=== PATIENT | male | born 1970 | race Caucasian/White ===

== ENCOUNTER 2016-05-21 06:36 | Emergency (ER) | payer MEDICAID ==
[~2016-05-21] VITALS: Ht 177.8 cm; Wt 93.0 kg
[2016-05-21] MEDS ORDERED: cloNIDine HCL 0.1 MG TAB ONE (06:53)
[2016-05-21] MEDS ORDERED: cloNIDine HCL 0.1 MG TAB PO ONE (07:00)
[2016-05-21 07:46] LABS: Basophils # (auto) 0 uL; Basophils % (auto) 0.5 % (0.0-2.0); Eosinophils # (auto) 0.3 uL; Eosinophils % (auto) 3.2 % (0.0-7.0); Hematocrit 36.8 % (41.0-53.0); Hemoglobin 12.4 g/dL (13.5-17.5); Lymphocytes # (auto) 2.1 uL; Lymphocytes % (auto) 24.8 % (10.0-50.0); Mean Corpuscular Hemoglobin 28.5 pg (28.0-32.0); Mean Corpuscular Hgb Conc. 33.6 g/dL (32.0-36.0); Mean Corpuscular Volume 84.8 fL (80.0-100.0); Mean Platelet Volume 7.9 fL (7.4-10.4); Monocytes # (auto) 0.5 uL; Monocytes % (auto) 6.1 % (0.0-12.0); Neutrophils # (auto) 5.7 uL; Neutrophils % (auto) 65.4 % (37.0-80.0); Platelet Count (auto) 316 10^3/uL (140-450); Red Cell Distribution Width 13.5 % (11.6-16.0); White Blood Cell 8.7 10^3/uL (4.4-10.8)
[2016-05-21 08:01] LABS: Urine Bilirubin Negative (Negative); Urine Blood Negative /uL (Negative); Urine Color Yellow (Yellow); Urine Glucose Normal (Normal); Urine Ketone Negative (Negative); Urine Nitrite Negative (Negative); Urine RBC 3 /hpf (0 - 3); Urine Urobilinogen Normal (Negative)
[2016-05-21 08:11] LABS: Albumin 3.6 g/dL (3.4-5.0); BUN/Creatinine Ratio 13.6; Bilirubin, Total 0.3 mg/dL (0.2-1.0); Calcium 9.2 mg/dL (8.5-10.1); Potassium 4.5 mmol/L (3.5-5.1); Total Protein 8.1 g/dL (6.4-8.2)
[2016-05-21] MEDS ORDERED: cefTRIAXone SOD 1,000 MG VL IM ONE (12:30)
[2016-05-21 12:40] VITALS: BP 120/71
== END 2016-05-21 13:03 | disposition home or self-care (01) ==
LOC: ER 06:36
DX: N17.9 Acute kidney failure, unspecified (principal); I12.9 Hypertensive chronic kidney disease with stage 1 through stage 4 chronic kidney disease, or unspecified chronic kidney disease; N39.0 Urinary tract infection, site not specified; N18.9 Chronic kidney disease, unspecified; E11.22 Type 2 diabetes mellitus with diabetic chronic kidney disease; G89.29 Other chronic pain; M54.5 Low back pain; M19.90 Unspecified osteoarthritis, unspecified site; Z59.0 Homelessness; F12.10 Cannabis abuse, uncomplicated; E27.9 Disorder of adrenal gland, unspecified
CPT/HCPCS: 36415; 74176; 80053; 81001; 82150; 83690; 85025; 96372; 99285; J0696

== ENCOUNTER 2016-06-12 05:58 | Emergency (ER) | payer MEDICAID ==
[~2016-06-12] VITALS: Ht 180.3 cm; Wt 102.1 kg
[2016-06-12 06:37] LABS: Urine Bilirubin Negative (Negative); Urine Blood Negative /uL (Negative); Urine Color Yellow (Yellow); Urine Glucose Normal (Normal); Urine Ketone TRACE (Negative); Urine Nitrite Negative (Negative); Urine RBC 2 /hpf (0 - 3); Urine Urobilinogen Normal (Negative)
[2016-06-12 06:56] LABS: Basophils # (auto) 0 uL; Basophils % (auto) 0.6 % (0.0-2.0); Eosinophils # (auto) 0.2 uL; Eosinophils % (auto) 2.5 % (0.0-7.0); Hematocrit 42.6 % (41.0-53.0); Lymphocytes # (auto) 2.2 uL; Lymphocytes % (auto) 26.4 % (10.0-50.0); Mean Corpuscular Hemoglobin 28.1 pg (28.0-32.0); Mean Corpuscular Hgb Conc. 32.9 g/dL (32.0-36.0); Mean Corpuscular Volume 85.5 fL (80.0-100.0); Monocytes # (auto) 0.6 uL; Monocytes % (auto) 6.6 % (0.0-12.0); Neutrophils # (auto) 5.4 uL; Neutrophils % (auto) 63.9 % (37.0-80.0); Platelet Count (auto) 353 10^3/uL (140-450); Red Cell Distribution Width 13.4 % (11.6-16.0); White Blood Cell 8.4 10^3/uL (4.4-10.8)
[2016-06-12 07:08] LABS: BUN/Creatinine Ratio 11.7; Bilirubin, Total 0.3 mg/dL (0.2-1.0); Calcium 9.6 mg/dL (8.5-10.1); Magnesium 2.2 mg/dL (1.6-2.6); Potassium 3.7 mmol/L (3.5-5.1); Total Protein 8.2 g/dL (6.4-8.2)
[2016-06-12] MEDS ORDERED: SODIUM CHLORIDE 0.9% 1,000 ML IV ONE (08:00)
[2016-06-12] MEDS ORDERED: PROMETHAZINE HCL 25 MG/ML 1ML IV ONE (08:00)
[2016-06-12] MEDS ORDERED: MORPHINE SULFATE 4 MG/ML SYRG IV ONE (08:00)
[2016-06-12 15:28] VITALS: BP 154/90
== END 2016-06-12 15:27 | disposition home or self-care (01) ==
LOC: ER 06:01
DX: N39.0 Urinary tract infection, site not specified (principal); E11.65 Type 2 diabetes mellitus with hyperglycemia; F15.10 Other stimulant abuse, uncomplicated; G89.29 Other chronic pain; M54.5 Low back pain; Z59.0 Homelessness; M19.90 Unspecified osteoarthritis, unspecified site; E11.22 Type 2 diabetes mellitus with diabetic chronic kidney disease; I12.9 Hypertensive chronic kidney disease with stage 1 through stage 4 chronic kidney disease, or unspecified chronic kidney disease; N18.9 Chronic kidney disease, unspecified
CPT/HCPCS: 36415; 80053; 81001; 82150; 82962; 83690; 83735; 84484; 85025; 93005; 96361; 96374; 96375; 99285; G0434; J2270; J2550; J7030

== ENCOUNTER 2016-06-19 02:51 | Emergency (ER) | payer MEDICAID ==
[~2016-06-19] VITALS: Ht 180.3 cm; Wt 99.3 kg
[2016-06-19 03:38] LABS: Basophils # (auto) 0 uL; Basophils % (auto) 0.5 % (0.0-2.0); Eosinophils # (auto) 0.3 uL; Eosinophils % (auto) 3.3 % (0.0-7.0); Hematocrit 40.2 % (41.0-53.0); Hemoglobin 13.1 g/dL (13.5-17.5); Lymphocytes # (auto) 2.5 uL; Lymphocytes % (auto) 30.1 % (10.0-50.0); Mean Corpuscular Hemoglobin 27.7 pg (28.0-32.0); Mean Corpuscular Hgb Conc. 32.5 g/dL (32.0-36.0); Mean Corpuscular Volume 85.1 fL (80.0-100.0); Mean Platelet Volume 8.6 fL (7.4-10.4); Monocytes # (auto) 0.7 uL; Monocytes % (auto) 7.8 % (0.0-12.0); Neutrophils # (auto) 4.9 uL; Neutrophils % (auto) 58.3 % (37.0-80.0); Platelet Count (auto) 269 10^3/uL (140-450); Red Cell Distribution Width 13.6 % (11.6-16.0); White Blood Cell 8.5 10^3/uL (4.4-10.8)
[2016-06-19 03:59] LABS: Albumin 3.7 g/dL (3.4-5.0); BUN/Creatinine Ratio 8.6; Calcium 9.1 mg/dL (8.5-10.1); Potassium 3.6 mmol/L (3.5-5.1)
[2016-06-19 04:02] LABS: Bilirubin, Total 0.3 mg/dL (0.2-1.0); Total Protein 7.6 g/dL (6.4-8.2)
[2016-06-19 04:28] LABS: Urine Bilirubin Negative (Negative); Urine Blood Negative /uL (Negative); Urine Color Yellow (Yellow); Urine Glucose Normal (Normal); Urine Ketone Negative (Negative); Urine Nitrite Negative (Negative); Urine RBC 3 /hpf (0 - 3); Urine Urobilinogen Normal (Negative)
[2016-06-19] MEDS ORDERED: MECLIZINE HCL 25 MG TAB PO ONE (10:30)
[2016-06-19] MEDS ORDERED: SODIUM CHLORIDE 0.9% 1,000 ML IV ONE (10:30)
[2016-06-19 10:35] VITALS: BP 156/95
[2016-06-19] MEDS ORDERED: CIPROFLOXACIN HCL 500 MG TAB PO ONE (11:45)
== END 2016-06-19 12:24 | disposition home or self-care (01) ==
LOC: ER 02:56
DX: N39.0 Urinary tract infection, site not specified (principal); M19.90 Unspecified osteoarthritis, unspecified site; I12.9 Hypertensive chronic kidney disease with stage 1 through stage 4 chronic kidney disease, or unspecified chronic kidney disease; N18.9 Chronic kidney disease, unspecified; E11.22 Type 2 diabetes mellitus with diabetic chronic kidney disease; F12.10 Cannabis abuse, uncomplicated; Z59.0 Homelessness; F19.90 Other psychoactive substance use, unspecified, uncomplicated
CPT/HCPCS: 36415; 70450; 80053; 81001; 84484; 85025; 93005; 96360; 99285; G0434; J7030; J8597

== ENCOUNTER 2016-06-27 01:04 | Emergency (ER) | payer MEDICAID ==
[~2016-06-27] VITALS: Ht 180.3 cm; Wt 103.0 kg
[2016-06-27] MEDS ORDERED: SODIUM CHLORIDE 0.9% 1,000 ML IV ONE (07:20)
[2016-06-27] MEDS ORDERED: METOCLOPRAMIDE HCL 5MG/ml INJ 2ml VIAL IV ONE (07:30)
[2016-06-27] MEDS ORDERED: KETOROLAC TROMETH 30 MG/ML 1ML VIAL IV ONE (07:30)
[2016-06-27 08:00] LABS: Basophils # (auto) 0 uL; Basophils % (auto) 0.6 % (0.0-2.0); Eosinophils # (auto) 0.3 uL; Eosinophils % (auto) 4.2 % (0.0-7.0); Hematocrit 39.5 % (41.0-53.0); Hemoglobin 12.8 g/dL (13.5-17.5); Lymphocytes # (auto) 1.8 uL; Mean Corpuscular Hemoglobin 27.4 pg (28.0-32.0); Mean Corpuscular Hgb Conc. 32.4 g/dL (32.0-36.0); Mean Corpuscular Volume 84.6 fL (80.0-100.0); Mean Platelet Volume 8.6 fL (7.4-10.4); Monocytes # (auto) 0.6 uL; Monocytes % (auto) 7.3 % (0.0-12.0); Neutrophils # (auto) 5.2 uL; Neutrophils % (auto) 64.9 % (37.0-80.0); Platelet Count (auto) 275 10^3/uL (140-450); Red Cell Distribution Width 13.7 % (11.6-16.0)
[2016-06-27 08:28] LABS: Albumin 3.7 g/dL (3.4-5.0); Calcium 8.8 mg/dL (8.5-10.1); Magnesium 2.3 mg/dL (1.6-2.6); Potassium 3.3 mmol/L (3.5-5.1)
[2016-06-27 08:31] LABS: BUN/Creatinine Ratio 7.8
[2016-06-27 08:33] LABS: Bilirubin, Total 0.3 mg/dL (0.2-1.0); Total Protein 7.7 g/dL (6.4-8.2)
[2016-06-27 09:54] LABS: Urine Bilirubin Negative (Negative); Urine Blood Negative /uL (Negative); Urine Color Yellow (Yellow); Urine Glucose Normal (Normal); Urine Ketone Negative (Negative); Urine Nitrite Negative (Negative); Urine RBC 5 /hpf (0 - 3); Urine Squamous Epithelial Cell FEW /hpf (<5); Urine Urobilinogen Normal (Negative)
[2016-06-27] MEDS ORDERED: POTASSIUM CHL 10% (20 MEQ/15ML) ORAL SOLN PO ONE (11:30)
[2016-06-27 13:00] VITALS: BP 151/82
== END 2016-06-27 12:56 | disposition home or self-care (01) ==
LOC: ER 01:05
DX: M54.16 Radiculopathy, lumbar region (principal); N39.0 Urinary tract infection, site not specified; E11.21 Type 2 diabetes mellitus with diabetic nephropathy; E87.6 Hypokalemia; R91.1 Solitary pulmonary nodule; M19.90 Unspecified osteoarthritis, unspecified site; I12.9 Hypertensive chronic kidney disease with stage 1 through stage 4 chronic kidney disease, or unspecified chronic kidney disease; N18.9 Chronic kidney disease, unspecified; E11.22 Type 2 diabetes mellitus with diabetic chronic kidney disease; F12.10 Cannabis abuse, uncomplicated; Z59.0 Homelessness
CPT/HCPCS: 36415; 71020; 71250; 80053; 81001; 83735; 84443; 85025; 93005; 96361; 96374; 96375; 99285; J1885; J2765; J7030

== ENCOUNTER 2016-06-27 18:02 | Emergency (ER) | payer MEDICAID ==
[~2016-06-27] VITALS: Ht 180.3 cm; Wt 103.0 kg
[2016-06-27 18:53] LABS: Basophils # (auto) 0 uL; Basophils % (auto) 0.1 % (0.0-2.0); Eosinophils # (auto) 0.3 uL; Eosinophils % (auto) 4.1 % (0.0-7.0); Hematocrit 39.4 % (41.0-53.0); Hemoglobin 12.7 g/dL (13.5-17.5); Lymphocytes # (auto) 2.2 uL; Lymphocytes % (auto) 27.6 % (10.0-50.0); Mean Corpuscular Hemoglobin 27.6 pg (28.0-32.0); Mean Corpuscular Hgb Conc. 32.2 g/dL (32.0-36.0); Mean Corpuscular Volume 85.7 fL (80.0-100.0); Mean Platelet Volume 8.6 fL (7.4-10.4); Monocytes # (auto) 0.6 uL; Monocytes % (auto) 7.4 % (0.0-12.0); Neutrophils # (auto) 4.9 uL; Neutrophils % (auto) 60.8 % (37.0-80.0); Platelet Count (auto) 283 10^3/uL (140-450); Red Cell Distribution Width 13.7 % (11.6-16.0)
[2016-06-27 19:25] LABS: Albumin 3.7 g/dL (3.4-5.0); BUN/Creatinine Ratio 7.8; Bilirubin, Total 0.2 mg/dL (0.2-1.0); Calcium 8.5 mg/dL (8.5-10.1); Potassium 3.7 mmol/L (3.5-5.1); Total Protein 7.6 g/dL (6.4-8.2)
[2016-06-27] MEDS ORDERED: MORPHINE SULFATE 4 MG/ML SYRG IV ONE (20:00)
[2016-06-27] MEDS ORDERED: ONDANSETRON HCL 4 MG/2 ML VIAL IV ONE (20:00)
[2016-06-27] MEDS ORDERED: SODIUM CHLORIDE 0.9% 500 ML IV ONE (20:15)
[2016-06-27 20:20] LABS: Amylase 46 U/L (25-115)
[2016-06-27 20:28] LABS: Urine Bilirubin Negative (Negative); Urine Blood Negative /uL (Negative); Urine Color Yellow (Yellow); Urine Glucose Normal (Normal); Urine Ketone Negative (Negative); Urine Nitrite Negative (Negative); Urine RBC 2 /hpf (0 - 3); Urine Squamous Epithelial Cell FEW /hpf (<5); Urine Urobilinogen Normal (Negative)
[2016-06-27] MEDS ORDERED: cloNIDine HCL 0.1 MG TAB PO ONE (21:45)
[2016-06-28 03:45] VITALS: BP 136/71
== END 2016-06-28 03:48 | disposition home or self-care (01) ==
LOC: ER 18:06
DX: K52.9 Noninfective gastroenteritis and colitis, unspecified (principal); N39.0 Urinary tract infection, site not specified; F12.10 Cannabis abuse, uncomplicated; M19.90 Unspecified osteoarthritis, unspecified site; E11.9 Type 2 diabetes mellitus without complications; I12.9 Hypertensive chronic kidney disease with stage 1 through stage 4 chronic kidney disease, or unspecified chronic kidney disease; N18.9 Chronic kidney disease, unspecified; Z59.0 Homelessness
CPT/HCPCS: 36415; 74176; 80053; 80320; 81001; 82150; 83690; 84484; 85025; 93005; 96361; 96374; 96375; 99285; G0434; J2270; J2405

== ENCOUNTER 2016-07-03 15:15 | Inpatient (IN) | payer MEDICAID ==
[~2016-07-03] VITALS: Ht 180.3 cm; Wt 97.1 kg
[2016-07-03 15:54] LABS: Basophils # (auto) 0.1 uL; Basophils % (auto) 0.9 % (0.0-2.0); Eosinophils # (auto) 0.4 uL; Hematocrit 40.3 % (41.0-53.0); Hemoglobin 13.3 g/dL (13.5-17.5); Lymphocytes # (auto) 2.1 uL; Lymphocytes % (auto) 28.1 % (10.0-50.0); Mean Corpuscular Hemoglobin 27.9 pg (28.0-32.0); Mean Corpuscular Volume 84.4 fL (80.0-100.0); Mean Platelet Volume 8.8 fL (7.4-10.4); Monocytes # (auto) 0.5 uL; Monocytes % (auto) 6.9 % (0.0-12.0); Neutrophils # (auto) 4.5 uL; Neutrophils % (auto) 59.1 % (37.0-80.0); Platelet Count (auto) 295 10^3/uL (140-450); Red Cell Distribution Width 13.5 % (11.6-16.0); White Blood Cell 7.6 10^3/uL (4.4-10.8)
[2016-07-03 16:17] LABS: Albumin 3.6 g/dL (3.4-5.0); Anion Gap 9 (5-15); Aspartate Aminotransferase 13 U/L (15-37); BUN/Creatinine Ratio 7.1; Blood Urea Nitrogen 18 mg/dL (7-18); Calcium 8.7 mg/dL (8.5-10.1); Carbon Dioxide 25 mmol/L (21-32); Chloride 106 mmol/L (98-107); GFR African American 35 mL/min; GFR Non-African American 29 mL/min; Glucose 129 mg/dL (74-106); Potassium 3.4 mmol/L (3.5-5.1); Sodium 140 mmol/L (136-145)
[2016-07-03 16:22] LABS: Alkaline Phosphatase 60 U/L (45-117); Bilirubin, Total 0.3 mg/dL (0.2-1.0); Total Protein 7.5 g/dL (6.4-8.2)
[2016-07-03] MEDS ORDERED: SODIUM CHLORIDE 0.9% 1,000 ML IV ONE (20:10)
[2016-07-03] MEDS ORDERED: LABETALOL HCL 5 MG/ML 4ML SYRINGE IV ONE (20:15)
[2016-07-03] MEDS ORDERED: MORPHINE SULFATE 4 MG/ML SYRG IV ONE (20:15)
[2016-07-03] MEDS ORDERED: POTASSIUM CHL 10% (20 MEQ/15ML) ORAL SOLN PO ONE (20:15)
[2016-07-03] MEDS ORDERED: ONDANSETRON HCL 4 MG/2 ML VIAL IV ONE (20:15)
[2016-07-03 20:28] LABS: Amylase 25 U/L (25-115)
[2016-07-03] MEDS ORDERED: ASPirin 325 MG TAB PO ONE (20:30)
[2016-07-03] MEDS ORDERED: SODIUM CHLORIDE 0.9% 250 ML IV ONE (22:34)
[2016-07-03] MEDS ORDERED: CIPROFLOXACIN 400MG/200ML 200 ML IV ONE (22:45)
[2016-07-03] MEDS: metroNIDAZOLE 500MG/100ML 100 ML IV ONE (23:37)
[2016-07-04] MEDS: metroNIDAZOLE 500MG/100ML 100 ML IV ONE (00:55)
[2016-07-04] MEDS ORDERED: HYDROcodone-ACET 7.5/325MG TAB PO ONE (01:45)
[2016-07-04] MEDS ORDERED: KETOROLAC TROMETH 30 MG/ML 1ML VIAL IV ONE (01:45)
[2016-07-04] MEDS ORDERED: PROMETHAZINE HCL 25 MG/ML 1ML IV PRN (08:30)
[2016-07-04] MEDS ORDERED: ACETAMINOPHEN 325 MG TAB PO PRN ×2 (08:30→15:45)
[2016-07-04] MEDS ORDERED: TEMAZEPAM 15 MG CAP PO PRN ×2 (08:30→15:45)
[2016-07-04] MEDS ORDERED: MORPHINE SULF INJ 2 MG/ML SYRINGE 1ML IV PRN ×2 (08:30→15:45)
[2016-07-04] MEDS ORDERED: CIPROFLOXACIN 400MG/200ML 200 ML IV ONE (08:30)
[2016-07-04] MEDS ORDERED: NITROGLYCERIN 0.4 MG SL TAB SL PRN (08:30)
[2016-07-04] MEDS ORDERED: metroNIDAZOLE 500MG/100ML 100 ML IV ONE (08:30)
[2016-07-04] MEDS: SODIUM CHLORIDE 0.9% 1,000 ML IV SCH ×2 (08:47→10:09)
[2016-07-04] MEDS: MORPHINE SULF INJ 2 MG/ML SYRINGE 1ML IV PRN ×3 (08:48→20:18)
[2016-07-04 09:00] VITALS: BP 148/90
[2016-07-04] MEDS ORDERED: ENOXAPARIN SOD 30 MG/0.3 ML SYRINGE SC SCH (10:00)
[2016-07-04] MEDS: ZINC SULFATE 220 MG CAP PO SCH (10:08)
[2016-07-04] MEDS: ASCORBIC ACID 500 MG TAB PO SCH ×2 (10:08→21:36)
[2016-07-04 13:00] VITALS: BP 152/91
[2016-07-04] MEDS ORDERED: DEXTROSE (50%) 50ML SYRG IV PRN (15:30)
[2016-07-04] MEDS ORDERED: ONDANSETRON HCL 4 MG/2 ML VIAL IV PRN (15:45)
[2016-07-04] MEDS ORDERED: DOCUSATE SOD 100 MG CAP PO PRN (15:45)
[2016-07-04 16:07] LABS: Urine Bilirubin Negative (Negative); Urine Color Yellow (Yellow); Urine Glucose Normal (Normal); Urine Ketone Negative (Negative); Urine Nitrite Negative (Negative); Urine RBC 10 /hpf (0 - 3); Urine Squamous Epithelial Cell FEW /hpf (<5); Urine Urobilinogen Normal (Negative)
[2016-07-04 16:08] LABS: Urine Blood 1+ /uL (Negative)
[2016-07-04 17:00] VITALS: BP 157/97
[2016-07-04] MEDS: InsuLIN REG 1unit/0.01ml Soln (100units/ml) SC SCH ×2 (17:00→21:39)
[2016-07-04] MEDS: ACCU-CHEK COMFORT CURVE STRIP VI SCH ×2 (17:26→21:37)
[2016-07-04] MEDS: metFORMIN HYDROCHLORIDE 500 MG TAB PO SCH (17:50)
[2016-07-04] MEDS: ATORVASTATIN 20 MG TAB PO SCH (21:35)
[2016-07-04] MEDS: GABAPENTIN 300 MG CAP PO SCH (21:35)
[2016-07-04] MEDS: SODIUM CHLOR 0.9% PF (SALINE LOCK) 10ML VIAL IV SCH (21:36)
[2016-07-04] MEDS: LISINOPRIL 20 MG TAB PO SCH (21:36)
[2016-07-04 22:00] VITALS: BP 147/92
[2016-07-05] MEDS: SODIUM CHLORIDE 0.9% 1,000 ML IV SCH ×3 (01:07→17:44)
[2016-07-05] MEDS: MORPHINE SULF INJ 2 MG/ML SYRINGE 1ML IV PRN ×5 (04:30→21:55)
[2016-07-05 04:54] VITALS: BP 153/99
[2016-07-05 06:19] LABS: Basophils # (auto) 0.1 uL; Basophils % (auto) 0.5 % (0.0-2.0); Eosinophils # (auto) 0.4 uL; Eosinophils % (auto) 3.8 % (0.0-7.0); Hematocrit 37.9 % (41.0-53.0); Hemoglobin 12.2 g/dL (13.5-17.5); Lymphocytes # (auto) 1.7 uL; Lymphocytes % (auto) 16.3 % (10.0-50.0); Mean Corpuscular Hemoglobin 27.3 pg (28.0-32.0); Mean Corpuscular Hgb Conc. 32.2 g/dL (32.0-36.0); Mean Corpuscular Volume 84.8 fL (80.0-100.0); Monocytes # (auto) 0.6 uL; Neutrophils # (auto) 7.5 uL; Neutrophils % (auto) 73.4 % (37.0-80.0); Platelet Count (auto) 248 10^3/uL (140-450); Red Cell Distribution Width 13.4 % (11.6-16.0); White Blood Cell 10.1 10^3/uL (4.4-10.8)
[2016-07-05] MEDS: glyBURIDE 2.5 MG TAB PO SCH (06:28)
[2016-07-05] MEDS: SODIUM CHLOR 0.9% PF (SALINE LOCK) 10ML VIAL IV SCH ×3 (06:29→21:55)
[2016-07-05] MEDS: GABAPENTIN 300 MG CAP PO SCH ×3 (06:29→21:54)
[2016-07-05 06:56] LABS: Albumin 3.1 g/dL (3.4-5.0); BUN/Creatinine Ratio 8.6; Bilirubin, Total 0.3 mg/dL (0.2-1.0); Calcium 8.5 mg/dL (8.5-10.1); Potassium 3.8 mmol/L (3.5-5.1); Total Protein 6.4 g/dL (6.4-8.2)
[2016-07-05] MEDS: InsuLIN REG 1unit/0.01ml Soln (100units/ml) SC SCH ×4 (07:00→21:55)
[2016-07-05] MEDS: ACCU-CHEK COMFORT CURVE STRIP VI SCH ×4 (07:07→21:56)
[2016-07-05] MEDS: metFORMIN HYDROCHLORIDE 500 MG TAB PO SCH ×2 (07:37→17:44)
[2016-07-05 08:00] VITALS: BP 171/99
[2016-07-05 09:00] VITALS: BP 171/99
[2016-07-05] MEDS: ENOXAPARIN SOD 40 MG/0.4 ML SYRINGE SC SCH (09:19)
[2016-07-05] MEDS: MULTIPLE VITAMIN TAB PO SCH (09:19)
[2016-07-05] MEDS: ASCORBIC ACID 500 MG TAB PO SCH ×2 (09:19→21:54)
[2016-07-05] MEDS: LEVOFLOXACIN 500MG 100 ML IV SCH (09:19)
[2016-07-05] MEDS: ZINC SULFATE 220 MG CAP PO SCH (09:19)
[2016-07-05] MEDS: LISINOPRIL 20 MG TAB PO SCH ×2 (09:20→21:54)
[2016-07-05 13:00] VITALS: BP 156/91
[2016-07-05] MEDS: OXYCODONE W/ ACETAMINOPHEN 5/325MG TABLET PO PRN (15:46)
[2016-07-05 17:00] VITALS: BP_SYST 117; BP_SYST 164; BP_DIAS 76; BP_DIAS 95
[2016-07-05 21:35] VITALS: BP 155/91
[2016-07-05] MEDS: ATORVASTATIN 20 MG TAB PO SCH (21:53)
[2016-07-05] MEDS: SULFAMETHOX W/TRIMETH(800/160MG) DS TAB PO SCH (21:54)
[2016-07-06] VITALS (7 sets, daily range): BP systolic 108–175; BP diastolic 68–103
[2016-07-06] MEDS: SODIUM CHLORIDE 0.9% 1,000 ML IV SCH ×3 (02:07→18:24)
[2016-07-06] MEDS: MORPHINE SULF INJ 2 MG/ML SYRINGE 1ML IV PRN ×5 (03:46→20:06)
[2016-07-06 05:40] LABS: Basophils # (auto) 0.1 uL; Basophils % (auto) 0.5 % (0.0-2.0); Eosinophils # (auto) 0.4 uL; Eosinophils % (auto) 4.4 % (0.0-7.0); Hematocrit 37.4 % (41.0-53.0); Hemoglobin 12.6 g/dL (13.5-17.5); Lymphocytes # (auto) 1.7 uL; Lymphocytes % (auto) 18.2 % (10.0-50.0); Mean Corpuscular Hemoglobin 28.3 pg (28.0-32.0); Mean Corpuscular Hgb Conc. 33.8 g/dL (32.0-36.0); Mean Corpuscular Volume 83.7 fL (80.0-100.0); Mean Platelet Volume 9.6 fL (7.4-10.4); Monocytes # (auto) 0.7 uL; Monocytes % (auto) 7.5 % (0.0-12.0); Neutrophils # (auto) 6.6 uL; Neutrophils % (auto) 69.4 % (37.0-80.0); Platelet Count (auto) 235 10^3/uL (140-450); Red Cell Distribution Width 13.5 % (11.6-16.0); White Blood Cell 9.4 10^3/uL (4.4-10.8)
[2016-07-06 05:58] LABS: BUN/Creatinine Ratio 8.5; Calcium 8.6 mg/dL (8.5-10.1)
[2016-07-06] MEDS: ACCU-CHEK COMFORT CURVE STRIP VI SCH ×4 (06:37→22:00)
[2016-07-06] MEDS: InsuLIN REG 1unit/0.01ml Soln (100units/ml) SC SCH ×4 (06:37→22:00)
[2016-07-06] MEDS: SODIUM CHLOR 0.9% PF (SALINE LOCK) 10ML VIAL IV SCH ×3 (06:37→21:10)
[2016-07-06] MEDS: glyBURIDE 2.5 MG TAB PO SCH (06:37)
[2016-07-06] MEDS: GABAPENTIN 300 MG CAP PO SCH ×3 (06:37→21:07)
[2016-07-06] MEDS: metFORMIN HYDROCHLORIDE 500 MG TAB PO SCH ×2 (07:48→18:24)
[2016-07-06] MEDS: PHENAZOPYRIDINE HCL 100 MG TAB PO SCH ×3 (07:49→18:24)
[2016-07-06] MEDS: SULFAMETHOX W/TRIMETH(800/160MG) DS TAB PO SCH ×2 (09:19→21:06)
[2016-07-06] MEDS: LEVOFLOXACIN 500MG 100 ML IV SCH (09:19)
[2016-07-06] MEDS: MULTIPLE VITAMIN TAB PO SCH (09:19)
[2016-07-06] MEDS: ZINC SULFATE 220 MG CAP PO SCH (09:19)
[2016-07-06] MEDS: LISINOPRIL 20 MG TAB PO SCH ×2 (09:20→21:07)
[2016-07-06] MEDS: ASCORBIC ACID 500 MG TAB PO SCH ×2 (09:20→21:07)
[2016-07-06] MEDS: ENOXAPARIN SOD 40 MG/0.4 ML SYRINGE SC SCH (09:20)
[2016-07-06] MEDS: LABETALOL HCL 5 MG/ML 4ML SYRINGE IV PRN ×2 (13:33→15:49)
[2016-07-06] MEDS: METOPROLOL TARTRATE 25 MG TAB PO SCH ×2 (18:24→21:08)
[2016-07-06] MEDS: ATORVASTATIN 20 MG TAB PO SCH (21:06)
[2016-07-07] VITALS (7 sets, daily range): BP systolic 143–168; BP diastolic 88–101
[2016-07-07] MEDS: MORPHINE SULF INJ 2 MG/ML SYRINGE 1ML IV PRN ×5 (03:05→20:30)
[2016-07-07] MEDS: SODIUM CHLORIDE 0.9% 1,000 ML IV SCH ×3 (03:07→19:47)
[2016-07-07] MEDS: SODIUM CHLOR 0.9% PF (SALINE LOCK) 10ML VIAL IV SCH ×3 (06:11→22:16)
[2016-07-07] MEDS: GABAPENTIN 300 MG CAP PO SCH ×3 (06:11→22:11)
[2016-07-07 06:30] LABS: Basophils # (auto) 0 uL; Basophils % (auto) 0.6 % (0.0-2.0); Eosinophils # (auto) 0.4 uL; Eosinophils % (auto) 4.7 % (0.0-7.0); Hematocrit 37.7 % (41.0-53.0); Hemoglobin 13.1 g/dL (13.5-17.5); Lymphocytes # (auto) 1.7 uL; Lymphocytes % (auto) 19.1 % (10.0-50.0); Mean Corpuscular Hemoglobin 28.8 pg (28.0-32.0); Mean Corpuscular Hgb Conc. 34.6 g/dL (32.0-36.0); Mean Corpuscular Volume 83.2 fL (80.0-100.0); Mean Platelet Volume 9.4 fL (7.4-10.4); Monocytes # (auto) 0.7 uL; Monocytes % (auto) 8.3 % (0.0-12.0); Neutrophils # (auto) 5.9 uL; Neutrophils % (auto) 67.3 % (37.0-80.0); Platelet Count (auto) 235 10^3/uL (140-450); Red Cell Distribution Width 13.8 % (11.6-16.0); White Blood Cell 8.8 10^3/uL (4.4-10.8)
[2016-07-07] MEDS: InsuLIN REG 1unit/0.01ml Soln (100units/ml) SC SCH ×4 (07:00→22:00)
[2016-07-07] MEDS: ACCU-CHEK COMFORT CURVE STRIP VI SCH ×4 (07:14→22:15)
[2016-07-07] MEDS: glyBURIDE 2.5 MG TAB PO SCH (07:16)
[2016-07-07 07:20] LABS: Albumin 2.9 g/dL (3.4-5.0); BUN/Creatinine Ratio 8.6; Bilirubin, Total 0.4 mg/dL (0.2-1.0); Calcium 8.7 mg/dL (8.5-10.1); Potassium 4.1 mmol/L (3.5-5.1); Total Protein 6.9 g/dL (6.4-8.2)
[2016-07-07] MEDS: metFORMIN HYDROCHLORIDE 500 MG TAB PO SCH (08:30)
[2016-07-07] MEDS: PHENAZOPYRIDINE HCL 100 MG TAB PO SCH ×3 (08:30→18:02)
[2016-07-07] MEDS: LABETALOL HCL 5 MG/ML 4ML SYRINGE IV PRN (08:52)
[2016-07-07] MEDS: MULTIPLE VITAMIN TAB PO SCH (09:55)
[2016-07-07] MEDS: ASCORBIC ACID 500 MG TAB PO SCH ×2 (09:55→22:11)
[2016-07-07] MEDS: LISINOPRIL 20 MG TAB PO SCH (09:56)
[2016-07-07] MEDS: SULFAMETHOX W/TRIMETH(800/160MG) DS TAB PO SCH ×2 (09:57→22:12)
[2016-07-07] MEDS: METOPROLOL TARTRATE 25 MG TAB PO SCH ×2 (09:57→22:12)
[2016-07-07] MEDS: ENOXAPARIN SOD 40 MG/0.4 ML SYRINGE SC SCH (09:57)
[2016-07-07] MEDS: ZINC SULFATE 220 MG CAP PO SCH (09:58)
[2016-07-07] MEDS: LEVOFLOXACIN 250MG 50 ML IV SCH (09:58)
[2016-07-07] MEDS: ATORVASTATIN 20 MG TAB PO SCH (22:11)
[2016-07-08] VITALS (7 sets, daily range): BP systolic 130–149; BP diastolic 83–93
[2016-07-08] MEDS: MORPHINE SULF INJ 2 MG/ML SYRINGE 1ML IV PRN ×5 (00:35→21:42)
[2016-07-08] MEDS: SODIUM CHLORIDE 0.9% 1,000 ML IV SCH ×3 (04:07→20:47)
[2016-07-08] MEDS: GABAPENTIN 300 MG CAP PO SCH ×3 (05:16→21:42)
[2016-07-08] MEDS: SODIUM CHLOR 0.9% PF (SALINE LOCK) 10ML VIAL IV SCH ×3 (05:21→21:46)
[2016-07-08] MEDS: ACCU-CHEK COMFORT CURVE STRIP VI SCH ×4 (06:20→21:46)
[2016-07-08] MEDS: InsuLIN REG 1unit/0.01ml Soln (100units/ml) SC SCH ×4 (06:20→22:00)
[2016-07-08 06:27] LABS: Basophils # (auto) 0.1 uL; Basophils % (auto) 0.6 % (0.0-2.0); Eosinophils # (auto) 0.6 uL; Eosinophils % (auto) 6.9 % (0.0-7.0); Hematocrit 38.7 % (41.0-53.0); Hemoglobin 13.2 g/dL (13.5-17.5); Lymphocytes % (auto) 22.5 % (10.0-50.0); Mean Corpuscular Hemoglobin 28.5 pg (28.0-32.0); Mean Corpuscular Volume 83.8 fL (80.0-100.0); Mean Platelet Volume 9.4 fL (7.4-10.4); Monocytes # (auto) 0.7 uL; Monocytes % (auto) 7.5 % (0.0-12.0); Neutrophils # (auto) 5.5 uL; Neutrophils % (auto) 62.5 % (37.0-80.0); Platelet Count (auto) 240 10^3/uL (140-450); Red Cell Distribution Width 13.3 % (11.6-16.0); White Blood Cell 8.8 10^3/uL (4.4-10.8)
[2016-07-08 06:52] LABS: Calcium 8.7 mg/dL (8.5-10.1); Potassium 4.1 mmol/L (3.5-5.1)
[2016-07-08 06:55] LABS: BUN/Creatinine Ratio 10.5
[2016-07-08] MEDS: glyBURIDE 2.5 MG TAB PO SCH (07:14)
[2016-07-08] MEDS: OXYCODONE W/ ACETAMINOPHEN 5/325MG TABLET PO PRN (07:15)
[2016-07-08] MEDS: MULTIPLE VITAMIN TAB PO SCH (10:43)
[2016-07-08] MEDS: ZINC SULFATE 220 MG CAP PO SCH (10:43)
[2016-07-08] MEDS: ASCORBIC ACID 500 MG TAB PO SCH ×2 (10:43→21:42)
[2016-07-08] MEDS: LEVOFLOXACIN 250MG 50 ML IV SCH (10:43)
[2016-07-08] MEDS: METOPROLOL TARTRATE 25 MG TAB PO SCH ×2 (10:44→21:42)
[2016-07-08] MEDS: ENOXAPARIN SOD 40 MG/0.4 ML SYRINGE SC SCH (10:44)
[2016-07-08] MEDS: ATORVASTATIN 20 MG TAB PO SCH (21:42)
[2016-07-09] VITALS (7 sets, daily range): BP systolic 117–138; BP diastolic 77–86
[2016-07-09] MEDS: MORPHINE SULF INJ 2 MG/ML SYRINGE 1ML IV PRN ×5 (03:34→20:37)
[2016-07-09] MEDS: SODIUM CHLORIDE 0.9% 1,000 ML IV SCH ×3 (04:51→21:47)
[2016-07-09] MEDS: GABAPENTIN 300 MG CAP PO SCH ×3 (06:04→22:16)
[2016-07-09] MEDS: SODIUM CHLOR 0.9% PF (SALINE LOCK) 10ML VIAL IV SCH ×3 (06:04→22:14)
[2016-07-09] MEDS: InsuLIN REG 1unit/0.01ml Soln (100units/ml) SC SCH ×4 (06:44→22:00)
[2016-07-09] MEDS: glyBURIDE 2.5 MG TAB PO SCH (06:44)
[2016-07-09] MEDS: ACCU-CHEK COMFORT CURVE STRIP VI SCH ×4 (06:44→22:00)
[2016-07-09 06:52] LABS: Albumin 3.1 g/dL (3.4-5.0); BUN/Creatinine Ratio 12.1; Calcium 8.5 mg/dL (8.5-10.1)
[2016-07-09 07:58] LABS: Bilirubin, Total 0.2 mg/dL (0.2-1.0); Total Protein 6.8 g/dL (6.4-8.2)
[2016-07-09] MEDS: ASCORBIC ACID 500 MG TAB PO SCH ×2 (10:55→22:14)
[2016-07-09] MEDS: ZINC SULFATE 220 MG CAP PO SCH (10:55)
[2016-07-09] MEDS: MULTIPLE VITAMIN TAB PO SCH (10:55)
[2016-07-09] MEDS: LEVOFLOXACIN 250MG 50 ML IV SCH (10:55)
[2016-07-09] MEDS: METOPROLOL TARTRATE 25 MG TAB PO SCH ×2 (10:56→22:15)
[2016-07-09] MEDS: ENOXAPARIN SOD 40 MG/0.4 ML SYRINGE SC SCH (10:57)
[2016-07-09] MEDS: OXYCODONE W/ ACETAMINOPHEN 5/325MG TABLET PO PRN (17:49)
[2016-07-09] MEDS: ATORVASTATIN 20 MG TAB PO SCH (22:16)
[2016-07-10] MEDS: MORPHINE SULF INJ 2 MG/ML SYRINGE 1ML IV PRN ×3 (02:32→12:18)
[2016-07-10 05:00] VITALS: BP 148/87
[2016-07-10] MEDS: SODIUM CHLORIDE 0.9% 1,000 ML IV SCH (06:07)
[2016-07-10] MEDS: GABAPENTIN 300 MG CAP PO SCH (06:08)
[2016-07-10] MEDS: SODIUM CHLOR 0.9% PF (SALINE LOCK) 10ML VIAL IV SCH (06:08)
[2016-07-10] MEDS: ACCU-CHEK COMFORT CURVE STRIP VI SCH ×2 (06:17→11:40)
[2016-07-10] MEDS: InsuLIN REG 1unit/0.01ml Soln (100units/ml) SC SCH ×2 (06:17→11:30)
[2016-07-10] MEDS: glyBURIDE 2.5 MG TAB PO SCH (06:30)
[2016-07-10 08:18] VITALS: BP 140/73
[2016-07-10 08:50] LABS: BUN/Creatinine Ratio 12.5; Calcium 8.7 mg/dL (8.5-10.1); Potassium 4.1 mmol/L (3.5-5.1)
[2016-07-10 09:17] VITALS: BP 155/86
[2016-07-10] MEDS: LEVOFLOXACIN 250MG 50 ML IV SCH (10:13)
[2016-07-10] MEDS: ZINC SULFATE 220 MG CAP PO SCH (10:13)
[2016-07-10] MEDS: ASCORBIC ACID 500 MG TAB PO SCH (10:13)
[2016-07-10] MEDS: OXYCODONE W/ ACETAMINOPHEN 5/325MG TABLET PO PRN (10:14)
[2016-07-10] MEDS: METOPROLOL TARTRATE 25 MG TAB PO SCH (10:14)
[2016-07-10] MEDS: ENOXAPARIN SOD 40 MG/0.4 ML SYRINGE SC SCH (10:15)
[2016-07-10] MEDS: MULTIPLE VITAMIN TAB PO SCH (10:15)
[2016-07-10 13:00] VITALS: BP 152/90
[2016-07-10 13:39] VITALS: BP 106/71
== END 2016-07-10 15:35 | disposition home or self-care (01) | DRG 463 ==
LOC: ER 15:20 → OVERFLOW 15:21 → EAST 07-04 09:05 → TELE-EAST 07-06 15:53
PROVIDERS: ADMIT Emergency Medicine; ATTEND Internal Medicine
DX: N10 Acute pyelonephritis (principal); E11.22 Type 2 diabetes mellitus with diabetic chronic kidney disease; N17.9 Acute kidney failure, unspecified; N18.4 Chronic kidney disease, stage 4 (severe); E44.1 Mild protein-calorie malnutrition; E87.1 Hypo-osmolality and hyponatremia; K72.90 Hepatic failure, unspecified without coma; E78.5 Hyperlipidemia, unspecified; D63.8 Anemia in other chronic diseases classified elsewhere; I12.9 Hypertensive chronic kidney disease with stage 1 through stage 4 chronic kidney disease, or unspecified chronic kidney disease; M19.90 Unspecified osteoarthritis, unspecified site; G89.29 Other chronic pain; R07.89 Other chest pain; N40.0 Benign prostatic hyperplasia without lower urinary tract symptoms; F17.210 Nicotine dependence, cigarettes, uncomplicated; M54.9 Dorsalgia, unspecified; Z82.3 Family history of stroke; Z83.3 Family history of diabetes mellitus; Z59.0 Homelessness; Z68.29 Body mass index [BMI] 29.0-29.9, adult; Z80.9 Family history of malignant neoplasm, unspecified
CPT/HCPCS: 36415; 74176; 80048; 80053; 81001; 82150; 82962; 83036; 83605; 83690; 84484; 85025; 87040; 87086; 93005; 96361; 96365; 96366; 96367; 96372; 96375; G0434; J1815; J1885; J1956; J2405; J3490

== ENCOUNTER 2016-07-14 07:12 | Inpatient (IN) | payer MEDICAID ==
[~2016-07-14] VITALS: Ht 180.3 cm; Wt 101.6 kg
[2016-07-14] MEDS ORDERED: KETOROLAC TROMETH 30 MG/ML 1ML VIAL IV ONE (07:30)
[2016-07-14] MEDS ORDERED: SODIUM CHLORIDE 0.9% 1,000 ML IVB ONE (07:30)
[2016-07-14] MEDS ORDERED: cloNIDine HCL 0.1 MG TAB PO ONE (07:30)
[2016-07-14] MEDS: SODIUM CHLORIDE 0.9% 1,000 ML IV ONE ×2 (07:30→09:30)
[2016-07-14 07:54] LABS: Urine Bilirubin Negative (Negative); Urine Blood Negative /uL (Negative); Urine Color Yellow (Yellow); Urine Glucose Normal (Normal); Urine Ketone Negative (Negative); Urine Nitrite Negative (Negative); Urine RBC 7 /hpf (0 - 3); Urine Squamous Epithelial Cell FEW /hpf (<5); Urine Urobilinogen Normal (Negative)
[2016-07-14 08:14] LABS: Basophils # (auto) 0 uL; Basophils % (auto) 0.5 % (0.0-2.0); Eosinophils # (auto) 0.6 uL; Eosinophils % (auto) 7.5 % (0.0-7.0); Hematocrit 41.9 % (41.0-53.0); Hemoglobin 14.6 g/dL (13.5-17.5); Lymphocytes # (auto) 1.9 uL; Lymphocytes % (auto) 23.5 % (10.0-50.0); Mean Corpuscular Hemoglobin 29.1 pg (28.0-32.0); Mean Corpuscular Hgb Conc. 34.8 g/dL (32.0-36.0); Mean Corpuscular Volume 83.7 fL (80.0-100.0); Mean Platelet Volume 8.9 fL (7.4-10.4); Monocytes # (auto) 0.5 uL; Monocytes % (auto) 6.2 % (0.0-12.0); Neutrophils % (auto) 62.3 % (37.0-80.0); Platelet Count (auto) 331 10^3/uL (140-450); Red Cell Distribution Width 13.6 % (11.6-16.0)
[2016-07-14 08:28] LABS: INR 1.15 (0.9-1.15); Partial Thromboplastin Time 28.3 sec (22.64-33.71); Prothrombin Time 11.8 sec (9.37-12.3)
[2016-07-14 08:35] LABS: Albumin 3.8 g/dL (3.4-5.0); BUN/Creatinine Ratio 12.1; Bilirubin, Total 0.5 mg/dL (0.2-1.0); Calcium 9.1 mg/dL (8.5-10.1); Potassium 3.8 mmol/L (3.5-5.1); Total Protein 7.8 g/dL (6.4-8.2)
[2016-07-14] MEDS ORDERED: CIPROFLOXACIN 400MG/200ML 200 ML IV ONE (08:45)
[2016-07-14] MEDS ORDERED: cefTRIAXone 1GM/50ML D5W 50 ML IV ONE (10:30)
[2016-07-14] MEDS ORDERED: TEMAZEPAM 15 MG CAP PO PRN (10:30)
[2016-07-14] MEDS ORDERED: ONDANSETRON HCL 4 MG/2 ML VIAL IV PRN (10:30)
[2016-07-14] MEDS ORDERED: ACETAMINOPHEN 325 MG TAB PO PRN (10:30)
[2016-07-14] MEDS ORDERED: DOCUSATE SOD 100 MG CAP PO PRN (10:30)
[2016-07-14] MEDS ORDERED: cloNIDine HCL 0.1 MG TAB PO PRN (10:30)
[2016-07-14] MEDS ORDERED: glyBURIDE 2.5 MG TAB PO ONE (10:30)
[2016-07-14] MEDS ORDERED: HYDROcodone-ACET 10/325MG TAB PO PRN (10:30)
[2016-07-14] MEDS ORDERED: DEXTROSE (50%) 50ML SYRG IV PRN (10:30)
[2016-07-14] MEDS: LISINOPRIL 20 MG TAB PO ONE ×2 (10:51→11:00)
[2016-07-14] MEDS: MULTIPLE VITAMIN TAB PO SCH (11:01)
[2016-07-14] MEDS: InsuLIN REG 1unit/0.01ml Soln (100units/ml) SC SCH ×3 (11:25→22:00)
[2016-07-14] MEDS: ACCU-CHEK COMFORT CURVE STRIP VI SCH ×3 (11:30→22:46)
[2016-07-14] MEDS: MORPHINE SULF INJ 2 MG/ML SYRINGE 1ML IV PRN ×2 (11:30→18:55)
[2016-07-14] MEDS ORDERED: METF-316 PO (13:00)
[2016-07-14] MEDS ORDERED: GLYB2.5T76 PO (13:00)
[2016-07-14] MEDS ORDERED: LOVA10TA54 PO (13:00)
[2016-07-14] MEDS ORDERED: GAB300C PO (13:00)
[2016-07-14] MEDS ORDERED: PERCOT PO (13:00)
[2016-07-14 13:21] VITALS: BP 143/80
[2016-07-14] MEDS: GABAPENTIN 300 MG CAP PO SCH ×2 (14:17→22:45)
[2016-07-14] MEDS: SODIUM CHLOR 0.9% PF (SALINE LOCK) 10ML VIAL IV SCH ×2 (14:18→22:44)
[2016-07-14 16:49] VITALS: BP 137/71
[2016-07-14 19:30] VITALS: BP 117/72
[2016-07-14 21:36] VITALS: BP 117/72
[2016-07-14] MEDS: ATORVASTATIN 20 MG TAB PO SCH (22:44)
[2016-07-14] MEDS: LISINOPRIL 20 MG TAB PO SCH (22:45)
[2016-07-15] MEDS: MORPHINE SULF INJ 2 MG/ML SYRINGE 1ML IV PRN ×4 (03:22→23:22)
[2016-07-15] MEDS: GABAPENTIN 300 MG CAP PO SCH ×2 (05:00→18:16)
[2016-07-15] MEDS: SODIUM CHLOR 0.9% PF (SALINE LOCK) 10ML VIAL IV SCH ×3 (05:00→22:24)
[2016-07-15 05:28] LABS: Basophils # (auto) 0.1 uL; Basophils % (auto) 0.7 % (0.0-2.0); DEFINITIVE VIEW TRANSMISSION; Eosinophils # (auto) 0.7 uL; Eosinophils % (auto) 7.3 % (0.0-7.0); Hematocrit 35.8 % (41.0-53.0); Hemoglobin 12.2 g/dL (13.5-17.5); Lymphocytes # (auto) 2.5 uL; Lymphocytes % (auto) 25.4 % (10.0-50.0); Mean Corpuscular Hemoglobin 28.5 pg (28.0-32.0); Mean Corpuscular Volume 83.8 fL (80.0-100.0); Mean Platelet Volume 8.8 fL (7.4-10.4); Monocytes # (auto) 0.6 uL; Monocytes % (auto) 6.1 % (0.0-12.0); Neutrophils # (auto) 5.8 uL; Neutrophils % (auto) 60.5 % (37.0-80.0); Platelet Count (auto) 277 10^3/uL (140-450); Red Cell Distribution Width 13.6 % (11.6-16.0); White Blood Cell 9.7 10^3/uL (4.4-10.8)
[2016-07-15 05:40] VITALS: BP 130/74
[2016-07-15 05:48] LABS: Potassium 3.7 mmol/L (3.5-5.1)
[2016-07-15 05:54] LABS: Albumin 3.1 g/dL (3.4-5.0); BUN/Creatinine Ratio 13.1; Calcium 8.4 mg/dL (8.5-10.1)
[2016-07-15 05:57] LABS: Bilirubin, Total 0.4 mg/dL (0.2-1.0); Total Protein 6.3 g/dL (6.4-8.2)
[2016-07-15] MEDS: ACCU-CHEK COMFORT CURVE STRIP VI SCH ×4 (06:30→22:00)
[2016-07-15] MEDS: InsuLIN REG 1unit/0.01ml Soln (100units/ml) SC SCH ×4 (06:31→22:52)
[2016-07-15] MEDS: glyBURIDE 2.5 MG TAB PO SCH (06:31)
[2016-07-15 09:00] VITALS: BP 144/83
[2016-07-15] MEDS: cefTRIAXone 1GM/50ML D5W 50 ML IV SCH (09:47)
[2016-07-15] MEDS: LISINOPRIL 20 MG TAB PO SCH ×2 (10:51→22:48)
[2016-07-15] MEDS: MULTIPLE VITAMIN TAB PO SCH (10:52)
[2016-07-15 12:41] VITALS: BP 123/73
[2016-07-15 22:00] VITALS: BP 137/80
[2016-07-15] MEDS: ATORVASTATIN 20 MG TAB PO SCH (22:49)
[2016-07-16] MEDS: MORPHINE SULF INJ 2 MG/ML SYRINGE 1ML IV PRN ×2 (03:23→08:10)
[2016-07-16 05:38] VITALS: BP 152/92
[2016-07-16] MEDS: SODIUM CHLOR 0.9% PF (SALINE LOCK) 10ML VIAL IV SCH (06:00)
[2016-07-16] MEDS: GABAPENTIN 300 MG CAP PO SCH (07:04)
[2016-07-16 07:05] LABS: BUN/Creatinine Ratio 13.3; Potassium 4.3 mmol/L (3.5-5.1)
[2016-07-16] MEDS: cefTRIAXone 1GM/50ML D5W 50 ML IV SCH (08:14)
[2016-07-16] MEDS: InsuLIN REG 1unit/0.01ml Soln (100units/ml) SC SCH (08:21)
[2016-07-16] MEDS: glyBURIDE 2.5 MG TAB PO SCH (08:40)
[2016-07-16] MEDS: ACCU-CHEK COMFORT CURVE STRIP VI SCH (08:41)
[2016-07-16 09:00] VITALS: BP 136/85
[2016-07-16] MEDS: LISINOPRIL 20 MG TAB PO SCH (09:45)
[2016-07-16] MEDS: MULTIPLE VITAMIN TAB PO SCH (09:45)
[2016-07-16 11:05] VITALS: BP 136/85
[2016-07-16 13:00] VITALS: BP 157/85
== END 2016-07-16 13:15 | disposition home or self-care (01) | DRG 463 ==
LOC: ER 07:12 → OVERFLOW 07:13 → EAST 11:56 → WEST WING 15:00
PROVIDERS: ADMIT Internal Medicine; ATTEND Internal Medicine
DX: N10 Acute pyelonephritis (principal); E44.0 Moderate protein-calorie malnutrition; E11.21 Type 2 diabetes mellitus with diabetic nephropathy; D63.8 Anemia in other chronic diseases classified elsewhere; M19.90 Unspecified osteoarthritis, unspecified site; I12.9 Hypertensive chronic kidney disease with stage 1 through stage 4 chronic kidney disease, or unspecified chronic kidney disease; N18.2 Chronic kidney disease, stage 2 (mild); E78.5 Hyperlipidemia, unspecified; G89.29 Other chronic pain; N39.0 Urinary tract infection, site not specified; E11.22 Type 2 diabetes mellitus with diabetic chronic kidney disease; F17.210 Nicotine dependence, cigarettes, uncomplicated; N18.9 Chronic kidney disease, unspecified; Z59.0 Homelessness; Z83.3 Family history of diabetes mellitus; Z87.440 Personal history of urinary (tract) infections; Z86.2 Personal history of diseases of the blood and blood-forming organs and certain disorders involving the immune mechanism; Z91.19 Patient's noncompliance with other medical treatment and regimen; Z71.89 Other specified counseling
CPT/HCPCS: 36415; 74176; 76775; 80048; 80053; 81001; 82150; 82962; 83036; 83690; 85025; 85610; 85730; 87040; 87086; 96361; 96365; 96375; G0434; J0696; J1815; J1885; J2405

== ENCOUNTER 2016-07-18 17:28 | Emergency (ER) | payer MEDICAID ==
[~2016-07-18] VITALS: Ht 180.3 cm; Wt 95.3 kg
[~2016-07-18 17:28] MED LIST: GAB300C PO; GLYB2.5T76 PO; LOVA10TA54 PO; METF-316 PO; PERCOT PO
[2016-07-18 19:49] VITALS: BP 146/95
[2016-07-18] MEDS ORDERED: cefTRIAXone SOD 1,000 MG VL IM ONE (20:00)
[2016-07-18] MEDS ORDERED: PHENAZOPYRIDINE HCL 100 MG TAB PO ONE (20:00)
== END 2016-07-18 20:12 | disposition home or self-care (01) ==
LOC: ER 17:29
DX: N39.0 Urinary tract infection, site not specified (principal); M19.90 Unspecified osteoarthritis, unspecified site; I12.9 Hypertensive chronic kidney disease with stage 1 through stage 4 chronic kidney disease, or unspecified chronic kidney disease; N18.9 Chronic kidney disease, unspecified; F17.210 Nicotine dependence, cigarettes, uncomplicated; Z59.0 Homelessness
CPT/HCPCS: 81002; 96372; 99283; J0696

== ENCOUNTER 2016-07-19 06:25 | Inpatient (IN) | payer MEDICAID ==
[~2016-07-19] VITALS: Ht 180.3 cm; Wt 96.6 kg
[2016-07-19] MEDS ORDERED: MORPHINE SULFATE 4 MG/ML SYRG IV ONE (10:30)
[2016-07-19] MEDS ORDERED: SODIUM CHLORIDE 0.9% 1,000 ML IV ONE (10:30)
[2016-07-19] MEDS ORDERED: ONDANSETRON HCL 4 MG/2 ML VIAL IV ONE (10:30)
[2016-07-19 11:00] LABS: Basophils # (auto) 0.1 uL; Basophils % (auto) 1.1 % (0.0-2.0); Eosinophils # (auto) 0.4 uL; Eosinophils % (auto) 5.5 % (0.0-7.0); Hematocrit 39.3 % (41.0-53.0); Hemoglobin 13.5 g/dL (13.5-17.5); Lymphocytes # (auto) 2.2 uL; Lymphocytes % (auto) 27.2 % (10.0-50.0); Mean Corpuscular Hemoglobin 28.3 pg (28.0-32.0); Mean Corpuscular Hgb Conc. 34.4 g/dL (32.0-36.0); Mean Corpuscular Volume 82.3 fL (80.0-100.0); Mean Platelet Volume 8.4 fL (7.4-10.4); Monocytes # (auto) 0.5 uL; Monocytes % (auto) 6.5 % (0.0-12.0); Neutrophils # (auto) 4.8 uL; Neutrophils % (auto) 59.7 % (37.0-80.0); Platelet Count (auto) 323 10^3/uL (140-450); Red Cell Distribution Width 13.5 % (11.6-16.0)
[2016-07-19 11:18] LABS: Urine Blood Negative /uL (Negative); Urine Glucose Normal (Normal); Urine Ketone Negative (Negative); Urine RBC 1 /hpf (0 - 3); Urine Squamous Epithelial Cell FEW /hpf (<5)
[2016-07-19 11:25] LABS: Albumin 3.6 g/dL (3.4-5.0); Bilirubin, Total 0.4 mg/dL (0.2-1.0); Calcium 9.1 mg/dL (8.5-10.1); Potassium 4.1 mmol/L (3.5-5.1); Total Protein 7.3 g/dL (6.4-8.2)
[2016-07-19 11:30] LABS: Urine Nitrite POSITIVE (Negative)
[2016-07-19 11:31] LABS: Urine Bilirubin Negative (Negative); Urine Color Yellow (Yellow)
[2016-07-19] MEDS ORDERED: TEMAZEPAM 15 MG CAP PO PRN (13:00)
[2016-07-19] MEDS ORDERED: MORPHINE SULF INJ 2 MG/ML SYRINGE 1ML IV PRN (13:00)
[2016-07-19] MEDS ORDERED: ACETAMINOPHEN 500 MG TAB PO PRN (13:00)
[2016-07-19] MEDS ORDERED: DEXTROSE (50%) 50ML SYRG IV PRN (13:00)
[2016-07-19] MEDS ORDERED: HYDROcodone-ACET 5/325MG TAB PO PRN (13:00)
[2016-07-19] MEDS ORDERED: cefTRIAXone 1GM/50ML D5W 50 ML IV ONE ×2 (13:00)
[2016-07-19] MEDS ORDERED: NITROGLYCERIN 0.4 MG SL TAB SL PRN (13:00)
[2016-07-19] MEDS ORDERED: PROMETHAZINE HCL 25 MG/ML 1ML IV PRN (13:00)
[2016-07-19] MEDS ORDERED: LORazepam 0.5 MG TAB PO PRN (13:00)
[2016-07-19] MEDS: SODIUM CHLORIDE 0.9% 1,000 ML IV SCH ×2 (13:10→16:52)
[2016-07-19] MEDS ORDERED: FAMOTIDINE 20 MG TAB PO SCH (13:15)
[2016-07-19] MEDS ORDERED: FAMOTIDINE 20 MG TAB PO ONE (13:15)
[2016-07-19 14:10] VITALS: BP 138/96
[2016-07-19 14:32] VITALS: BP 138/96
[2016-07-19] MEDS: MORPHINE SULF INJ 2 MG/ML SYRINGE 1ML IV PRN ×2 (15:30→21:09)
[2016-07-19 16:45] VITALS: BP 145/88
[2016-07-19] MEDS: ACCU-CHEK COMFORT CURVE STRIP VI SCH ×2 (17:52→21:31)
[2016-07-19] MEDS: InsuLIN REG 1unit/0.01ml Soln (100units/ml) SC SCH ×2 (18:05→21:31)
[2016-07-19] MEDS: FAMOTIDINE 20 MG TAB PO SCH (21:30)
[2016-07-19 22:18] VITALS: BP 138/82
[2016-07-20] MEDS: MORPHINE SULF INJ 2 MG/ML SYRINGE 1ML IV PRN ×4 (04:47→20:04)
[2016-07-20 04:51] VITALS: BP 144/92
[2016-07-20 06:28] LABS: Basophils # (auto) 0.1 uL; Basophils % (auto) 0.9 % (0.0-2.0); Eosinophils # (auto) 0.5 uL; Hemoglobin 12.2 g/dL (13.5-17.5); Lymphocytes # (auto) 2.1 uL; Lymphocytes % (auto) 30.5 % (10.0-50.0); Mean Corpuscular Hemoglobin 28.1 pg (28.0-32.0); Mean Corpuscular Volume 82.5 fL (80.0-100.0); Mean Platelet Volume 9.6 fL (7.4-10.4); Monocytes # (auto) 0.5 uL; Monocytes % (auto) 7.1 % (0.0-12.0); Neutrophils # (auto) 3.7 uL; Neutrophils % (auto) 54.5 % (37.0-80.0); Platelet Count (auto) 278 10^3/uL (140-450); Red Cell Distribution Width 13.6 % (11.6-16.0); White Blood Cell 6.9 10^3/uL (4.4-10.8)
[2016-07-20] MEDS: InsuLIN REG 1unit/0.01ml Soln (100units/ml) SC SCH ×4 (06:30→21:12)
[2016-07-20] MEDS: ACCU-CHEK COMFORT CURVE STRIP VI SCH ×4 (06:30→21:15)
[2016-07-20 06:51] LABS: Potassium 3.7 mmol/L (3.5-5.1)
[2016-07-20 07:07] LABS: Albumin 3.2 g/dL (3.4-5.0); BUN/Creatinine Ratio 11.5; Calcium 8.2 mg/dL (8.5-10.1)
[2016-07-20 07:15] LABS: Bilirubin, Total 0.2 mg/dL (0.2-1.0); Total Protein 6.5 g/dL (6.4-8.2)
[2016-07-20 08:37] VITALS: BP 156/90
[2016-07-20] MEDS: SODIUM CHLORIDE 0.9% 1,000 ML IV SCH ×2 (08:49→19:51)
[2016-07-20] MEDS: cefTRIAXone 1GM/50ML D5W 50 ML IV SCH (08:49)
[2016-07-20] MEDS: FAMOTIDINE 20 MG TAB PO SCH ×2 (09:34→21:12)
[2016-07-20 14:29] VITALS: BP 167/98
[2016-07-20 15:20] LABS: Basophils # (auto) 0.1 uL; Basophils % (auto) 0.9 % (0.0-2.0); Eosinophils # (auto) 0.5 uL; Eosinophils % (auto) 6.3 % (0.0-7.0); Hematocrit 36.4 % (41.0-53.0); Hemoglobin 12.4 g/dL (13.5-17.5); Lymphocytes # (auto) 2.1 uL; Lymphocytes % (auto) 29.1 % (10.0-50.0); Mean Corpuscular Hemoglobin 28.5 pg (28.0-32.0); Mean Platelet Volume 8.7 fL (7.4-10.4); Monocytes # (auto) 0.5 uL; Monocytes % (auto) 7.4 % (0.0-12.0); Neutrophils # (auto) 4.1 uL; Neutrophils % (auto) 56.3 % (37.0-80.0); Platelet Count (auto) 280 10^3/uL (140-450); Red Cell Distribution Width 13.2 % (11.6-16.0); White Blood Cell 7.2 10^3/uL (4.4-10.8)
[2016-07-20 15:35] LABS: Albumin 3.3 g/dL (3.4-5.0); BUN/Creatinine Ratio 11.1
[2016-07-20 15:38] LABS: Bilirubin, Total 0.4 mg/dL (0.2-1.0); Total Protein 6.6 g/dL (6.4-8.2)
[2016-07-20 16:35] VITALS: BP 155/91
[2016-07-20 22:00] VITALS: BP 156/86
[2016-07-21] MEDS: MORPHINE SULF INJ 2 MG/ML SYRINGE 1ML IV PRN ×5 (04:28→21:15)
[2016-07-21] MEDS: SODIUM CHLORIDE 0.9% 1,000 ML IV SCH ×2 (04:49→16:48)
[2016-07-21 05:00] VITALS: BP 188/99
[2016-07-21] MEDS: InsuLIN REG 1unit/0.01ml Soln (100units/ml) SC SCH ×4 (06:43→21:25)
[2016-07-21] MEDS: ACCU-CHEK COMFORT CURVE STRIP VI SCH ×4 (06:44→17:12)
[2016-07-21] MEDS: cefTRIAXone 1GM/50ML D5W 50 ML IV SCH (08:39)
[2016-07-21 09:00] VITALS: BP 162/100
[2016-07-21] MEDS: FAMOTIDINE 20 MG TAB PO SCH ×2 (10:00→21:15)
[2016-07-21 12:55] VITALS: BP 138/103
[2016-07-21] MEDS ORDERED: METOPROLOL TARTRATE 25 MG TAB PO ONE (13:30)
[2016-07-21 16:42] VITALS: BP 160/99
[2016-07-21] MEDS: METOPROLOL TARTRATE 25 MG TAB PO SCH (21:15)
[2016-07-21 22:00] VITALS: BP 164/94
[2016-07-22] MEDS: SODIUM CHLORIDE 0.9% 1,000 ML IV SCH ×2 (00:58→09:04)
[2016-07-22] MEDS: MORPHINE SULF INJ 2 MG/ML SYRINGE 1ML IV PRN ×2 (02:25→06:31)
[2016-07-22 05:00] VITALS: BP 173/94
[2016-07-22 05:30] VITALS: BP 166/98
[2016-07-22] MEDS: InsuLIN REG 1unit/0.01ml Soln (100units/ml) SC SCH (06:04)
[2016-07-22] MEDS: ACCU-CHEK COMFORT CURVE STRIP VI SCH (06:05)
[2016-07-22 06:15] LABS: BUN/Creatinine Ratio 12.1; Calcium 8.6 mg/dL (8.5-10.1); Potassium 3.9 mmol/L (3.5-5.1)
[2016-07-22 09:00] VITALS: BP 179/104
[2016-07-22] MEDS: cefTRIAXone 1GM/50ML D5W 50 ML IV SCH (09:03)
[2016-07-22] MEDS: FAMOTIDINE 20 MG TAB PO SCH (09:03)
[2016-07-22] MEDS: METOPROLOL TARTRATE 25 MG TAB PO SCH (09:04)
[2016-07-22 12:02] VITALS: BP 136/98
[2016-07-22 13:00] VITALS: BP 156/97
== END 2016-07-22 13:32 | disposition home or self-care (01) | DRG 463 ==
LOC: ER 06:28 → TELE 06:29 → TELE-WESTW 14:11
PROVIDERS: ADMIT Internal Medicine; ATTEND Internal Medicine
DX: N12 Tubulo-interstitial nephritis, not specified as acute or chronic (principal); E11.21 Type 2 diabetes mellitus with diabetic nephropathy; N18.3 Chronic kidney disease, stage 3 (moderate); M54.9 Dorsalgia, unspecified; I12.9 Hypertensive chronic kidney disease with stage 1 through stage 4 chronic kidney disease, or unspecified chronic kidney disease; F12.90 Cannabis use, unspecified, uncomplicated; F15.90 Other stimulant use, unspecified, uncomplicated; K57.90 Diverticulosis of intestine, part unspecified, without perforation or abscess without bleeding; Z59.0 Homelessness; E11.22 Type 2 diabetes mellitus with diabetic chronic kidney disease; E44.1 Mild protein-calorie malnutrition; Z68.29 Body mass index [BMI] 29.0-29.9, adult; F17.210 Nicotine dependence, cigarettes, uncomplicated; M19.90 Unspecified osteoarthritis, unspecified site; Z60.2 Problems related to living alone; Z86.2 Personal history of diseases of the blood and blood-forming organs and certain disorders involving the immune mechanism; Z82.3 Family history of stroke; Z80.9 Family history of malignant neoplasm, unspecified
CPT/HCPCS: 36415; 74176; 80048; 80053; 81001; 82962; 83036; 85025; 85652; 86141; 87040; 87081; 87086; 96374; 96375; J0696; J1815; J2405

== ENCOUNTER 2016-08-26 05:59 | Observation (INO) | payer MEDICAID, OTHER ==
[~2016-08-26] VITALS: Ht 177.8 cm; Wt 90.7 kg
[2016-08-26] MEDS ORDERED: SODIUM CHLORIDE 0.9% 1,000 ML IVB ONE (06:42)
[2016-08-26] MEDS ORDERED: KETOROLAC TROMETH 30 MG/ML 1ML VIAL IV ONE (06:45)
[2016-08-26] MEDS ORDERED: METOCLOPRAMIDE HCL 5MG/ml INJ 2ml VIAL IV ONE (06:45)
[2016-08-26] MEDS ORDERED: LABETALOL HCL 5 MG/ML 4ML SYRINGE IV ONE (06:45)
[2016-08-26 07:57] LABS: Basophils # (auto) 0.1 uL; Basophils % (auto) 0.8 % (0.0-2.0); Eosinophils # (auto) 0.3 uL; Eosinophils % (auto) 3.5 % (0.0-7.0); Hematocrit 35.9 % (41.0-53.0); Hemoglobin 12.3 g/dL (13.5-17.5); Lymphocytes # (auto) 2.1 uL; Lymphocytes % (auto) 26.6 % (10.0-50.0); Mean Corpuscular Hgb Conc. 34.3 g/dL (32.0-36.0); Mean Corpuscular Volume 84.3 fL (80.0-100.0); Mean Platelet Volume 8.6 fL (7.4-10.4); Monocytes # (auto) 0.5 uL; Monocytes % (auto) 6.5 % (0.0-12.0); Neutrophils # (auto) 4.9 uL; Neutrophils % (auto) 62.6 % (37.0-80.0); Platelet Count (auto) 267 10^3/uL (140-450); Red Cell Distribution Width 14.4 % (11.6-16.0); White Blood Cell 7.8 10^3/uL (4.4-10.8)
[2016-08-26 08:24] LABS: Albumin 3.2 g/dL (3.4-5.0); BUN/Creatinine Ratio 9.8; Bilirubin, Total 0.4 mg/dL (0.2-1.0); Calcium 8.2 mg/dL (8.5-10.1); Magnesium 2.2 mg/dL (1.6-2.6); Potassium 3.5 mmol/L (3.5-5.1); Total Protein 6.9 g/dL (6.4-8.2)
[2016-08-26 08:47] LABS: INR 0.99 (0.9-1.15); Partial Thromboplastin Time 25.4 sec (22.64-33.71); Prothrombin Time 10.7 sec (9.37-12.3)
[2016-08-26 09:37] VITALS: BP 147/79
== END 2016-08-26 11:14 | disposition home or self-care (01) | DRG 251 ==
LOC: ER 06:06 → EDUNIT# 06:06 → OVERFLOW 06:45 → ER 11:14
PROVIDERS: ADMIT Emergency Medicine; ATTEND Emergency Medicine
DX: R10.11 Right upper quadrant pain (principal); E11.21 Type 2 diabetes mellitus with diabetic nephropathy; M54.5 Low back pain; I10 Essential (primary) hypertension; E44.1 Mild protein-calorie malnutrition; F12.10 Cannabis abuse, uncomplicated; F15.10 Other stimulant abuse, uncomplicated
CPT/HCPCS: 36415; 71020; 76705; 80053; 82150; 83690; 83735; 84443; 84484; 85025; 85610; 85730; 93005; 96361; 96374; 96375; 99285; G0378; J1885; J2765; J3490; J7030

== ENCOUNTER 2016-08-28 16:33 | Emergency (ER) | payer MEDICAID ==
[~2016-08-28] VITALS: Ht 180.3 cm; Wt 93.0 kg
[2016-08-28 16:50] VITALS: BP 189/88
[2016-08-28 17:44] LABS: Basophils # (auto) 0.2 uL; Basophils % (auto) 1.7 % (0.0-2.0); Eosinophils # (auto) 0.2 uL; Eosinophils % (auto) 1.9 % (0.0-7.0); Hematocrit 37.9 % (41.0-53.0); Hemoglobin 12.9 g/dL (13.5-17.5); Lymphocytes # (auto) 1.8 uL; Lymphocytes % (auto) 18.3 % (10.0-50.0); Mean Corpuscular Hemoglobin 29.1 pg (28.0-32.0); Mean Corpuscular Hgb Conc. 34.1 g/dL (32.0-36.0); Mean Corpuscular Volume 85.4 fL (80.0-100.0); Mean Platelet Volume 9.3 fL (7.4-10.4); Monocytes # (auto) 0.6 uL; Monocytes % (auto) 6.5 % (0.0-12.0); Neutrophils # (auto) 7.1 uL; Neutrophils % (auto) 71.6 % (37.0-80.0); Platelet Count (auto) 301 10^3/uL (140-450); Red Cell Distribution Width 15.3 % (11.6-16.0); White Blood Cell 9.9 10^3/uL (4.4-10.8)
[2016-08-28 18:30] LABS: Albumin 3.5 g/dL (3.4-5.0); Bilirubin, Total 0.4 mg/dL (0.2-1.0); Calcium 8.2 mg/dL (8.5-10.1); Potassium 3.5 mmol/L (3.5-5.1)
[2016-08-29] MEDS ORDERED: cloNIDine HCL 0.1 MG TAB ONE (03:51)
== END 2016-08-28 23:57 | disposition left against medical advice (07) ==
LOC: ER 16:41 → EDUNIT# 16:41 → ER 23:57
DX: R10.9 Unspecified abdominal pain (principal); R11.10 Vomiting, unspecified; R19.7 Diarrhea, unspecified; Z53.21 Procedure and treatment not carried out due to patient leaving prior to being seen by health care provider
CPT/HCPCS: 36415; 80053; 84484; 85025; 93005

== ENCOUNTER 2016-08-29 03:03 | Inpatient (IN) | payer MEDICAID ==
[~2016-08-29] VITALS: Ht 180.3 cm; Wt 98.1 kg
[2016-08-29] MEDS ORDERED: cloNIDine HCL 0.1 MG TAB PO ONE (04:00)
[2016-08-29] MEDS ORDERED: ALBUTEROL SULF 2.5 MG/0.5ML(0.5%) NEB SOLN NEB STA (04:06)
[2016-08-29] MEDS ORDERED: IPRATROPIUM BROM 0.5 MG/2.5ML INH SOL NEB ONE (04:15)
[2016-08-29 04:18] LABS: Basophils # (auto) 0 uL; Basophils % (auto) 0.4 % (0.0-2.0); Eosinophils # (auto) 0.3 uL; Eosinophils % (auto) 2.3 % (0.0-7.0); Hematocrit 41.2 % (41.0-53.0); Lymphocytes # (auto) 1.3 uL; Lymphocytes % (auto) 10.6 % (10.0-50.0); Mean Corpuscular Hemoglobin 29.2 pg (28.0-32.0); Mean Corpuscular Volume 85.8 fL (80.0-100.0); Mean Platelet Volume 8.6 fL (7.4-10.4); Monocytes # (auto) 0.8 uL; Monocytes % (auto) 6.2 % (0.0-12.0); Neutrophils # (auto) 9.9 uL; Neutrophils % (auto) 80.5 % (37.0-80.0); Platelet Count (auto) 289 10^3/uL (140-450); Red Cell Distribution Width 15.4 % (11.6-16.0); White Blood Cell 12.3 10^3/uL (4.4-10.8)
[2016-08-29 04:38] LABS: INR 1.03 (0.9-1.15); Partial Thromboplastin Time 24.8 sec (22.64-33.71); Prothrombin Time 11.1 sec (9.37-12.3)
[2016-08-29 04:58] LABS: Albumin 3.7 g/dL (3.4-5.0); BUN/Creatinine Ratio 9.1; Calcium 8.4 mg/dL (8.5-10.1); Potassium 4.1 mmol/L (3.5-5.1)
[2016-08-29 05:01] LABS: Bilirubin, Total 0.7 mg/dL (0.2-1.0); Total Protein 7.5 g/dL (6.4-8.2)
[2016-08-29 05:12] LABS: Temperature: 21.2 C (20.0-25.0)
[2016-08-29] MEDS ORDERED: MORPHINE SULFATE 4 MG/ML SYRG IV ONE (08:15)
[2016-08-29] MEDS ORDERED: ONDANSETRON HCL 4 MG/2 ML VIAL IV ONE (08:15)
[2016-08-29] MEDS: SODIUM CHLORIDE 0.9% 1,000 ML IV SCH ×2 (09:44→18:23)
[2016-08-29] MEDS ORDERED: ALBUTEROL SULF 2.5 MG/0.5ML(0.5%) NEB SOLN NEB PRN (09:45)
[2016-08-29] MEDS ORDERED: DEXTROSE (50%) 50ML SYRG IV PRN (09:45)
[2016-08-29] MEDS ORDERED: MORPHINE SULF INJ 2 MG/ML SYRINGE 1ML IV PRN (09:45)
[2016-08-29] MEDS ORDERED: NITROGLYCERIN 0.4 MG SL TAB SL PRN (09:45)
[2016-08-29] MEDS: ENOXAPARIN SOD 40 MG/0.4 ML SYRINGE SC SCH (10:00)
[2016-08-29] MEDS ORDERED: PANTOPRAZOLE SODIUM 40 MG/10 ML VIAL IV ONE (10:00)
[2016-08-29] MEDS: PANTOPRAZOLE SODIUM 40 MG/10 ML VIAL IV SCH (10:00)
[2016-08-29] MEDS ORDERED: cefTRIAXone 1GM/50ML D5W 50 ML IV ONE (10:00)
[2016-08-29] MEDS: ALBUTEROL SULF 2.5 MG/0.5ML(0.5%) NEB SOLN NEB SCH ×2 (11:53→19:37)
[2016-08-29] MEDS: metroNIDAZOLE 500MG/100ML 100 ML IV SCH ×2 (12:08→18:22)
[2016-08-29] MEDS: ACCU-CHEK COMFORT CURVE STRIP VI SCH ×2 (12:08→18:23)
[2016-08-29] MEDS: InsuLIN REG 1unit/0.01ml Soln (100units/ml) SC SCH ×2 (12:19→19:44)
[2016-08-29 14:10] VITALS: BP 142/90
[2016-08-29 16:54] VITALS: BP 142/83
[2016-08-29] MEDS: ONDANSETRON HCL 4 MG/2 ML VIAL IV PRN (20:53)
[2016-08-29] MEDS: MORPHINE SULFATE 4 MG/ML SYRG IV PRN (20:53)
[2016-08-29 21:13] VITALS: BP 142/83
[2016-08-29 22:00] VITALS: BP 123/76
[2016-08-30] MEDS: metroNIDAZOLE 500MG/100ML 100 ML IV SCH ×4 (00:49→18:25)
[2016-08-30] MEDS: ALBUTEROL SULF 2.5 MG/0.5ML(0.5%) NEB SOLN NEB SCH ×4 (02:00→19:10)
[2016-08-30] MEDS: MORPHINE SULFATE 4 MG/ML SYRG IV PRN ×3 (03:14→17:14)
[2016-08-30] MEDS: ONDANSETRON HCL 4 MG/2 ML VIAL IV PRN ×2 (03:15→10:19)
[2016-08-30] MEDS: SODIUM CHLORIDE 0.9% 1,000 ML IV SCH ×3 (03:15→12:24)
[2016-08-30 05:00] VITALS: BP 135/70
[2016-08-30 05:39] LABS: Basophils # (auto) 0 uL; Basophils % (auto) 0.6 % (0.0-2.0); Eosinophils # (auto) 0.3 uL; Eosinophils % (auto) 4.3 % (0.0-7.0); Hematocrit 33.3 % (41.0-53.0); Hemoglobin 11.2 g/dL (13.5-17.5); Lymphocytes # (auto) 1.8 uL; Mean Corpuscular Hemoglobin 29.1 pg (28.0-32.0); Mean Corpuscular Hgb Conc. 33.5 g/dL (32.0-36.0); Mean Corpuscular Volume 86.8 fL (80.0-100.0); Mean Platelet Volume 8.7 fL (7.4-10.4); Monocytes # (auto) 0.5 uL; Monocytes % (auto) 7.6 % (0.0-12.0); Neutrophils % (auto) 60.5 % (37.0-80.0); Platelet Count (auto) 221 10^3/uL (140-450); Red Cell Distribution Width 15.5 % (11.6-16.0); White Blood Cell 6.6 10^3/uL (4.4-10.8)
[2016-08-30] MEDS: ACCU-CHEK COMFORT CURVE STRIP VI SCH ×4 (06:04→17:57)
[2016-08-30] MEDS: InsuLIN REG 1unit/0.01ml Soln (100units/ml) SC SCH ×4 (06:06→17:58)
[2016-08-30 06:27] LABS: Albumin 2.9 g/dL (3.4-5.0); BUN/Creatinine Ratio 11.5; Bilirubin, Total 0.5 mg/dL (0.2-1.0); Calcium 8.1 mg/dL (8.5-10.1); Potassium 4.3 mmol/L (3.5-5.1); Total Protein 6.1 g/dL (6.4-8.2)
[2016-08-30 07:06] VITALS: BP 137/91
[2016-08-30] MEDS: cefTRIAXone 1GM/50ML D5W 50 ML IV SCH (09:24)
[2016-08-30] MEDS: ENOXAPARIN SOD 40 MG/0.4 ML SYRINGE SC SCH (09:24)
[2016-08-30] MEDS: PANTOPRAZOLE SODIUM 40 MG/10 ML VIAL IV SCH (09:24)
[2016-08-30 09:37] LABS: Urine Bilirubin Negative (Negative); Urine Blood Negative /uL (Negative); Urine Color Yellow (Yellow); Urine Glucose Normal (Normal); Urine Ketone Negative (Negative); Urine Nitrite Negative (Negative); Urine RBC 1 /hpf (0 - 3); Urine Squamous Epithelial Cell FEW /hpf (<5); Urine Urobilinogen Normal (Negative)
[2016-08-30 11:51] VITALS: BP 139/91
[2016-08-30 16:44] VITALS: BP 153/95
[2016-08-30 22:07] VITALS: BP 152/95
[2016-08-31] MEDS: MORPHINE SULFATE 4 MG/ML SYRG IV PRN ×2 (00:09→05:56)
[2016-08-31] MEDS: ONDANSETRON HCL 4 MG/2 ML VIAL IV PRN ×2 (00:09→05:57)
[2016-08-31] MEDS: metroNIDAZOLE 500MG/100ML 100 ML IV SCH ×3 (00:09→12:20)
[2016-08-31] MEDS: ALBUTEROL SULF 2.5 MG/0.5ML(0.5%) NEB SOLN NEB SCH ×2 (00:45→07:59)
[2016-08-31 05:08] VITALS: BP 160/90
[2016-08-31] MEDS: SODIUM CHLORIDE 0.9% 1,000 ML IV SCH ×2 (05:58→08:47)
[2016-08-31] MEDS: ACCU-CHEK COMFORT CURVE STRIP VI SCH ×3 (05:59→12:24)
[2016-08-31] MEDS: InsuLIN REG 1unit/0.01ml Soln (100units/ml) SC SCH ×3 (06:00→12:24)
[2016-08-31 09:19] VITALS: BP 155/96
[2016-08-31] MEDS: cefTRIAXone 1GM/50ML D5W 50 ML IV SCH (10:24)
[2016-08-31] MEDS: PANTOPRAZOLE SODIUM 40 MG/10 ML VIAL IV SCH (10:24)
[2016-08-31] MEDS: ENOXAPARIN SOD 40 MG/0.4 ML SYRINGE SC SCH (10:24)
[2016-08-31 10:34] VITALS: BP 155/96
[2016-08-31 12:41] VITALS: BP 150/94
== END 2016-08-31 13:22 | disposition home or self-care (01) | DRG 282 ==
LOC: ER 03:05 → EDUNIT# 03:06 → TELE 03:06 → TELE-WESTW 14:10
PROVIDERS: ADMIT Internal Medicine; ATTEND Internal Medicine
DX: K85.90 Acute pancreatitis without necrosis or infection, unspecified (principal); J18.9 Pneumonia, unspecified organism; E11.22 Type 2 diabetes mellitus with diabetic chronic kidney disease; E78.5 Hyperlipidemia, unspecified; N18.9 Chronic kidney disease, unspecified; I12.9 Hypertensive chronic kidney disease with stage 1 through stage 4 chronic kidney disease, or unspecified chronic kidney disease; F17.210 Nicotine dependence, cigarettes, uncomplicated; Z59.0 Homelessness; Z82.49 Family history of ischemic heart disease and other diseases of the circulatory system; Z83.3 Family history of diabetes mellitus; K57.90 Diverticulosis of intestine, part unspecified, without perforation or abscess without bleeding; E78.00 Pure hypercholesterolemia, unspecified
CPT/HCPCS: 36415; 71010; 74176; 80053; 80061; 81001; 82150; 82962; 83036; 83690; 83880; 84484; 85025; 85610; 85652; 85730; 86141; 87040; 87070; 87081; 87086; 87205; 93005; 94640; 94761; 96365; 96375; C9113; J0696; J1815; J2405; J3490

== ENCOUNTER 2016-09-02 07:19 | Inpatient (IN) | payer MEDICAID ==
[~2016-09-02] VITALS: Ht 180.3 cm; Wt 97.6 kg
[2016-09-02] MEDS ORDERED: SODIUM CHLORIDE 0.9% 1,000 ML IVB ONE (08:21)
[2016-09-02 09:25] LABS: Basophils # (auto) 0.1 uL; Basophils % (auto) 0.9 % (0.0-2.0); Eosinophils # (auto) 0.2 uL; Eosinophils % (auto) 2.8 % (0.0-7.0); Hematocrit 36.1 % (41.0-53.0); Hemoglobin 12.4 g/dL (13.5-17.5); Lymphocytes # (auto) 1.1 uL; Lymphocytes % (auto) 16.1 % (10.0-50.0); Mean Corpuscular Hemoglobin 29.8 pg (28.0-32.0); Mean Corpuscular Hgb Conc. 34.4 g/dL (32.0-36.0); Mean Corpuscular Volume 86.4 fL (80.0-100.0); Mean Platelet Volume 8.9 fL (7.4-10.4); Monocytes # (auto) 0.2 uL; Monocytes % (auto) 3.6 % (0.0-12.0); Neutrophils # (auto) 5.2 uL; Neutrophils % (auto) 76.6 % (37.0-80.0); Platelet Count (auto) 266 10^3/uL (140-450); Red Cell Distribution Width 15.7 % (11.6-16.0); White Blood Cell 6.8 10^3/uL (4.4-10.8)
[2016-09-02 09:44] LABS: BUN/Creatinine Ratio 11.1; Calcium 8.4 mg/dL (8.5-10.1); Potassium 4.6 mmol/L (3.5-5.1)
[2016-09-02 09:48] LABS: Bilirubin, Total 0.4 mg/dL (0.2-1.0); Total Protein 6.9 g/dL (6.4-8.2)
[2016-09-02 09:56] LABS: Urine RBC None Seen /hpf (0 - 3)
[2016-09-02 10:18] LABS: Urine Bilirubin Negative (Negative); Urine Blood Negative /uL (Negative); Urine Color Yellow (Yellow); Urine Ketone Negative (Negative); Urine Nitrite Negative (Negative); Urine Squamous Epithelial Cell FEW /hpf (<5); Urine Urobilinogen Normal (Negative); Urine pH 6.5 (5.0-8.0)
[2016-09-02 10:22] LABS: Urine Glucose 1+ mg/dL (Normal)
[2016-09-02] MEDS ORDERED: cefTRIAXone 1GM/50ML D5W 50 ML IV ONE (13:15)
[2016-09-02] MEDS ORDERED: SODIUM CHLORIDE 0.9% 1,000 ML IV SCH (15:48)
[2016-09-02] MEDS ORDERED: DEXTROSE (50%) 50ML SYRG IV PRN (16:00)
[2016-09-02] MEDS ORDERED: ALBUTEROL SULF 2.5 MG/0.5ML(0.5%) NEB SOLN NEB PRN (16:00)
[2016-09-02] MEDS ORDERED: MORPHINE SULF INJ 2 MG/ML SYRINGE 1ML IV PRN (16:00)
[2016-09-02] MEDS ORDERED: LACTULOSE 20Gm/30ML SOLN PO PRN (16:00)
[2016-09-02] MEDS ORDERED: NITROGLYCERIN 0.4 MG SL TAB SL PRN (16:00)
[2016-09-02] MEDS ORDERED: ENOXAPARIN SOD 30 MG/0.3 ML SYRINGE SC SCH (16:01)
[2016-09-02] MEDS ORDERED: AZITHROMYCIN 500MG/D5W 250ML 250 ML IV ONE (16:15)
[2016-09-02] MEDS: ENOXAPARIN SOD 40 MG/0.4 ML SYRINGE SC SCH (16:42)
[2016-09-02] MEDS: FAMOTIDINE 20 MG TAB PO SCH (16:42)
[2016-09-02] MEDS: ACCU-CHEK COMFORT CURVE STRIP VI SCH ×2 (17:08→22:06)
[2016-09-02] MEDS: InsuLIN REG 1unit/0.01ml Soln (100units/ml) SC SCH ×2 (17:11→22:07)
[2016-09-02 17:22] LABS: B-Type Natriuretic Peptide 1072.52 pg/mL (0-100); Temperature: 23.4 C (20.0-25.0)
[2016-09-02 20:00] VITALS: BP 167/117
[2016-09-02] MEDS: CARVEDILOL 3.125 MG TAB PO SCH (20:46)
[2016-09-02] MEDS: GABAPENTIN 300 MG CAP PO SCH (20:46)
[2016-09-02] MEDS: LISINOPRIL 20 MG TAB PO SCH (20:47)
[2016-09-02 21:01] VITALS: BP 167/117
[2016-09-02] MEDS ORDERED: FAMOTIDINE 20 MG TAB PO SCH (22:00)
[2016-09-02] MEDS ORDERED: PATIENTS OWN MEDICATION (Lisinopril 1 TAB) PO SCH (22:00)
[2016-09-03] MEDS: ALBUTEROL SULF 2.5 MG/0.5ML(0.5%) NEB SOLN NEB SCH ×4 (01:08→18:30)
[2016-09-03] MEDS: IPRATROPIUM BROM 0.5 MG/2.5ML INH SOL NEB SCH ×4 (01:08→18:30)
[2016-09-03 04:55] VITALS: BP 163/102
[2016-09-03 05:29] LABS: Basophils # (auto) 0.1 uL; Basophils % (auto) 0.8 % (0.0-2.0); Eosinophils # (auto) 0.3 uL; Eosinophils % (auto) 4.6 % (0.0-7.0); Hematocrit 36.2 % (41.0-53.0); Hemoglobin 12.3 g/dL (13.5-17.5); Lymphocytes # (auto) 1.9 uL; Lymphocytes % (auto) 25.1 % (10.0-50.0); Mean Corpuscular Hemoglobin 29.7 pg (28.0-32.0); Mean Corpuscular Hgb Conc. 33.9 g/dL (32.0-36.0); Mean Corpuscular Volume 87.6 fL (80.0-100.0); Mean Platelet Volume 9.2 fL (7.4-10.4); Monocytes # (auto) 0.5 uL; Monocytes % (auto) 7.3 % (0.0-12.0); Neutrophils # (auto) 4.7 uL; Neutrophils % (auto) 62.2 % (37.0-80.0); Platelet Count (auto) 268 10^3/uL (140-450); Red Cell Distribution Width 16.2 % (11.6-16.0); White Blood Cell 7.5 10^3/uL (4.4-10.8)
[2016-09-03 06:01] LABS: Albumin 2.9 g/dL (3.4-5.0); BUN/Creatinine Ratio 11.3; Bilirubin, Total 0.3 mg/dL (0.2-1.0); Calcium 8.3 mg/dL (8.5-10.1); Potassium 3.9 mmol/L (3.5-5.1); Total Protein 6.3 g/dL (6.4-8.2)
[2016-09-03] MEDS: GABAPENTIN 300 MG CAP PO SCH ×3 (06:23→22:57)
[2016-09-03] MEDS: ACCU-CHEK COMFORT CURVE STRIP VI SCH ×3 (06:24→22:58)
[2016-09-03] MEDS: InsuLIN REG 1unit/0.01ml Soln (100units/ml) SC SCH ×3 (06:24→22:59)
[2016-09-03 08:36] VITALS: BP 154/98
[2016-09-03] MEDS ORDERED: cefTRIAXone 1GM/50ML D5W 50 ML IV SCH (09:00)
[2016-09-03] MEDS: ENOXAPARIN SOD 40 MG/0.4 ML SYRINGE SC SCH (09:13)
[2016-09-03] MEDS: ASPirin 81 mg TAB PO SCH (09:14)
[2016-09-03] MEDS: FUROSEMIDE 40 MG/4 ML VIAL IV SCH (09:14)
[2016-09-03] MEDS: NITROGLYCERIN 0.2MG/HR TOPICAL PATCH TD SCH (09:15)
[2016-09-03] MEDS: CARVEDILOL 3.125 MG TAB PO SCH ×2 (09:16→22:58)
[2016-09-03] MEDS: FAMOTIDINE 20 MG TAB PO SCH (09:16)
[2016-09-03] MEDS: LISINOPRIL 20 MG TAB PO SCH ×2 (09:17→22:59)
[2016-09-03] MEDS: POTASSIUM CHL 20 Meq TABLET PO SCH (09:17)
[2016-09-03] MEDS: glyBURIDE 2.5 MG TAB PO SCH (09:24)
[2016-09-03] MEDS ORDERED: AZITHROMYCIN 500MG/D5W 250ML 250 ML IV SCH (10:00)
[2016-09-03] MEDS ORDERED: GLYBURIDE 1.25 MG PO SCH (10:00)
[2016-09-03 10:38] VITALS: BP 154/98
[2016-09-03 12:25] VITALS: BP 138/89
[2016-09-03] MEDS: SODIUM CHLORIDE 0.9% 1,000 ML IV SCH (13:57)
[2016-09-03 17:10] VITALS: BP 130/84
[2016-09-03 21:47] VITALS: BP 144/93
[2016-09-04] MEDS: SODIUM CHLORIDE 0.9% 1,000 ML IV SCH ×2 (04:25→20:53)
[2016-09-04 05:14] VITALS: BP 159/104
[2016-09-04] MEDS: GABAPENTIN 300 MG CAP PO SCH ×3 (06:00→21:34)
[2016-09-04] MEDS: ALBUTEROL SULF 2.5 MG/0.5ML(0.5%) NEB SOLN NEB SCH ×4 (06:00→18:40)
[2016-09-04] MEDS: IPRATROPIUM BROM 0.5 MG/2.5ML INH SOL NEB SCH ×4 (06:00→18:40)
[2016-09-04 06:23] LABS: Basophils # (auto) 0 uL; Basophils % (auto) 0.4 % (0.0-2.0); Eosinophils # (auto) 0.3 uL; Eosinophils % (auto) 4.6 % (0.0-7.0); Hematocrit 33.5 % (41.0-53.0); Hemoglobin 11.5 g/dL (13.5-17.5); Lymphocytes % (auto) 25.9 % (10.0-50.0); Mean Corpuscular Hemoglobin 29.8 pg (28.0-32.0); Mean Corpuscular Hgb Conc. 34.3 g/dL (32.0-36.0); Mean Corpuscular Volume 86.7 fL (80.0-100.0); Mean Platelet Volume 9.1 fL (7.4-10.4); Monocytes # (auto) 0.6 uL; Monocytes % (auto) 7.7 % (0.0-12.0); Neutrophils # (auto) 4.7 uL; Neutrophils % (auto) 61.4 % (37.0-80.0); Platelet Count (auto) 269 10^3/uL (140-450); Red Cell Distribution Width 16.6 % (11.6-16.0); White Blood Cell 7.6 10^3/uL (4.4-10.8)
[2016-09-04 06:55] LABS: Albumin 2.8 g/dL (3.4-5.0)
[2016-09-04 06:59] LABS: Bilirubin, Total 0.2 mg/dL (0.2-1.0); Total Protein 6.1 g/dL (6.4-8.2)
[2016-09-04] MEDS: InsuLIN REG 1unit/0.01ml Soln (100units/ml) SC SCH ×4 (07:00→21:35)
[2016-09-04] MEDS: ACCU-CHEK COMFORT CURVE STRIP VI SCH ×4 (07:00→21:19)
[2016-09-04 08:00] VITALS: BP 120/45
[2016-09-04] MEDS: ENOXAPARIN SOD 40 MG/0.4 ML SYRINGE SC SCH (09:36)
[2016-09-04] MEDS: FUROSEMIDE 40 MG/4 ML VIAL IV SCH (09:37)
[2016-09-04] MEDS: POTASSIUM CHL 20 Meq TABLET PO SCH (09:37)
[2016-09-04] MEDS: ASPirin 81 mg TAB PO SCH (09:37)
[2016-09-04] MEDS: glyBURIDE 2.5 MG TAB PO SCH (09:38)
[2016-09-04] MEDS: FAMOTIDINE 20 MG TAB PO SCH (09:38)
[2016-09-04] MEDS: CARVEDILOL 3.125 MG TAB PO SCH ×2 (09:39→21:34)
[2016-09-04] MEDS: LISINOPRIL 20 MG TAB PO SCH ×2 (09:39→21:34)
[2016-09-04] MEDS: NITROGLYCERIN 0.2MG/HR TOPICAL PATCH TD SCH (09:41)
[2016-09-04] MEDS ORDERED: LEVOFLOXACIN 500MG 100 ML IV SCH (10:00)
[2016-09-04 10:08] VITALS: BP 120/45
[2016-09-04 12:19] VITALS: BP 136/74
[2016-09-04 17:11] VITALS: BP 110/65
[2016-09-04 22:00] VITALS: BP 131/73
[2016-09-05 05:25] VITALS: BP 156/98
[2016-09-05] MEDS: GABAPENTIN 300 MG CAP PO SCH ×2 (06:15→13:24)
[2016-09-05] MEDS: InsuLIN REG 1unit/0.01ml Soln (100units/ml) SC SCH ×2 (06:15→11:30)
[2016-09-05] MEDS: ACCU-CHEK COMFORT CURVE STRIP VI SCH ×2 (06:15→11:30)
[2016-09-05 06:39] LABS: Calcium 8.2 mg/dL (8.5-10.1); Potassium 4.3 mmol/L (3.5-5.1)
[2016-09-05 06:45] LABS: BUN/Creatinine Ratio 12.3
[2016-09-05] MEDS: IPRATROPIUM BROM 0.5 MG/2.5ML INH SOL NEB SCH ×3 (07:13→12:38)
[2016-09-05] MEDS: ALBUTEROL SULF 2.5 MG/0.5ML(0.5%) NEB SOLN NEB SCH ×3 (07:13→12:38)
[2016-09-05] MEDS ORDERED: LEVOFLOXACIN 750MG 150 ML IV SCH ×2 (08:00→10:00)
[2016-09-05 08:05] VITALS: BP 131/73
[2016-09-05 09:00] VITALS: BP 133/88
[2016-09-05] MEDS: FUROSEMIDE 40 MG/4 ML VIAL IV SCH (09:59)
[2016-09-05] MEDS: NITROGLYCERIN 0.2MG/HR TOPICAL PATCH TD SCH (10:00)
[2016-09-05] MEDS: ENOXAPARIN SOD 40 MG/0.4 ML SYRINGE SC SCH (10:00)
[2016-09-05] MEDS: ASPirin 81 mg TAB PO SCH (10:00)
[2016-09-05] MEDS: FAMOTIDINE 20 MG TAB PO SCH (10:00)
[2016-09-05] MEDS: LISINOPRIL 20 MG TAB PO SCH (10:00)
[2016-09-05] MEDS: CARVEDILOL 3.125 MG TAB PO SCH (10:00)
[2016-09-05] MEDS: POTASSIUM CHL 20 Meq TABLET PO SCH (10:01)
[2016-09-05] MEDS: glyBURIDE 2.5 MG TAB PO SCH (10:01)
[2016-09-05 11:01] VITALS: BP 139/88
[2016-09-05 11:15] VITALS: BP 133/88
[2016-09-05] MEDS: SODIUM CHLORIDE 0.9% 1,000 ML IV SCH (13:24)
== END 2016-09-05 13:10 | disposition home or self-care (01) | DRG 139 ==
LOC: ER 07:19 → EDUNIT# 07:20 → TELE 07:20 → TELE-EAST 18:09
PROVIDERS: ADMIT Internal Medicine; ATTEND Internal Medicine
DX: J18.9 Pneumonia, unspecified organism (principal); E11.21 Type 2 diabetes mellitus with diabetic nephropathy; E44.0 Moderate protein-calorie malnutrition; E11.65 Type 2 diabetes mellitus with hyperglycemia; N39.0 Urinary tract infection, site not specified; I12.9 Hypertensive chronic kidney disease with stage 1 through stage 4 chronic kidney disease, or unspecified chronic kidney disease; N18.9 Chronic kidney disease, unspecified; E78.5 Hyperlipidemia, unspecified; E11.22 Type 2 diabetes mellitus with diabetic chronic kidney disease; F15.10 Other stimulant abuse, uncomplicated; F12.90 Cannabis use, unspecified, uncomplicated; F17.210 Nicotine dependence, cigarettes, uncomplicated; Z59.0 Homelessness; Z82.49 Family history of ischemic heart disease and other diseases of the circulatory system; Z91.19 Patient's noncompliance with other medical treatment and regimen; Z68.30 Body mass index [BMI] 30.0-30.9, adult; Z83.3 Family history of diabetes mellitus; Z79.899 Other long term (current) drug therapy
CPT/HCPCS: 36415; 71020; 80048; 80053; 80061; 81001; 82962; 83036; 83690; 83735; 83880; 84443; 84484; 85025; 87040; 87081; 87086; 87400; 93005; 94640; 94761; 96361; 96365; 96368; G0434; J0696; J1815; J1956

== ENCOUNTER 2016-09-07 03:56 | Inpatient (IN) | payer MEDICAID ==
[~2016-09-07] VITALS: Ht 180.3 cm; Wt 94.9 kg
[2016-09-07 05:22] LABS: Basophils # (auto) 0.1 uL; Basophils % (auto) 1.7 % (0.0-2.0); Eosinophils # (auto) 0.3 uL; Eosinophils % (auto) 3.7 % (0.0-7.0); Hematocrit 40.9 % (41.0-53.0); Hemoglobin 13.7 g/dL (13.5-17.5); Lymphocytes # (auto) 1.2 uL; Lymphocytes % (auto) 13.4 % (10.0-50.0); Mean Corpuscular Hemoglobin 29.6 pg (28.0-32.0); Mean Corpuscular Hgb Conc. 33.5 g/dL (32.0-36.0); Mean Corpuscular Volume 88.3 fL (80.0-100.0); Mean Platelet Volume 9.7 fL (7.4-10.4); Monocytes # (auto) 0.8 uL; Monocytes % (auto) 8.7 % (0.0-12.0); Neutrophils # (auto) 6.5 uL; Neutrophils % (auto) 72.5 % (37.0-80.0); Platelet Count (auto) 303 10^3/uL (140-450); Red Cell Distribution Width 17.2 % (11.6-16.0)
[2016-09-07 05:28] LABS: INR 0.97 (0.9-1.15); Partial Thromboplastin Time 26.5 sec (22.64-33.71); Prothrombin Time 10.5 sec (9.37-12.3)
[2016-09-07 05:32] LABS: Albumin 3.6 g/dL (3.4-5.0); BUN/Creatinine Ratio 14.8; Calcium 8.5 mg/dL (8.5-10.1); Magnesium 2.3 mg/dL (1.6-2.6)
[2016-09-07 05:37] LABS: Bilirubin, Total 0.4 mg/dL (0.2-1.0); Total Protein 7.6 g/dL (6.4-8.2)
[2016-09-07 05:45] LABS: B-Type Natriuretic Peptide 1201.15 pg/mL (0-100)
[2016-09-07] MEDS ORDERED: FUROSEMIDE 20 MG/2 ML VIAL IV ONE (07:30)
[2016-09-07] MEDS ORDERED: PIPERACILLIN-TAZOB 3.375GM 100 ML IV ONE (07:30)
[2016-09-07] MEDS ORDERED: ENOXAPARIN SOD 100 MG/1 ML SYRINGE SC ONE (07:30)
[2016-09-07] MEDS ORDERED: cloNIDine HCL 0.1 MG TAB PO ONE (07:30)
[2016-09-07] MEDS ORDERED: CLOPIDOGREL BISULFATE 75 MG TAB PO ONE (07:30)
[2016-09-07 09:19] LABS: Urine Bilirubin Negative (Negative); Urine Blood Negative /uL (Negative); Urine Color Colorless (Yellow); Urine Glucose Normal (Normal); Urine Ketone Negative (Negative); Urine Nitrite Negative (Negative); Urine RBC 2 /hpf (0 - 3); Urine Urobilinogen Normal (Negative); Urine pH 6.5 (5.0-8.0)
[2016-09-07] MEDS ORDERED: glyBURIDE 2.5 MG TAB PO ONE (12:15)
[2016-09-07] MEDS ORDERED: ONDANSETRON HCL 4 MG/2 ML VIAL IV PRN (12:15)
[2016-09-07] MEDS ORDERED: ZOLPIDEM TARTRATE 5 MG TAB PO PRN (12:15)
[2016-09-07] MEDS ORDERED: MORPHINE SULF INJ 2 MG/ML SYRINGE 1ML IV PRN (12:15)
[2016-09-07] MEDS ORDERED: NITROGLYCERIN 0.4 MG SL TAB SL PRN ×2 (12:15)
[2016-09-07] MEDS ORDERED: ACETAMINOPHEN 325 MG TAB PO PRN (12:15)
[2016-09-07] MEDS ORDERED: DEXTROSE (50%) 50ML SYRG IV PRN (12:15)
[2016-09-07] MEDS ORDERED: LORazepam 0.5 MG TAB PO PRN (12:15)
[2016-09-07] MEDS ORDERED: ALUM & MAG HYDROX-SIMETH LIQ(MAALOX) 30 ML PO PRN (12:15)
[2016-09-07] MEDS ORDERED: POTASSIUM CHL 10 Meq TABLET PO ONE (12:15)
[2016-09-07] MEDS ORDERED: cefTRIAXone 1GM/50ML D5W 50 ML IV ONE (12:15)
[2016-09-07] MEDS: DOCUSATE SOD 100 MG CAP PO SCH (12:33)
[2016-09-07] MEDS: ASPirin 81 mg TAB PO SCH (12:39)
[2016-09-07] MEDS: MORPHINE SULF INJ 2 MG/ML SYRINGE 1ML IV PRN (12:39)
[2016-09-07] MEDS: ENALAPRIL MALEATE 2.5 MG TAB PO SCH ×2 (12:40→21:23)
[2016-09-07] MEDS: CARVEDILOL 3.125 MG TAB PO SCH ×2 (12:40→21:22)
[2016-09-07] MEDS ORDERED: AZITHROMYCIN 500MG/D5W 250ML 250 ML IV ONE (13:15)
[2016-09-07] MEDS: SODIUM CHLOR 0.9% PF (SALINE LOCK) 10ML VIAL IV SCH ×2 (14:04→21:24)
[2016-09-07] MEDS: GABAPENTIN 300 MG CAP PO SCH ×2 (14:06→21:24)
[2016-09-07] MEDS: ACCU-CHEK COMFORT CURVE STRIP VI SCH ×2 (17:00→21:37)
[2016-09-07] MEDS: InsuLIN REG 1unit/0.01ml Soln (100units/ml) SC SCH ×2 (17:00→21:37)
[2016-09-07] MEDS: ALBUTEROL SULF 2.5 MG/0.5ML(0.5%) NEB SOLN NEB PRN (20:01)
[2016-09-07 20:14] VITALS: BP 131/84
[2016-09-07 20:30] VITALS: BP 113/81
[2016-09-07] MEDS: OXYCODONE W/ ACETAMINOPHEN 5/325MG TABLET PO PRN (20:40)
[2016-09-07] MEDS: ATORVASTATIN 20 MG TAB PO SCH (21:24)
[2016-09-07] MEDS: ACETYLCYSTEINE ORAL for CIN 20%(200MG/ML) 4ML PO SCH (22:20)
[2016-09-07 22:51] VITALS: BP 113/81
[2016-09-08] VITALS (7 sets, daily range): BP systolic 106–133; BP diastolic 67–82
[2016-09-08 06:14] LABS: Basophils # (auto) 0 uL; Basophils % (auto) 0.7 % (0.0-2.0); Eosinophils # (auto) 0.3 uL; Eosinophils % (auto) 4.3 % (0.0-7.0); Hematocrit 37.5 % (41.0-53.0); Hemoglobin 12.7 g/dL (13.5-17.5); Lymphocytes % (auto) 15.7 % (10.0-50.0); Mean Corpuscular Hemoglobin 29.7 pg (28.0-32.0); Mean Corpuscular Hgb Conc. 33.8 g/dL (32.0-36.0); Mean Corpuscular Volume 87.8 fL (80.0-100.0); Mean Platelet Volume 8.8 fL (7.4-10.4); Monocytes # (auto) 0.8 uL; Monocytes % (auto) 13.2 % (0.0-12.0); Neutrophils # (auto) 4.1 uL; Neutrophils % (auto) 66.1 % (37.0-80.0); Platelet Count (auto) 270 10^3/uL (140-450); Red Cell Distribution Width 17.8 % (11.6-16.0); White Blood Cell 6.2 10^3/uL (4.4-10.8)
[2016-09-08 06:36] LABS: Albumin 2.9 g/dL (3.4-5.0); BUN/Creatinine Ratio 15.6; Bilirubin, Total 0.4 mg/dL (0.2-1.0); Calcium 8.5 mg/dL (8.5-10.1); Magnesium 2.1 mg/dL (1.6-2.6); Potassium 4.2 mmol/L (3.5-5.1); Total Protein 6.7 g/dL (6.4-8.2)
[2016-09-08] MEDS: GABAPENTIN 300 MG CAP PO SCH ×3 (06:39→21:37)
[2016-09-08] MEDS: OXYCODONE W/ ACETAMINOPHEN 5/325MG TABLET PO PRN ×3 (06:39→21:13)
[2016-09-08] MEDS: glyBURIDE 2.5 MG TAB PO SCH (06:39)
[2016-09-08] MEDS: SODIUM CHLOR 0.9% PF (SALINE LOCK) 10ML VIAL IV SCH ×3 (06:40→21:39)
[2016-09-08] MEDS: InsuLIN REG 1unit/0.01ml Soln (100units/ml) SC SCH ×4 (06:41→22:00)
[2016-09-08] MEDS: ACCU-CHEK COMFORT CURVE STRIP VI SCH ×4 (06:41→22:20)
[2016-09-08] MEDS: ALBUTEROL SULF 2.5 MG/0.5ML(0.5%) NEB SOLN NEB PRN ×3 (07:02→19:14)
[2016-09-08] MEDS ORDERED: IPRATROPIUM BROM 0.5 MG/2.5ML INH SOL NEB ONE ×2 (09:00→16:51)
[2016-09-08] MEDS: MORPHINE SULF INJ 2 MG/ML SYRINGE 1ML IV PRN (09:42)
[2016-09-08] MEDS: FUROSEMIDE 40 MG/4 ML VIAL IV SCH (09:44)
[2016-09-08] MEDS: DOCUSATE SOD 100 MG CAP PO SCH (09:46)
[2016-09-08] MEDS: POTASSIUM CHL 10 Meq TABLET PO SCH (09:46)
[2016-09-08] MEDS: ASPirin 81 mg TAB PO SCH (09:47)
[2016-09-08] MEDS: CLOPIDOGREL BISULFATE 75 MG TAB PO SCH (09:47)
[2016-09-08] MEDS: CARVEDILOL 3.125 MG TAB PO SCH ×2 (09:47→21:38)
[2016-09-08] MEDS: ENALAPRIL MALEATE 2.5 MG TAB PO SCH ×2 (09:48→22:00)
[2016-09-08] MEDS: AZITHROMYCIN 500MG/D5W 250ML 250 ML IV SCH (09:56)
[2016-09-08] MEDS: cefTRIAXone 1GM/50ML D5W 50 ML IV SCH (10:01)
[2016-09-08] MEDS: ACETYLCYSTEINE ORAL for CIN 20%(200MG/ML) 4ML PO SCH ×2 (10:01→22:19)
[2016-09-08] MEDS: ATORVASTATIN 20 MG TAB PO SCH (21:38)
[2016-09-09] VITALS (8 sets, daily range): BP systolic 107–142; BP diastolic 62–79
[2016-09-09] MEDS: MORPHINE SULF INJ 2 MG/ML SYRINGE 1ML IV PRN ×3 (01:00→17:51)
[2016-09-09 06:02] LABS: Hematocrit 35.5 % (41.0-53.0); Hemoglobin 12.1 g/dL (13.5-17.5); Mean Corpuscular Hemoglobin 29.6 pg (28.0-32.0); Mean Corpuscular Hgb Conc. 33.9 g/dL (32.0-36.0); Mean Corpuscular Volume 87.4 fL (80.0-100.0); Mean Platelet Volume 8.8 fL (7.4-10.4); Platelet Count (auto) 279 10^3/uL (140-450); Red Cell Distribution Width 16.8 % (11.6-16.0); White Blood Cell 4.8 10^3/uL (4.4-10.8)
[2016-09-09] MEDS: glyBURIDE 2.5 MG TAB PO SCH (06:15)
[2016-09-09] MEDS: SODIUM CHLOR 0.9% PF (SALINE LOCK) 10ML VIAL IV SCH ×3 (06:15→22:09)
[2016-09-09] MEDS: GABAPENTIN 300 MG CAP PO SCH ×3 (06:15→22:02)
[2016-09-09] MEDS: ACCU-CHEK COMFORT CURVE STRIP VI SCH ×4 (06:15→22:08)
[2016-09-09] MEDS: InsuLIN REG 1unit/0.01ml Soln (100units/ml) SC SCH ×4 (06:16→22:00)
[2016-09-09] MEDS: OXYCODONE W/ ACETAMINOPHEN 5/325MG TABLET PO PRN ×2 (06:17→22:01)
[2016-09-09 06:25] LABS: Albumin 3.1 g/dL (3.4-5.0); Calcium 8.4 mg/dL (8.5-10.1); Magnesium 2.2 mg/dL (1.6-2.6); Potassium 4.1 mmol/L (3.5-5.1)
[2016-09-09 06:28] LABS: BUN/Creatinine Ratio 15.7
[2016-09-09 06:29] LABS: Metamyelocytes % 0; Myelocytes % 0; Promyelocytes % 0; Reactive Lymphocytes 0
[2016-09-09 06:31] LABS: Bilirubin, Total 0.2 mg/dL (0.2-1.0); Total Protein 6.6 g/dL (6.4-8.2)
[2016-09-09] MEDS: ALBUTEROL SULF 2.5 MG/0.5ML(0.5%) NEB SOLN NEB PRN ×2 (06:46→20:13)
[2016-09-09] MEDS: FUROSEMIDE 40 MG/4 ML VIAL IV SCH (09:52)
[2016-09-09] MEDS: AZITHROMYCIN 500MG/D5W 250ML 250 ML IV SCH (09:53)
[2016-09-09] MEDS: ASPirin 81 mg TAB PO SCH (09:54)
[2016-09-09] MEDS: cefTRIAXone 1GM/50ML D5W 50 ML IV SCH (09:54)
[2016-09-09] MEDS: CLOPIDOGREL BISULFATE 75 MG TAB PO SCH (09:55)
[2016-09-09] MEDS: CARVEDILOL 3.125 MG TAB PO SCH ×2 (09:55→22:00)
[2016-09-09] MEDS: ENALAPRIL MALEATE 2.5 MG TAB PO SCH ×2 (09:55→22:03)
[2016-09-09] MEDS: DOCUSATE SOD 100 MG CAP PO SCH (09:55)
[2016-09-09] MEDS: POTASSIUM CHL 10 Meq TABLET PO SCH (09:55)
[2016-09-09] MEDS: ACETYLCYSTEINE ORAL for CIN 20%(200MG/ML) 4ML PO SCH (09:56)
[2016-09-09 15:02] LABS: Platelet Estimate Adequate
[2016-09-09] MEDS: ATORVASTATIN 20 MG TAB PO SCH (22:02)
[2016-09-10] VITALS (7 sets, daily range): BP systolic 121–143; BP diastolic 72–87
[2016-09-10] MEDS: MORPHINE SULF INJ 2 MG/ML SYRINGE 1ML IV PRN (03:15)
[2016-09-10] MEDS ORDERED: SODIUM CHLORIDE 0.9 % NEB SOLN 3ML NEB ONE (05:39)
[2016-09-10] MEDS: GABAPENTIN 300 MG CAP PO SCH ×3 (06:00→21:50)
[2016-09-10] MEDS: glyBURIDE 2.5 MG TAB PO SCH (06:38)
[2016-09-10] MEDS: SODIUM CHLOR 0.9% PF (SALINE LOCK) 10ML VIAL IV SCH ×3 (06:41→21:50)
[2016-09-10] MEDS: ACCU-CHEK COMFORT CURVE STRIP VI SCH ×4 (06:41→21:51)
[2016-09-10] MEDS: InsuLIN REG 1unit/0.01ml Soln (100units/ml) SC SCH ×4 (06:41→21:51)
[2016-09-10] MEDS ORDERED: ADENOSINE IV STA (10:09)
[2016-09-10] MEDS ORDERED: GIVE UN DILUTED IV STA (10:09)
[2016-09-10] MEDS: OXYCODONE W/ ACETAMINOPHEN 5/325MG TABLET PO PRN ×2 (11:44→17:32)
[2016-09-10] MEDS: AZITHROMYCIN 500MG/D5W 250ML 250 ML IV SCH (11:47)
[2016-09-10] MEDS: cefTRIAXone 1GM/50ML D5W 50 ML IV SCH (11:47)
[2016-09-10] MEDS: ASPirin 81 mg TAB PO SCH (11:49)
[2016-09-10] MEDS: CARVEDILOL 3.125 MG TAB PO SCH ×2 (11:49→21:50)
[2016-09-10] MEDS: CLOPIDOGREL BISULFATE 75 MG TAB PO SCH (11:49)
[2016-09-10] MEDS: FUROSEMIDE 40 MG/4 ML VIAL IV SCH (11:49)
[2016-09-10] MEDS: DOCUSATE SOD 100 MG CAP PO SCH (11:50)
[2016-09-10] MEDS: POTASSIUM CHL 10 Meq TABLET PO SCH (11:50)
[2016-09-10] MEDS: ENALAPRIL MALEATE 2.5 MG TAB PO SCH ×2 (11:50→21:50)
[2016-09-10] MEDS: ALBUTEROL SULF 2.5 MG/0.5ML(0.5%) NEB SOLN NEB PRN (19:20)
[2016-09-10] MEDS: ATORVASTATIN 20 MG TAB PO SCH (21:50)
[2016-09-11] MEDS: ALBUTEROL SULF 2.5 MG/0.5ML(0.5%) NEB SOLN NEB PRN ×2 (00:14→12:20)
[2016-09-11 03:56] VITALS: BP 132/74
[2016-09-11] MEDS: OXYCODONE W/ ACETAMINOPHEN 5/325MG TABLET PO PRN ×3 (05:24→18:20)
[2016-09-11] MEDS: SODIUM CHLOR 0.9% PF (SALINE LOCK) 10ML VIAL IV SCH ×2 (05:24→16:53)
[2016-09-11] MEDS: GABAPENTIN 300 MG CAP PO SCH ×2 (05:24→14:06)
[2016-09-11 05:46] VITALS: BP 127/76
[2016-09-11 06:08] LABS: Potassium 4.5 mmol/L (3.5-5.1)
[2016-09-11] MEDS: ACCU-CHEK COMFORT CURVE STRIP VI SCH ×3 (06:08→17:15)
[2016-09-11] MEDS: glyBURIDE 2.5 MG TAB PO SCH (06:09)
[2016-09-11] MEDS: InsuLIN REG 1unit/0.01ml Soln (100units/ml) SC SCH ×3 (06:09→17:00)
[2016-09-11 06:12] LABS: BUN/Creatinine Ratio 21.8; Calcium 8.2 mg/dL (8.5-10.1)
[2016-09-11 06:35] LABS: B-Type Natriuretic Peptide 130.08 pg/mL (0-100)
[2016-09-11 09:00] VITALS: BP 128/84
[2016-09-11] MEDS: cefTRIAXone 1GM/50ML D5W 50 ML IV SCH (09:38)
[2016-09-11] MEDS: FUROSEMIDE 40 MG/4 ML VIAL IV SCH (10:58)
[2016-09-11] MEDS: AZITHROMYCIN 500MG/D5W 250ML 250 ML IV SCH (10:59)
[2016-09-11] MEDS: POTASSIUM CHL 10 Meq TABLET PO SCH (10:59)
[2016-09-11] MEDS: ASPirin 81 mg TAB PO SCH (10:59)
[2016-09-11] MEDS: DOCUSATE SOD 100 MG CAP PO SCH (10:59)
[2016-09-11] MEDS: CARVEDILOL 3.125 MG TAB PO SCH (10:59)
[2016-09-11] MEDS: CLOPIDOGREL BISULFATE 75 MG TAB PO SCH (11:00)
[2016-09-11] MEDS: ENALAPRIL MALEATE 2.5 MG TAB PO SCH (11:00)
[2016-09-11 13:00] VITALS: BP 124/76
[2016-09-11 17:00] VITALS: BP 125/79
== END 2016-09-11 18:46 | disposition home or self-care (01) | DRG 194 ==
LOC: ER 03:59 → TELE 04:00 → TELE-EAST 20:22
PROVIDERS: ADMIT Internal Medicine; ATTEND Internal Medicine
DX: I13.0 Hypertensive heart and chronic kidney disease with heart failure and stage 1 through stage 4 chronic kidney disease, or unspecified chronic kidney disease (principal); J18.9 Pneumonia, unspecified organism; E44.0 Moderate protein-calorie malnutrition; N18.4 Chronic kidney disease, stage 4 (severe); E11.21 Type 2 diabetes mellitus with diabetic nephropathy; I42.0 Dilated cardiomyopathy; D64.9 Anemia, unspecified; I50.43 Acute on chronic combined systolic (congestive) and diastolic (congestive) heart failure; E11.22 Type 2 diabetes mellitus with diabetic chronic kidney disease; F17.210 Nicotine dependence, cigarettes, uncomplicated; E78.5 Hyperlipidemia, unspecified; J98.11 Atelectasis; Z82.3 Family history of stroke; Z82.49 Family history of ischemic heart disease and other diseases of the circulatory system; Z87.01 Personal history of pneumonia (recurrent); Z59.0 Homelessness; Z83.3 Family history of diabetes mellitus; Z91.19 Patient's noncompliance with other medical treatment and regimen; Z68.29 Body mass index [BMI] 29.0-29.9, adult; I25.2 Old myocardial infarction; Z71.6 Tobacco abuse counseling
CPT/HCPCS: 36415; 71010; 78452; 80048; 80053; 80061; 80307; 81001; 82962; 83036; 83735; 83880; 84443; 84484; 85007; 85025; 85027; 85610; 85730; 87040; 87081; 93005; 93017; 93306; 94640; 96365; 96366; 96367; 96375; 99291; J0153; J0696; J1815; J2543

== ENCOUNTER 2016-09-11 19:35 | Emergency (ER) | payer MEDICAID ==
[~2016-09-11] VITALS: Ht 180.3 cm; Wt 99.8 kg
[2016-09-11 19:43] VITALS: BP 107/77
[2016-09-11 20:28] LABS: Basophils # (auto) 0 uL; Basophils % (auto) 0.5 % (0.0-2.0); Eosinophils # (auto) 0.3 uL; Eosinophils % (auto) 5.2 % (0.0-7.0); Hematocrit 38.5 % (41.0-53.0); Lymphocytes % (auto) 30.5 % (10.0-50.0); Mean Corpuscular Hemoglobin 29.6 pg (28.0-32.0); Mean Corpuscular Hgb Conc. 33.8 g/dL (32.0-36.0); Mean Corpuscular Volume 87.6 fL (80.0-100.0); Monocytes # (auto) 0.7 uL; Monocytes % (auto) 11.1 % (0.0-12.0); Neutrophils # (auto) 3.4 uL; Neutrophils % (auto) 52.7 % (37.0-80.0); Platelet Count (auto) 264 10^3/uL (140-450); White Blood Cell 6.5 10^3/uL (4.4-10.8)
[2016-09-11 20:46] LABS: INR 0.99 (0.9-1.15); Prothrombin Time 10.7 sec (9.37-12.3)
[2016-09-11 20:57] LABS: Albumin 3.5 g/dL (3.4-5.0); Anion Gap 14 (5-15); Blood Urea Nitrogen 61 mg/dL (7-18); Calcium 8.1 mg/dL (8.5-10.1); Carbon Dioxide 20 mmol/L (21-32); Chloride 102 mmol/L (98-107); Glucose 123 mg/dL (74-106); Potassium 4.1 mmol/L (3.5-5.1); Sodium 136 mmol/L (136-145)
[2016-09-11 20:59] LABS: Aspartate Aminotransferase 24 U/L (15-37); BUN/Creatinine Ratio 20.1; GFR African American 29 mL/min; GFR Non-African American 24 mL/min
[2016-09-11 21:18] LABS: Alkaline Phosphatase 70 U/L (45-117); Bilirubin, Total 0.3 mg/dL (0.2-1.0); Total Protein 7.5 g/dL (6.4-8.2)
[2016-09-11 21:34] LABS: B-Type Natriuretic Peptide 101.15 pg/mL (0-100); Temperature: 23.1 C (20.0-25.0)
[2016-09-13] MEDS ORDERED: LISI40TA PO (01:06)
== END 2016-09-12 00:36 | disposition left against medical advice (07) ==
LOC: ER 19:40
DX: R06.02 Shortness of breath (principal); Z53.21 Procedure and treatment not carried out due to patient leaving prior to being seen by health care provider
CPT/HCPCS: 36415; 80053; 83880; 84484; 85025; 85610; 85730; J7030; 93005

== ENCOUNTER 2016-09-12 09:11 | Inpatient (IN) | payer MEDICAID ==
[~2016-09-12] VITALS: Ht 180.3 cm; Wt 95.0 kg
[2016-09-12] MEDS ORDERED: SODIUM CHLORIDE 0.9% 1,000 ML IV ONE (10:05)
[2016-09-12] MEDS ORDERED: ASPirin 81 mg TAB PO ONE (10:15)
[2016-09-12 10:42] LABS: Basophils # (auto) 0 uL; Basophils % (auto) 0.5 % (0.0-2.0); Eosinophils # (auto) 0.3 uL; Eosinophils % (auto) 6.4 % (0.0-7.0); Hematocrit 37.3 % (41.0-53.0); Hemoglobin 12.9 g/dL (13.5-17.5); Lymphocytes # (auto) 1.6 uL; Lymphocytes % (auto) 33.7 % (10.0-50.0); Mean Corpuscular Hemoglobin 29.8 pg (28.0-32.0); Mean Corpuscular Hgb Conc. 34.6 g/dL (32.0-36.0); Mean Corpuscular Volume 86.1 fL (80.0-100.0); Mean Platelet Volume 9.8 fL (7.4-10.4); Monocytes # (auto) 0.4 uL; Monocytes % (auto) 9.4 % (0.0-12.0); Neutrophils # (auto) 2.4 uL; Platelet Count (auto) 264 10^3/uL (140-450); Red Cell Distribution Width 17.5 % (11.6-16.0); White Blood Cell 4.7 10^3/uL (4.4-10.8)
[2016-09-12 11:05] LABS: Albumin 3.5 g/dL (3.4-5.0); Alkaline Phosphatase 78 U/L (45-117); Anion Gap 10 (5-15); Aspartate Aminotransferase 28 U/L (15-37); Bilirubin, Total 0.3 mg/dL (0.2-1.0); Blood Urea Nitrogen 64 mg/dL (7-18); Calcium 8.6 mg/dL (8.5-10.1); Carbon Dioxide 23 mmol/L (21-32); Chloride 104 mmol/L (98-107); GFR African American 32 mL/min; GFR Non-African American 26 mL/min; Glucose 132 mg/dL (74-106); Magnesium 2.5 mg/dL (1.6-2.6); Potassium 4.7 mmol/L (3.5-5.1); Sodium 137 mmol/L (136-145); Total Protein 7.7 g/dL (6.4-8.2)
[2016-09-12] MEDS: SODIUM CHLORIDE 0.9% 1,000 ML IV SCH ×2 (16:09→16:32)
[2016-09-12] MEDS ORDERED: PROCHLORPERAZINE EDISYLATE 5 MG/ML 2ML VIAL IV PRN (16:15)
[2016-09-12] MEDS ORDERED: HYDROcodone-ACET 5/325MG TAB PO PRN (16:15)
[2016-09-12] MEDS ORDERED: MORPHINE SULF INJ 2 MG/ML SYRINGE 1ML IV PRN (16:15)
[2016-09-12] MEDS ORDERED: ACETAMINOPHEN 500 MG TAB PO PRN (16:15)
[2016-09-12] MEDS ORDERED: LORazepam 0.5 MG TAB PO PRN (16:15)
[2016-09-12] MEDS ORDERED: LACTULOSE 20Gm/30ML SOLN PO PRN (16:15)
[2016-09-12] MEDS ORDERED: NITROGLYCERIN 0.4 MG SL TAB SL PRN (16:15)
[2016-09-12] MEDS: ACCU-CHEK COMFORT CURVE STRIP VI SCH ×2 (16:15→22:00)
[2016-09-12] MEDS ORDERED: DEXTROSE (50%) 50ML SYRG IV PRN (16:15)
[2016-09-12] MEDS ORDERED: TEMAZEPAM 15 MG CAP PO PRN (16:15)
[2016-09-12] MEDS: InsuLIN REG 1unit/0.01ml Soln (100units/ml) SC SCH ×2 (16:17→22:00)
[2016-09-12] MEDS ORDERED: NITROGLYCERIN 0.2MG/HR TOPICAL PATCH TD ONE (16:30)
[2016-09-12] MEDS ORDERED: ENOXAPARIN SOD 40 MG/0.4 ML SYRINGE SC ONE (16:30)
[2016-09-12] MEDS ORDERED: METOPROLOL TARTRATE 25 MG TAB PO ONE (16:30)
[2016-09-12 22:00] VITALS: BP 157/91
[2016-09-12] MEDS ORDERED: ATORVASTATIN 20 MG TAB PO SCH (22:00)
[2016-09-12] MEDS: METOPROLOL TARTRATE 25 MG TAB PO SCH (22:18)
[2016-09-12 23:00] VITALS: BP 157/91
[2016-09-13] MEDS ORDERED: LISI40TA PO (01:06)
[2016-09-13 02:16] LABS: Basophils # (auto) 0 uL; Basophils % (auto) 0.4 % (0.0-2.0); Eosinophils # (auto) 0.3 uL; Eosinophils % (auto) 6.6 % (0.0-7.0); Hematocrit 37.1 % (41.0-53.0); Hemoglobin 12.8 g/dL (13.5-17.5); Lymphocytes # (auto) 2.2 uL; Lymphocytes % (auto) 43.8 % (10.0-50.0); Mean Corpuscular Hgb Conc. 34.5 g/dL (32.0-36.0); Mean Corpuscular Volume 87.2 fL (80.0-100.0); Mean Platelet Volume 8.9 fL (7.4-10.4); Monocytes # (auto) 0.6 uL; Monocytes % (auto) 11.1 % (0.0-12.0); Neutrophils % (auto) 38.1 % (37.0-80.0); Platelet Count (auto) 236 10^3/uL (140-450); Red Cell Distribution Width 16.6 % (11.6-16.0); White Blood Cell 5.1 10^3/uL (4.4-10.8)
[2016-09-13 02:38] LABS: Albumin 3.2 g/dL (3.4-5.0); BUN/Creatinine Ratio 22.7; Bilirubin, Total 0.2 mg/dL (0.2-1.0); Calcium 8.4 mg/dL (8.5-10.1); Potassium 4.2 mmol/L (3.5-5.1); Total Protein 7.1 g/dL (6.4-8.2)
[2016-09-13 04:49] VITALS: BP 163/89
[2016-09-13] MEDS: MORPHINE SULF INJ 2 MG/ML SYRINGE 1ML IV PRN ×2 (05:06→10:22)
[2016-09-13] MEDS: ACCU-CHEK COMFORT CURVE STRIP VI SCH ×2 (06:35→11:15)
[2016-09-13] MEDS: InsuLIN REG 1unit/0.01ml Soln (100units/ml) SC SCH ×2 (06:35→11:15)
[2016-09-13 08:00] VITALS: BP_DIAS 93
[2016-09-13 09:05] VITALS: BP 135/93
[2016-09-13] MEDS ORDERED: ENOXAPARIN SOD 40 MG/0.4 ML SYRINGE SC SCH (10:00)
[2016-09-13] MEDS ORDERED: ASPirin 81 mg TAB PO SCH (10:00)
[2016-09-13] MEDS ORDERED: NITROGLYCERIN 0.2MG/HR TOPICAL PATCH TD SCH (10:00)
[2016-09-13] MEDS: METOPROLOL TARTRATE 25 MG TAB PO SCH (10:21)
[2016-09-13 14:17] VITALS: BP 148/77
== END 2016-09-13 12:30 | disposition left against medical advice (07) | DRG 203 ==
LOC: ER 09:15 → TELE 09:16 → TELE-WESTW 20:45
PROVIDERS: ADMIT Internal Medicine; ATTEND Internal Medicine
DX: R07.89 Other chest pain (principal); I42.9 Cardiomyopathy, unspecified; N17.9 Acute kidney failure, unspecified; E11.21 Type 2 diabetes mellitus with diabetic nephropathy; I13.0 Hypertensive heart and chronic kidney disease with heart failure and stage 1 through stage 4 chronic kidney disease, or unspecified chronic kidney disease; I50.9 Heart failure, unspecified; N18.3 Chronic kidney disease, stage 3 (moderate); E11.42 Type 2 diabetes mellitus with diabetic polyneuropathy; F15.10 Other stimulant abuse, uncomplicated; M54.9 Dorsalgia, unspecified; E78.5 Hyperlipidemia, unspecified; F17.210 Nicotine dependence, cigarettes, uncomplicated; G89.29 Other chronic pain; E11.22 Type 2 diabetes mellitus with diabetic chronic kidney disease; Z59.0 Homelessness; Z91.19 Patient's noncompliance with other medical treatment and regimen; Z79.899 Other long term (current) drug therapy; Z80.8 Family history of malignant neoplasm of other organs or systems; Z82.3 Family history of stroke
CPT/HCPCS: 36415; 80053; 80061; 82550; 82962; 83036; 83735; 84484; 85025; 85379; 85652; 86141; 87081; 93005; 94761; 96360; 96361; 96372; J1815

== ENCOUNTER 2016-09-17 10:08 | Emergency (ER) | payer MEDICAID ==
[~2016-09-17] VITALS: Ht 180.3 cm; Wt 99.8 kg
[~2016-09-17 10:08] MED LIST changes: +LISI40TA PO
[2016-09-17 10:26] VITALS: BP 124/69
== END 2016-09-17 11:06 | disposition home or self-care (01) ==
LOC: ER 10:08
DX: F15.10 Other stimulant abuse, uncomplicated (principal); R10.84 Generalized abdominal pain; R07.9 Chest pain, unspecified; F17.210 Nicotine dependence, cigarettes, uncomplicated; E11.22 Type 2 diabetes mellitus with diabetic chronic kidney disease; I12.9 Hypertensive chronic kidney disease with stage 1 through stage 4 chronic kidney disease, or unspecified chronic kidney disease; N18.9 Chronic kidney disease, unspecified; E78.5 Hyperlipidemia, unspecified; F12.10 Cannabis abuse, uncomplicated; Z59.0 Homelessness
CPT/HCPCS: 71020; 93005

== ENCOUNTER 2016-09-25 18:14 | Inpatient (IN) | payer MEDICAID ==
[~2016-09-25] VITALS: Ht 177.8 cm; Wt 102.3 kg
[2016-09-25 19:36] LABS: Urine Bilirubin Negative (Negative); Urine Blood Negative /uL (Negative); Urine Color Yellow (Yellow); Urine Glucose Normal (Normal); Urine Ketone Negative (Negative); Urine Nitrite Negative (Negative); Urine RBC <1 /hpf (0 - 3); Urine Squamous Epithelial Cell FEW /hpf (<5); Urine Urobilinogen Normal (Negative); Urine pH 5.5 (5.0-8.0)
[2016-09-25 19:40] LABS: Basophils # (auto) 0 uL; Basophils % (auto) 0.2 % (0.0-2.0); Eosinophils # (auto) 0.3 uL; Eosinophils % (auto) 3.6 % (0.0-7.0); Hematocrit 36.6 % (41.0-53.0); Lymphocytes # (auto) 1.6 uL; Lymphocytes % (auto) 22.1 % (10.0-50.0); Mean Corpuscular Hemoglobin 30.5 pg (28.0-32.0); Mean Corpuscular Hgb Conc. 35.5 g/dL (32.0-36.0); Mean Platelet Volume 8.8 fL (7.4-10.4); Monocytes # (auto) 0.5 uL; Monocytes % (auto) 7.1 % (0.0-12.0); Neutrophils # (auto) 4.8 uL; Platelet Count (auto) 284 10^3/uL (140-450); Red Cell Distribution Width 15.8 % (11.6-16.0); White Blood Cell 7.1 10^3/uL (4.4-10.8)
[2016-09-25 19:49] LABS: Albumin 3.9 g/dL (3.4-5.0); BUN/Creatinine Ratio 22.9; Calcium 8.8 mg/dL (8.5-10.1); Potassium 4.7 mmol/L (3.5-5.1)
[2016-09-25 19:52] LABS: Bilirubin, Total 0.3 mg/dL (0.2-1.0); Total Protein 7.5 g/dL (6.4-8.2)
[2016-09-26] MEDS ORDERED: MORPHINE SULF INJ 2 MG/ML SYRINGE 1ML IV ONE (06:15)
[2016-09-26] MEDS ORDERED: ONDANSETRON HCL 4 MG/2 ML VIAL IV ONE (06:15)
[2016-09-26] MEDS ORDERED: DEXTROSE (50%) 50ML SYRG IV PRN (09:30)
[2016-09-26] MEDS ORDERED: TEMAZEPAM 15 MG CAP PO PRN (09:30)
[2016-09-26] MEDS ORDERED: OXYCODONE W/ ACETAMINOPHEN 5/325MG TABLET PO PRN (09:30)
[2016-09-26] MEDS ORDERED: ACETAMINOPHEN 325 MG TAB PO PRN (09:30)
[2016-09-26] MEDS ORDERED: ONDANSETRON HCL 4 MG/2 ML VIAL IV PRN (09:30)
[2016-09-26] MEDS ORDERED: cefTRIAXone 1GM/50ML D5W 50 ML IV ONE (09:30)
[2016-09-26] MEDS ORDERED: DOCUSATE SOD 100 MG CAP PO PRN (09:30)
[2016-09-26] MEDS ORDERED: cloNIDine HCL 0.1 MG TAB PO PRN (09:45)
[2016-09-26] MEDS: MULTIPLE VITAMIN TAB PO SCH (09:59)
[2016-09-26] MEDS ORDERED: glyBURIDE 2.5 MG TAB PO SCH (10:00)
[2016-09-26] MEDS ORDERED: LISINOPRIL 20 MG TAB PO SCH (10:00)
[2016-09-26] MEDS: ACCU-CHEK COMFORT CURVE STRIP VI SCH ×3 (11:25→21:51)
[2016-09-26] MEDS: InsuLIN REG 1unit/0.01ml Soln (100units/ml) SC SCH ×3 (11:25→21:51)
[2016-09-26] MEDS ORDERED: glyBURIDE 2.5 MG TAB PO ONE (12:00)
[2016-09-26] MEDS: MORPHINE SULF INJ 2 MG/ML SYRINGE 1ML IV PRN ×2 (13:31→21:35)
[2016-09-26] MEDS: SODIUM CHLOR 0.9% PF (SALINE LOCK) 10ML VIAL IV SCH ×2 (13:42→21:36)
[2016-09-26] MEDS: GABAPENTIN 300 MG CAP PO SCH ×2 (14:12→21:35)
[2016-09-26] MEDS: SOD CHL 0.45% 1,000 ML IV SCH (16:53)
[2016-09-26] MEDS: ATORVASTATIN 20 MG TAB PO SCH (21:35)
[2016-09-26 21:38] VITALS: BP 136/100
[2016-09-26] MEDS: INSULIN DETEMIR(LEVEMIR) 1unit/0.01ml Soln (100units/ml) SC SCH (21:51)
[2016-09-27] MEDS: SOD CHL 0.45% 1,000 ML IV SCH (03:09)
[2016-09-27] MEDS: MORPHINE SULF INJ 2 MG/ML SYRINGE 1ML IV PRN ×2 (05:17→09:25)
[2016-09-27] MEDS: SODIUM CHLOR 0.9% PF (SALINE LOCK) 10ML VIAL IV SCH ×3 (05:18→22:03)
[2016-09-27 05:28] VITALS: BP 138/74
[2016-09-27] MEDS: GABAPENTIN 300 MG CAP PO SCH ×3 (06:31→21:59)
[2016-09-27] MEDS: ACCU-CHEK COMFORT CURVE STRIP VI SCH ×4 (06:31→22:00)
[2016-09-27] MEDS: InsuLIN REG 1unit/0.01ml Soln (100units/ml) SC SCH ×4 (06:31→22:00)
[2016-09-27 08:00] VITALS: BP 139/99
[2016-09-27] MEDS: glyBURIDE 2.5 MG TAB PO SCH (08:13)
[2016-09-27] MEDS: MULTIPLE VITAMIN TAB PO SCH (09:24)
[2016-09-27] MEDS: cefTRIAXone 1GM/50ML D5W 50 ML IV SCH (09:24)
[2016-09-27 09:30] VITALS: BP 139/99
[2016-09-27 09:32] LABS: Urine Bilirubin Negative (Negative); Urine Blood Negative /uL (Negative); Urine Color Yellow (Yellow); Urine Glucose Normal (Normal); Urine Ketone Negative (Negative); Urine Nitrite Negative (Negative); Urine RBC 1 /hpf (0 - 3); Urine Urobilinogen Normal (Negative); Urine pH 5.5 (5.0-8.0)
[2016-09-27] MEDS ORDERED: QUEtiapine FUMARATE 25 MG TAB PO ONE (12:45)
[2016-09-27 13:30] VITALS: BP 153/90
[2016-09-27 14:07] LABS: Albumin 3.7 g/dL (3.4-5.0); BUN/Creatinine Ratio 19.3; Bilirubin, Total 0.3 mg/dL (0.2-1.0); Calcium 8.5 mg/dL (8.5-10.1); Potassium 4.9 mmol/L (3.5-5.1); Total Protein 7.4 g/dL (6.4-8.2)
[2016-09-27 14:08] LABS: Phosphorus 3.8 mg/dL (2.5-4.90); Uric Acid 6.2 mg/dL (3.5-7.2)
[2016-09-27 14:22] LABS: Basophils # (auto) 0 uL; Basophils % (auto) 0.5 % (0.0-2.0); Eosinophils # (auto) 0.3 uL; Eosinophils % (auto) 4.2 % (0.0-7.0); Hematocrit 43.7 % (41.0-53.0); Hemoglobin 14.9 g/dL (13.5-17.5); Lymphocytes % (auto) 29.7 % (10.0-50.0); Mean Corpuscular Hemoglobin 30.3 pg (28.0-32.0); Mean Corpuscular Hgb Conc. 34.2 g/dL (32.0-36.0); Mean Corpuscular Volume 88.7 fL (80.0-100.0); Monocytes # (auto) 0.4 uL; Monocytes % (auto) 6.4 % (0.0-12.0); Neutrophils % (auto) 59.2 % (37.0-80.0); Platelet Count (auto) 278 10^3/uL (140-450); Red Cell Distribution Width 15.7 % (11.6-16.0); White Blood Cell 6.8 10^3/uL (4.4-10.8)
[2016-09-27] MEDS ORDERED: QUEtiapine FUMARATE 100 MG TAB PO ONE (18:00)
[2016-09-27 18:24] VITALS: BP 134/79
[2016-09-27] MEDS: ACETAMINOPHEN 500 MG TAB PO PRN (19:47)
[2016-09-27] MEDS: ATORVASTATIN 20 MG TAB PO SCH (21:59)
[2016-09-27 22:00] VITALS: BP 101/50
[2016-09-27] MEDS: INSULIN DETEMIR(LEVEMIR) 1unit/0.01ml Soln (100units/ml) SC SCH (22:03)
[2016-09-28 05:00] VITALS: BP 98/64
[2016-09-28] MEDS: SODIUM CHLOR 0.9% PF (SALINE LOCK) 10ML VIAL IV SCH ×3 (06:23→21:55)
[2016-09-28] MEDS: InsuLIN REG 1unit/0.01ml Soln (100units/ml) SC SCH ×4 (06:24→21:55)
[2016-09-28] MEDS: GABAPENTIN 300 MG CAP PO SCH ×3 (06:24→21:55)
[2016-09-28] MEDS: ACCU-CHEK COMFORT CURVE STRIP VI SCH ×4 (06:24→21:55)
[2016-09-28 07:49] LABS: Basophils # (auto) 0 uL; Basophils % (auto) 0.3 % (0.0-2.0); Eosinophils # (auto) 0.4 uL; Eosinophils % (auto) 4.2 % (0.0-7.0); Hematocrit 37.3 % (41.0-53.0); Lymphocytes # (auto) 1.7 uL; Lymphocytes % (auto) 19.6 % (10.0-50.0); Mean Corpuscular Hemoglobin 30.4 pg (28.0-32.0); Mean Corpuscular Hgb Conc. 34.8 g/dL (32.0-36.0); Mean Corpuscular Volume 87.4 fL (80.0-100.0); Mean Platelet Volume 8.8 fL (7.4-10.4); Monocytes # (auto) 0.7 uL; Monocytes % (auto) 8.1 % (0.0-12.0); Neutrophils # (auto) 5.9 uL; Neutrophils % (auto) 67.8 % (37.0-80.0); Platelet Count (auto) 283 10^3/uL (140-450); Red Cell Distribution Width 15.8 % (11.6-16.0); White Blood Cell 8.8 10^3/uL (4.4-10.8)
[2016-09-28 08:13] LABS: BUN/Creatinine Ratio 19.7; Calcium 8.5 mg/dL (8.5-10.1); Potassium 4.4 mmol/L (3.5-5.1)
[2016-09-28 09:24] VITALS: BP 131/75
[2016-09-28] MEDS: MULTIPLE VITAMIN TAB PO SCH (10:36)
[2016-09-28] MEDS: cefTRIAXone 1GM/50ML D5W 50 ML IV SCH (10:36)
[2016-09-28] MEDS: QUEtiapine FUMARATE 25 MG TAB PO SCH (10:37)
[2016-09-28] MEDS: glyBURIDE 2.5 MG TAB PO SCH (10:37)
[2016-09-28 11:55] VITALS: BP 145/73
[2016-09-28 16:40] VITALS: BP 145/78
[2016-09-28] MEDS: ACETAMINOPHEN 500 MG TAB PO PRN (20:30)
[2016-09-28] MEDS: INSULIN DETEMIR(LEVEMIR) 1unit/0.01ml Soln (100units/ml) SC SCH (21:55)
[2016-09-28] MEDS: ATORVASTATIN 20 MG TAB PO SCH (21:55)
[2016-09-28 22:00] VITALS: BP 120/59
[2016-09-29 05:00] VITALS: BP 129/65
[2016-09-29] MEDS: ACCU-CHEK COMFORT CURVE STRIP VI SCH ×2 (06:07→11:30)
[2016-09-29] MEDS: SODIUM CHLOR 0.9% PF (SALINE LOCK) 10ML VIAL IV SCH ×2 (06:07→14:00)
[2016-09-29] MEDS: GABAPENTIN 300 MG CAP PO SCH ×2 (06:07→14:00)
[2016-09-29] MEDS: InsuLIN REG 1unit/0.01ml Soln (100units/ml) SC SCH ×2 (06:14→11:30)
[2016-09-29 06:33] LABS: Basophils # (auto) 0.1 uL; Basophils % (auto) 0.8 % (0.0-2.0); Eosinophils # (auto) 0.4 uL; Eosinophils % (auto) 5.8 % (0.0-7.0); Hematocrit 36.4 % (41.0-53.0); Hemoglobin 12.4 g/dL (13.5-17.5); Lymphocytes # (auto) 2.4 uL; Lymphocytes % (auto) 30.5 % (10.0-50.0); Mean Corpuscular Hemoglobin 30.1 pg (28.0-32.0); Mean Corpuscular Hgb Conc. 34.2 g/dL (32.0-36.0); Mean Corpuscular Volume 88.1 fL (80.0-100.0); Mean Platelet Volume 9.4 fL (7.4-10.4); Monocytes # (auto) 0.9 uL; Monocytes % (auto) 11.9 % (0.0-12.0); Platelet Count (auto) 260 10^3/uL (140-450); Red Cell Distribution Width 15.8 % (11.6-16.0); White Blood Cell 7.8 10^3/uL (4.4-10.8)
[2016-09-29 06:59] LABS: Albumin 3.5 g/dL (3.4-5.0); Calcium 8.7 mg/dL (8.5-10.1); Potassium 4.6 mmol/L (3.5-5.1)
[2016-09-29 07:01] LABS: BUN/Creatinine Ratio 18.2
[2016-09-29 07:03] LABS: Bilirubin, Total 0.3 mg/dL (0.2-1.0)
[2016-09-29] MEDS: glyBURIDE 2.5 MG TAB PO SCH (08:31)
[2016-09-29 09:00] VITALS: BP 126/64
[2016-09-29] MEDS: MULTIPLE VITAMIN TAB PO SCH (09:50)
[2016-09-29] MEDS: QUEtiapine FUMARATE 25 MG TAB PO SCH (09:50)
[2016-09-29] MEDS: cefTRIAXone 1GM/50ML D5W 50 ML IV SCH (09:51)
[2016-09-29 12:10] VITALS: BP 126/64
== END 2016-09-29 15:38 | disposition home or self-care (01) | DRG 463 ==
LOC: ER 18:16 → OVERFLOW 18:17 → WEST WING 09-26 10:21
PROVIDERS: ADMIT Internal Medicine; ATTEND Internal Medicine
DX: N10 Acute pyelonephritis (principal); N17.0 Acute kidney failure with tubular necrosis; K57.30 Diverticulosis of large intestine without perforation or abscess without bleeding; E11.21 Type 2 diabetes mellitus with diabetic nephropathy; I12.9 Hypertensive chronic kidney disease with stage 1 through stage 4 chronic kidney disease, or unspecified chronic kidney disease; E78.5 Hyperlipidemia, unspecified; E11.22 Type 2 diabetes mellitus with diabetic chronic kidney disease; D64.9 Anemia, unspecified; F12.10 Cannabis abuse, uncomplicated; F15.10 Other stimulant abuse, uncomplicated; F17.210 Nicotine dependence, cigarettes, uncomplicated; T40.7X5A Adverse effect of cannabis (derivatives), initial encounter; N18.4 Chronic kidney disease, stage 4 (severe); Z59.0 Homelessness; Z82.3 Family history of stroke; Z83.3 Family history of diabetes mellitus; Z90.49 Acquired absence of other specified parts of digestive tract; Z80.9 Family history of malignant neoplasm, unspecified
CPT/HCPCS: 36415; 74176; 76775; 80048; 80053; 80307; 81001; 82306; 82570; 82962; 83036; 84100; 84156; 84300; 84550; 85025; 87086; 96374; 96375; J0696; J1815; J2405

== ENCOUNTER 2016-10-06 08:47 | Emergency (ER) | payer MEDICAID ==
[~2016-10-06] VITALS: Ht 177.8 cm; Wt 99.8 kg
[~2016-10-06 08:47] MED LIST changes: -GAB300C PO; +GABA-497 PO; -METF-316 PO; -PERCOT PO
[2016-10-06 09:33] LABS: Urine Bilirubin Negative (Negative); Urine Color Yellow (Yellow); Urine Glucose Normal (Normal); Urine Ketone Negative (Negative); Urine Nitrite Negative (Negative); Urine RBC 3 /hpf (0 - 3); Urine Urobilinogen Normal (Negative); Urine pH 5.5 (5.0-8.0)
[2016-10-06 09:38] LABS: Basophils # (auto) 0 uL; Basophils % (auto) 0.6 % (0.0-2.0); Eosinophils # (auto) 0.3 uL; Eosinophils % (auto) 4.8 % (0.0-7.0); Hemoglobin 11.5 g/dL (13.5-17.5); Lymphocytes # (auto) 1.3 uL; Lymphocytes % (auto) 22.2 % (10.0-50.0); Mean Corpuscular Hemoglobin 30.3 pg (28.0-32.0); Mean Corpuscular Hgb Conc. 34.8 g/dL (32.0-36.0); Mean Corpuscular Volume 86.9 fL (80.0-100.0); Mean Platelet Volume 7.6 fL (7.4-10.4); Monocytes # (auto) 0.7 uL; Monocytes % (auto) 11.9 % (0.0-12.0); Neutrophils # (auto) 3.5 uL; Neutrophils % (auto) 60.5 % (37.0-80.0); Platelet Count (auto) 275 10^3/uL (140-450); Red Cell Distribution Width 15.4 % (11.6-16.0); White Blood Cell 5.8 10^3/uL (4.4-10.8)
[2016-10-06 09:38] LABS: Urine Blood 1+ /uL (Negative)
[2016-10-06 10:10] LABS: Albumin 3.8 g/dL (3.4-5.0); BUN/Creatinine Ratio 13.7; Bilirubin, Total 0.3 mg/dL (0.2-1.0); Calcium 8.4 mg/dL (8.5-10.1); Potassium 3.8 mmol/L (3.5-5.1); Total Protein 7.7 g/dL (6.4-8.2)
[2016-10-06] MEDS ORDERED: ACETAMINOPHEN 325 MG TAB PO ONE (10:30)
[2016-10-06 10:41] VITALS: BP 146/85
== END 2016-10-06 11:24 | disposition home or self-care (01) ==
LOC: ER 08:47
DX: N39.0 Urinary tract infection, site not specified (principal); N28.9 Disorder of kidney and ureter, unspecified; E11.22 Type 2 diabetes mellitus with diabetic chronic kidney disease; I12.9 Hypertensive chronic kidney disease with stage 1 through stage 4 chronic kidney disease, or unspecified chronic kidney disease; N18.9 Chronic kidney disease, unspecified; E78.5 Hyperlipidemia, unspecified; F17.210 Nicotine dependence, cigarettes, uncomplicated; F12.10 Cannabis abuse, uncomplicated; F15.10 Other stimulant abuse, uncomplicated; Z59.0 Homelessness
CPT/HCPCS: 36415; 80053; 80307; 81001; 82962; 85025

== ENCOUNTER 2016-10-07 08:42 | Emergency (ER) | payer MEDICAID ==
[~2016-10-07] VITALS: Ht 177.8 cm; Wt 99.8 kg
[~2016-10-07 08:42] MED LIST changes: +GAB300C PO; -GABA-497 PO
[2016-10-07 09:36] LABS: Urine Bilirubin Negative (Negative); Urine Blood TRACE /uL (Negative); Urine Color Yellow (Yellow); Urine Glucose Normal (Normal); Urine Ketone Negative (Negative); Urine Nitrite Negative (Negative); Urine RBC 3 /hpf (0 - 3); Urine Squamous Epithelial Cell FEW /hpf (<5); Urine Urobilinogen Normal (Negative); Urine pH 5.5 (5.0-8.0)
[2016-10-07 09:42] LABS: Basophils # (auto) 0 uL; Basophils % (auto) 0.5 % (0.0-2.0); Eosinophils # (auto) 0.2 uL; Eosinophils % (auto) 3.7 % (0.0-7.0); Hematocrit 35.8 % (41.0-53.0); Hemoglobin 12.1 g/dL (13.5-17.5); Lymphocytes # (auto) 1.3 uL; Mean Corpuscular Hemoglobin 30.1 pg (28.0-32.0); Mean Corpuscular Hgb Conc. 33.9 g/dL (32.0-36.0); Mean Corpuscular Volume 88.8 fL (80.0-100.0); Mean Platelet Volume 8.4 fL (7.4-10.4); Monocytes # (auto) 0.6 uL; Monocytes % (auto) 10.4 % (0.0-12.0); Neutrophils % (auto) 64.4 % (37.0-80.0); Platelet Count (auto) 267 10^3/uL (140-450); Red Cell Distribution Width 15.1 % (11.6-16.0); White Blood Cell 6.2 10^3/uL (4.4-10.8)
[2016-10-07] MEDS ORDERED: SODIUM CHLORIDE 0.9% 1,000 ML IVB ONE (09:48)
[2016-10-07 10:03] LABS: Albumin 3.7 g/dL (3.4-5.0); Bilirubin, Total 0.3 mg/dL (0.2-1.0); Calcium 8.4 mg/dL (8.5-10.1); Total Protein 7.8 g/dL (6.4-8.2)
[2016-10-07 10:09] LABS: Magnesium 2.2 mg/dL (1.6-2.6)
[2016-10-07 11:42] VITALS: BP 178/105
== END 2016-10-07 14:03 | disposition home or self-care (01) ==
LOC: ER 08:42
DX: E11.22 Type 2 diabetes mellitus with diabetic chronic kidney disease (principal); E11.21 Type 2 diabetes mellitus with diabetic nephropathy; E78.5 Hyperlipidemia, unspecified; I12.9 Hypertensive chronic kidney disease with stage 1 through stage 4 chronic kidney disease, or unspecified chronic kidney disease; N18.9 Chronic kidney disease, unspecified; F17.210 Nicotine dependence, cigarettes, uncomplicated; F12.10 Cannabis abuse, uncomplicated; F15.10 Other stimulant abuse, uncomplicated; Z59.0 Homelessness
CPT/HCPCS: 36415; 80053; 80307; 81001; 83690; 83735; 84443; 85025; 96360; 99284; J7030

== ENCOUNTER 2016-10-18 10:25 | Emergency (ER) | payer MEDICAID ==
[~2016-10-18] VITALS: Ht 177.8 cm; Wt 99.8 kg
[~2016-10-18 10:25] MED LIST changes: -GAB300C PO; +GABA-497 PO
[2016-10-18 10:48] VITALS: BP 171/99
[2016-10-18] MEDS ORDERED: ACETAMINOPHEN 325 MG TAB PO ONE (11:00)
== END 2016-10-18 11:25 | disposition left against medical advice (07) ==
LOC: ER 10:26
DX: R10.11 Right upper quadrant pain (principal); R19.7 Diarrhea, unspecified; R06.02 Shortness of breath; F15.10 Other stimulant abuse, uncomplicated; E11.22 Type 2 diabetes mellitus with diabetic chronic kidney disease; N18.9 Chronic kidney disease, unspecified; E78.5 Hyperlipidemia, unspecified; I12.9 Hypertensive chronic kidney disease with stage 1 through stage 4 chronic kidney disease, or unspecified chronic kidney disease; Z90.49 Acquired absence of other specified parts of digestive tract; F12.10 Cannabis abuse, uncomplicated; F17.210 Nicotine dependence, cigarettes, uncomplicated; Z59.0 Homelessness

== ENCOUNTER 2016-10-23 05:38 | Inpatient (IN) | payer MEDICAID ==
[~2016-10-23] VITALS: Ht 177.8 cm; Wt 97.8 kg
[2016-10-23] MEDS ORDERED: cloNIDine HCL 0.1 MG TAB ONE (05:55)
[2016-10-23] MEDS ORDERED: cloNIDine HCL 0.1 MG TAB PO ONE (06:15)
[2016-10-23 07:43] LABS: Basophils # (auto) 0 uL; Basophils % (auto) 0.3 % (0.0-2.0); Eosinophils # (auto) 0.3 uL; Eosinophils % (auto) 3.1 % (0.0-7.0); Hematocrit 36.2 % (41.0-53.0); Hemoglobin 12.3 g/dL (13.5-17.5); Lymphocytes # (auto) 1.6 uL; Mean Corpuscular Hemoglobin 30.2 pg (28.0-32.0); Mean Corpuscular Hgb Conc. 33.9 g/dL (32.0-36.0); Mean Corpuscular Volume 89.1 fL (80.0-100.0); Mean Platelet Volume 9.4 fL (7.4-10.4); Monocytes # (auto) 0.6 uL; Monocytes % (auto) 6.3 % (0.0-12.0); Neutrophils # (auto) 6.9 uL; Neutrophils % (auto) 73.3 % (37.0-80.0); Platelet Count (auto) 277 10^3/uL (140-450); Red Cell Distribution Width 14.5 % (11.6-16.0); White Blood Cell 9.4 10^3/uL (4.4-10.8)
[2016-10-23 07:58] LABS: Urine Bilirubin Negative (Negative); Urine Blood Negative /uL (Negative); Urine Color Yellow (Yellow); Urine Glucose Normal (Normal); Urine Ketone Negative (Negative); Urine Nitrite Negative (Negative); Urine RBC 1 /hpf (0 - 3); Urine Urobilinogen Normal (Negative)
[2016-10-23 08:12] LABS: Albumin 3.3 g/dL (3.4-5.0); Bilirubin, Total 0.3 mg/dL (0.2-1.0); Calcium 8.2 mg/dL (8.5-10.1); Magnesium 2.3 mg/dL (1.6-2.6); Total Protein 6.8 g/dL (6.4-8.2)
[2016-10-23 08:31] LABS: B-Type Natriuretic Peptide 825.66 pg/mL (0-100); Temperature: 22.5 C (20.0-25.0)
[2016-10-23] MEDS ORDERED: ASPirin 81 mg TAB PO ONE (09:45)
[2016-10-23] MEDS ORDERED: ENOXAPARIN SOD 100 MG/1 ML SYRINGE SC ONE (11:45)
[2016-10-23] MEDS ORDERED: FUROSEMIDE 20 MG/2 ML VIAL IV ONE (11:45)
[2016-10-23] MEDS ORDERED: PROMETHAZINE HCL 25 MG/ML 1ML IV PRN (12:00)
[2016-10-23] MEDS ORDERED: NITROGLYCERIN 0.4 MG SL TAB SL PRN (12:00)
[2016-10-23] MEDS ORDERED: HYDROcodone-ACET 5/325MG TAB PO PRN (12:00)
[2016-10-23] MEDS ORDERED: DEXTROSE (50%) 50ML SYRG IV PRN (12:00)
[2016-10-23] MEDS ORDERED: LORazepam 0.5 MG TAB PO PRN (12:00)
[2016-10-23] MEDS ORDERED: MORPHINE SULF INJ 2 MG/ML SYRINGE 1ML IV PRN (12:00)
[2016-10-23] MEDS ORDERED: TEMAZEPAM 15 MG CAP PO PRN (12:00)
[2016-10-23] MEDS ORDERED: LACTULOSE 20Gm/30ML SOLN PO PRN (12:00)
[2016-10-23] MEDS ORDERED: ACETAMINOPHEN 500 MG TAB PO PRN (12:00)
[2016-10-23] MEDS: NITROGLYCERIN 0.2MG/HR TOPICAL PATCH TD SCH (14:07)
[2016-10-23] MEDS: GABAPENTIN 300 MG CAP PO SCH ×2 (14:08→21:47)
[2016-10-23] MEDS: ACCU-CHEK COMFORT CURVE STRIP VI SCH ×2 (17:14→21:50)
[2016-10-23] MEDS: InsuLIN REG 1unit/0.01ml Soln (100units/ml) SC SCH ×2 (17:14→22:40)
[2016-10-23 18:05] VITALS: BP 146/93
[2016-10-23] MEDS: ALBUTEROL SULF 2.5 MG/0.5ML(0.5%) NEB SOLN NEB PRN (19:28)
[2016-10-23] MEDS: MORPHINE SULF INJ 2 MG/ML SYRINGE 1ML IV PRN (21:00)
[2016-10-23] MEDS: PRAVASTATIN SODIUM 20 MG TAB PO SCH (21:46)
[2016-10-23] MEDS: metroNIDAZOLE 500 MG TAB PO SCH (21:46)
[2016-10-23] MEDS: LISINOPRIL 20 MG TAB PO SCH (21:47)
[2016-10-23 22:00] VITALS: BP 156/80
[2016-10-24 03:13] VITALS: BP 156/80
[2016-10-24] MEDS: MORPHINE SULF INJ 2 MG/ML SYRINGE 1ML IV PRN ×5 (03:18→22:06)
[2016-10-24 05:00] VITALS: BP 146/90
[2016-10-24] MEDS: metroNIDAZOLE 500 MG TAB PO SCH ×3 (06:00→22:02)
[2016-10-24 06:11] LABS: Basophils # (auto) 0 uL; Basophils % (auto) 0.4 % (0.0-2.0); Eosinophils # (auto) 0.3 uL; Eosinophils % (auto) 3.6 % (0.0-7.0); Hematocrit 37.2 % (41.0-53.0); Hemoglobin 12.8 g/dL (13.5-17.5); Lymphocytes # (auto) 1.9 uL; Lymphocytes % (auto) 23.4 % (10.0-50.0); Mean Corpuscular Hemoglobin 30.1 pg (28.0-32.0); Mean Corpuscular Hgb Conc. 34.3 g/dL (32.0-36.0); Mean Corpuscular Volume 87.9 fL (80.0-100.0); Monocytes # (auto) 0.5 uL; Monocytes % (auto) 6.4 % (0.0-12.0); Neutrophils # (auto) 5.5 uL; Neutrophils % (auto) 66.2 % (37.0-80.0); Platelet Count (auto) 253 10^3/uL (140-450); Red Cell Distribution Width 14.6 % (11.6-16.0); White Blood Cell 8.3 10^3/uL (4.4-10.8)
[2016-10-24 06:48] LABS: BUN/Creatinine Ratio 11.9; Bilirubin, Total 0.4 mg/dL (0.2-1.0); Calcium 7.9 mg/dL (8.5-10.1); Potassium 3.7 mmol/L (3.5-5.1); Total Protein 6.5 g/dL (6.4-8.2)
[2016-10-24] MEDS: ACCU-CHEK COMFORT CURVE STRIP VI SCH ×4 (06:59→22:02)
[2016-10-24 07:13] LABS: B-Type Natriuretic Peptide 519.45 pg/mL (0-100); Temperature: 22.1 C (20.0-25.0)
[2016-10-24] MEDS: InsuLIN REG 1unit/0.01ml Soln (100units/ml) SC SCH ×4 (07:27→22:13)
[2016-10-24 09:30] VITALS: BP 156/86
[2016-10-24] MEDS: LISINOPRIL 20 MG TAB PO SCH ×2 (09:40→22:01)
[2016-10-24] MEDS: FUROSEMIDE 40 MG/4 ML VIAL IV SCH (09:40)
[2016-10-24] MEDS: GABAPENTIN 300 MG CAP PO SCH ×2 (09:40→22:00)
[2016-10-24] MEDS: POTASSIUM CHL 20 Meq TABLET PO SCH (09:40)
[2016-10-24] MEDS: ENOXAPARIN SOD 40 MG/0.4 ML SYRINGE SC SCH (09:41)
[2016-10-24] MEDS: glyBURIDE 2.5 MG TAB PO SCH (09:41)
[2016-10-24] MEDS: ASPirin 81 mg TAB PO SCH (09:41)
[2016-10-24] MEDS: NITROGLYCERIN 0.2MG/HR TOPICAL PATCH TD SCH (09:42)
[2016-10-24 17:45] VITALS: BP 132/82
[2016-10-24 20:00] VITALS: BP 157/94
[2016-10-24] MEDS: PRAVASTATIN SODIUM 20 MG TAB PO SCH (22:00)
[2016-10-25] VITALS (7 sets, daily range): BP systolic 132–157; BP diastolic 75–94
[2016-10-25] MEDS: MORPHINE SULF INJ 2 MG/ML SYRINGE 1ML IV PRN ×5 (03:52→22:05)
[2016-10-25 05:58] LABS: Basophils # (auto) 0 uL; Basophils % (auto) 0.5 % (0.0-2.0); Eosinophils # (auto) 0.3 uL; Eosinophils % (auto) 4.3 % (0.0-7.0); Hematocrit 35.4 % (41.0-53.0); Hemoglobin 12.1 g/dL (13.5-17.5); Lymphocytes # (auto) 2.2 uL; Lymphocytes % (auto) 30.6 % (10.0-50.0); Mean Corpuscular Hemoglobin 30.1 pg (28.0-32.0); Mean Corpuscular Volume 88.6 fL (80.0-100.0); Mean Platelet Volume 8.7 fL (7.4-10.4); Monocytes # (auto) 0.6 uL; Monocytes % (auto) 8.2 % (0.0-12.0); Neutrophils % (auto) 56.4 % (37.0-80.0); Platelet Count (auto) 252 10^3/uL (140-450); Red Cell Distribution Width 14.4 % (11.6-16.0); White Blood Cell 7.1 10^3/uL (4.4-10.8)
[2016-10-25] MEDS: metroNIDAZOLE 500 MG TAB PO SCH ×3 (06:02→22:04)
[2016-10-25 06:08] LABS: Calcium 8.1 mg/dL (8.5-10.1); Potassium 3.9 mmol/L (3.5-5.1)
[2016-10-25] MEDS: ACCU-CHEK COMFORT CURVE STRIP VI SCH ×4 (06:09→22:05)
[2016-10-25] MEDS: InsuLIN REG 1unit/0.01ml Soln (100units/ml) SC SCH ×4 (06:09→22:00)
[2016-10-25 06:10] LABS: BUN/Creatinine Ratio 16.3
[2016-10-25] MEDS: GABAPENTIN 300 MG CAP PO SCH ×2 (08:45→22:04)
[2016-10-25] MEDS: ENOXAPARIN SOD 40 MG/0.4 ML SYRINGE SC SCH (08:45)
[2016-10-25] MEDS: LISINOPRIL 20 MG TAB PO SCH ×2 (09:00→22:12)
[2016-10-25] MEDS: NITROGLYCERIN 0.2MG/HR TOPICAL PATCH TD SCH (09:00)
[2016-10-25] MEDS: ASPirin 81 mg TAB PO SCH (09:01)
[2016-10-25] MEDS: glyBURIDE 2.5 MG TAB PO SCH (09:01)
[2016-10-25] MEDS: POTASSIUM CHL 20 Meq TABLET PO SCH (09:01)
[2016-10-25] MEDS: FUROSEMIDE 40 MG/4 ML VIAL IV SCH (09:01)
[2016-10-25] MEDS ORDERED: ASPI81CH43 PO (11:02)
[2016-10-25] MEDS: PRAVASTATIN SODIUM 20 MG TAB PO SCH (22:04)
[2016-10-25] MEDS: ALBUTEROL SULF 2.5 MG/0.5ML(0.5%) NEB SOLN NEB PRN (22:34)
[2016-10-26] MEDS: MORPHINE SULF INJ 2 MG/ML SYRINGE 1ML IV PRN ×2 (03:42→10:40)
[2016-10-26 05:27] VITALS: BP 133/90
[2016-10-26] MEDS: metroNIDAZOLE 500 MG TAB PO SCH ×2 (06:15→14:51)
[2016-10-26] MEDS: InsuLIN REG 1unit/0.01ml Soln (100units/ml) SC SCH ×2 (06:19→11:30)
[2016-10-26] MEDS: ACCU-CHEK COMFORT CURVE STRIP VI SCH ×2 (06:19→12:43)
[2016-10-26 08:00] VITALS: BP 147/83
[2016-10-26 08:24] VITALS: BP 147/83
[2016-10-26] MEDS: GABAPENTIN 300 MG CAP PO SCH (09:57)
[2016-10-26] MEDS: POTASSIUM CHL 20 Meq TABLET PO SCH (09:57)
[2016-10-26] MEDS: FUROSEMIDE 40 MG/4 ML VIAL IV SCH (09:57)
[2016-10-26] MEDS: ASPirin 81 mg TAB PO SCH (09:57)
[2016-10-26] MEDS: glyBURIDE 2.5 MG TAB PO SCH (09:57)
[2016-10-26] MEDS: ENOXAPARIN SOD 40 MG/0.4 ML SYRINGE SC SCH (09:58)
[2016-10-26] MEDS: NITROGLYCERIN 0.2MG/HR TOPICAL PATCH TD SCH (09:58)
[2016-10-26] MEDS: LISINOPRIL 20 MG TAB PO SCH (09:58)
[2016-10-26 12:14] LABS: Basophils # (auto) 0 uL; Basophils % (auto) 0.6 % (0.0-2.0); Eosinophils # (auto) 0.3 uL; Hematocrit 35.4 % (41.0-53.0); Hemoglobin 12.4 g/dL (13.5-17.5); Lymphocytes # (auto) 2.2 uL; Lymphocytes % (auto) 25.8 % (10.0-50.0); Mean Corpuscular Hemoglobin 30.6 pg (28.0-32.0); Mean Corpuscular Volume 87.5 fL (80.0-100.0); Mean Platelet Volume 9.6 fL (7.4-10.4); Monocytes # (auto) 0.6 uL; Monocytes % (auto) 7.6 % (0.0-12.0); Neutrophils # (auto) 5.4 uL; Platelet Count (auto) 284 10^3/uL (140-450); Red Cell Distribution Width 14.5 % (11.6-16.0); White Blood Cell 8.5 10^3/uL (4.4-10.8)
[2016-10-26] MEDS: ALBUTEROL SULF 2.5 MG/0.5ML(0.5%) NEB SOLN NEB PRN (12:18)
[2016-10-26 12:31] VITALS: BP 123/78
[2016-10-26 12:42] LABS: BUN/Creatinine Ratio 18.8; Calcium 8.3 mg/dL (8.5-10.1); Potassium 4.5 mmol/L (3.5-5.1)
[2016-10-26 14:32] VITALS: BP 147/83
== END 2016-10-26 17:21 | disposition left against medical advice (07) | DRG 190 ==
LOC: ER 05:38 → TELE 05:39 → TELE-EAST 18:31
PROVIDERS: ADMIT Internal Medicine; ATTEND Nurse Practitioner Acute Care
DX: I21.4 Non-ST elevation (NSTEMI) myocardial infarction (principal); I50.43 Acute on chronic combined systolic (congestive) and diastolic (congestive) heart failure; E11.21 Type 2 diabetes mellitus with diabetic nephropathy; E11.42 Type 2 diabetes mellitus with diabetic polyneuropathy; I50.42 Chronic combined systolic (congestive) and diastolic (congestive) heart failure; I13.0 Hypertensive heart and chronic kidney disease with heart failure and stage 1 through stage 4 chronic kidney disease, or unspecified chronic kidney disease; F15.90 Other stimulant use, unspecified, uncomplicated; D64.9 Anemia, unspecified; F19.10 Other psychoactive substance abuse, uncomplicated; E78.5 Hyperlipidemia, unspecified; N18.9 Chronic kidney disease, unspecified; E11.22 Type 2 diabetes mellitus with diabetic chronic kidney disease; F17.210 Nicotine dependence, cigarettes, uncomplicated; Z86.73 Personal history of transient ischemic attack (TIA), and cerebral infarction without residual deficits; Z59.0 Homelessness; Z83.3 Family history of diabetes mellitus; Z76.5 Malingerer [conscious simulation]; Z90.89 Acquired absence of other organs; Z80.9 Family history of malignant neoplasm, unspecified; Z82.3 Family history of stroke
CPT/HCPCS: 36415; 70450; 71020; 80048; 80053; 80061; 80307; 81001; 82550; 82962; 83036; 83735; 83880; 84443; 84484; 85025; 85379; 85652; 86141; 87081; 93005; 93306; 94640; 96372; 96374; J1815

== ENCOUNTER 2016-11-01 04:24 | Emergency (ER) | payer MEDICAID ==
[~2016-11-01] VITALS: Ht 177.8 cm; Wt 96.2 kg
[~2016-11-01 04:24] MED LIST changes: +ASPI81CH43 PO
[2016-11-01 05:03] VITALS: BP 163/108
[2016-11-01 07:39] LABS: Basophils # (auto) 0 uL; Basophils % (auto) 0.6 % (0.0-2.0); CONDITION AutoValidated; Eosinophils # (auto) 0.3 uL; Eosinophils % (auto) 3.6 % (0.0-7.0); Hematocrit 37.7 % (41.0-53.0); Lymphocytes % (auto) 27.9 % (10.0-50.0); Mean Corpuscular Hemoglobin 30.6 pg (28.0-32.0); Mean Corpuscular Hgb Conc. 34.5 g/dL (32.0-36.0); Mean Corpuscular Volume 88.6 fL (80.0-100.0); Mean Platelet Volume 8.6 fL (7.4-10.4); Monocytes # (auto) 0.6 uL; Monocytes % (auto) 8.2 % (0.0-12.0); Neutrophils # (auto) 4.3 uL; Neutrophils % (auto) 59.7 % (37.0-80.0); Platelet Count (auto) 272 10^3/uL (140-450); Red Cell Distribution Width 14.4 % (11.6-16.0); White Blood Cell 7.2 10^3/uL (4.4-10.8)
[2016-11-01 08:05] LABS: Albumin 3.7 g/dL (3.4-5.0); Anion Gap 9 (5-15); Blood Urea Nitrogen 31 mg/dL (7-18); Calcium 8.2 mg/dL (8.5-10.1); Carbon Dioxide 22 mmol/L (21-32); Chloride 112 mmol/L (98-107); Glucose 116 mg/dL (74-106); Magnesium 2.2 mg/dL (1.6-2.6); Potassium 3.9 mmol/L (3.5-5.1); Sodium 143 mmol/L (136-145)
[2016-11-01 08:08] LABS: Aspartate Aminotransferase 17 U/L (15-37); BUN/Creatinine Ratio 11.7; GFR African American 33 mL/min; GFR Non-African American 28 mL/min
[2016-11-01 08:13] LABS: Alkaline Phosphatase 68 U/L (45-117); Bilirubin, Total 0.2 mg/dL (0.2-1.0); Total Protein 7.5 g/dL (6.4-8.2)
[2016-11-01 08:45] LABS: Acetaminophen < 2.0 ug/mL (10-30); Salicylate 4.1 mg/dL (2.8-20.0)
== END 2016-11-01 07:29 | disposition left against medical advice (07) ==
LOC: ER 04:24
DX: R07.89 Other chest pain (principal); Z53.21 Procedure and treatment not carried out due to patient leaving prior to being seen by health care provider
CPT/HCPCS: 36415; 71020; 80053; 80307; 80320; 80329; 83735; 84484; 85025; 93005

== ENCOUNTER 2016-11-17 04:53 | Emergency (ER) | payer MEDICAID ==
[~2016-11-17] VITALS: Ht 177.8 cm; Wt 96.2 kg
[2016-11-17 07:56] LABS: Basophils # (auto) 0 uL; Basophils % (auto) 0.4 % (0.0-2.0); CONDITION Y; Eosinophils # (auto) 0.3 uL; Eosinophils % (auto) 2.6 % (0.0-7.0); Hematocrit 42.1 % (41.0-53.0); Hemoglobin 14.6 g/dL (13.5-17.5); Lymphocytes # (auto) 1.7 uL; Lymphocytes % (auto) 16.5 % (10.0-50.0); Mean Corpuscular Hemoglobin 30.6 pg (28.0-32.0); Mean Corpuscular Hgb Conc. 34.6 g/dL (32.0-36.0); Mean Corpuscular Volume 88.5 fL (80.0-100.0); Mean Platelet Volume 8.2 fL (7.4-10.4); Monocytes # (auto) 0.5 uL; Neutrophils % (auto) 75.5 % (37.0-80.0); Platelet Count (auto) 312 10^3/uL (140-450); Red Cell Distribution Width 14.4 % (11.6-16.0); White Blood Cell 10.6 10^3/uL (4.4-10.8)
[2016-11-17 08:22] LABS: Albumin 3.8 g/dL (3.4-5.0); BUN/Creatinine Ratio 9.1; Calcium 8.7 mg/dL (8.5-10.1); Potassium 3.8 mmol/L (3.5-5.1)
[2016-11-17 08:24] LABS: Bilirubin, Total 0.3 mg/dL (0.2-1.0); Total Protein 8.8 g/dL (6.4-8.2)
[2016-11-17 11:45] VITALS: BP 148/86
== END 2016-11-17 12:11 | disposition home or self-care (01) ==
LOC: ER 04:53
DX: E11.65 Type 2 diabetes mellitus with hyperglycemia (principal); F15.10 Other stimulant abuse, uncomplicated; I12.9 Hypertensive chronic kidney disease with stage 1 through stage 4 chronic kidney disease, or unspecified chronic kidney disease; E11.22 Type 2 diabetes mellitus with diabetic chronic kidney disease; N18.9 Chronic kidney disease, unspecified; F17.210 Nicotine dependence, cigarettes, uncomplicated; F12.10 Cannabis abuse, uncomplicated
CPT/HCPCS: 36415; 80053; 80307; 85025; 99284; J7030

== ENCOUNTER 2016-11-25 05:12 | Inpatient (IN) | payer MEDICAID ==
[~2016-11-25] VITALS: Ht 177.8 cm; Wt 111.0 kg
[2016-11-25] MEDS ORDERED: SODIUM CHLORIDE 0.9% 1,000 ML IV ONE (06:52)
[2016-11-25 09:43] LABS: Basophils # (auto) 0 uL; Basophils % (auto) 0.4 % (0.0-2.0); CONDITION Y; Eosinophils # (auto) 0.3 uL; Hematocrit 36.1 % (41.0-53.0); Hemoglobin 12.5 g/dL (13.5-17.5); Lymphocytes % (auto) 20.2 % (10.0-50.0); Mean Corpuscular Hgb Conc. 34.6 g/dL (32.0-36.0); Mean Corpuscular Volume 89.7 fL (80.0-100.0); Mean Platelet Volume 8.8 fL (7.4-10.4); Monocytes # (auto) 0.6 uL; Monocytes % (auto) 5.6 % (0.0-12.0); Neutrophils # (auto) 7.1 uL; Neutrophils % (auto) 70.8 % (37.0-80.0); Platelet Count (auto) 282 10^3/uL (140-450); Red Cell Distribution Width 15.3 % (11.6-16.0)
[2016-11-25 09:58] LABS: Albumin 2.9 g/dL (3.4-5.0); BUN/Creatinine Ratio 9.7; Bilirubin, Total 0.3 mg/dL (0.2-1.0); Magnesium 2.3 mg/dL (1.6-2.6); Potassium 3.6 mmol/L (3.5-5.1); Total Protein 6.5 g/dL (6.4-8.2)
[2016-11-25] MEDS ORDERED: METOPROLOL TARTRATE 1MG/1ML-5ML VIAL IV ONE (10:45)
[2016-11-25] MEDS ORDERED: cefTRIAXone 1GM/50ML D5W 50 ML IV ONE (11:00)
[2016-11-25] MEDS ORDERED: LACTULOSE 20Gm/30ML SOLN PO PRN (11:15)
[2016-11-25] MEDS ORDERED: ONDANSETRON HCL 4 MG/2 ML VIAL IV PRN (11:15)
[2016-11-25] MEDS ORDERED: ACETAMINOPHEN 500 MG TAB PO PRN (11:15)
[2016-11-25] MEDS ORDERED: NITROGLYCERIN 0.4 MG SL TAB SL PRN (11:15)
[2016-11-25] MEDS ORDERED: LORazepam 0.5 MG TAB PO PRN (11:15)
[2016-11-25] MEDS ORDERED: TEMAZEPAM 15 MG CAP PO PRN (11:15)
[2016-11-25] MEDS ORDERED: DEXTROSE (50%) 50ML SYRG IV PRN ×2 (11:30)
[2016-11-25] MEDS ORDERED: LEVOFLOXACIN 500MG 100 ML IV ONE (11:30)
[2016-11-25] MEDS: MORPHINE SULF INJ 2 MG/ML SYRINGE 1ML IV PRN ×3 (12:05→21:06)
[2016-11-25 12:09] LABS: Urine Bilirubin Negative (Negative); Urine Color Yellow (Yellow); Urine Glucose Normal (Normal); Urine Ketone Negative (Negative); Urine Nitrite Negative (Negative); Urine RBC 5 /hpf (0 - 3); Urine Squamous Epithelial Cell FEW /hpf (<5); Urine Urobilinogen Normal (Negative)
[2016-11-25 12:14] LABS: Urine Blood 1+ /uL (Negative)
[2016-11-25] MEDS: ACCU-CHEK COMFORT CURVE STRIP VI SCH ×3 (12:15→21:54)
[2016-11-25] MEDS: InsuLIN REG 1unit/0.01ml Soln (100units/ml) SC SCH ×3 (12:20→21:55)
[2016-11-25 13:40] LABS: B-Type Natriuretic Peptide 1038.09 pg/mL (0-100)
[2016-11-25] MEDS: GABAPENTIN 300 MG CAP PO SCH ×2 (14:00→21:52)
[2016-11-25 14:09] LABS: Temperature: 22.6 C (20.0-25.0)
[2016-11-25] MEDS: HYDROcodone-ACET 5/325MG TAB PO PRN (14:56)
[2016-11-25] MEDS: LABETALOL HCL 5 MG/ML 4ML SYRINGE IV PRN ×2 (16:53→23:27)
[2016-11-25 20:00] VITALS: BP 155/94
[2016-11-25] MEDS: LABETALOL HCL 200 MG TAB PO SCH (20:07)
[2016-11-25] MEDS: ATORVASTATIN 20 MG TAB PO SCH (21:53)
[2016-11-25] MEDS: BENAZEPRIL HCL 10 MG TAB PO SCH (21:54)
[2016-11-25] MEDS: cloNIDine HCL 0.1 MG TAB PO SCH (21:54)
[2016-11-25 21:58] VITALS: BP 155/94
[2016-11-25] MEDS ORDERED: METOPROLOL TARTRATE 25 MG TAB PO SCH (22:00)
[2016-11-26] VITALS (7 sets, daily range): BP systolic 118–143; BP diastolic 58–80
[2016-11-26] MEDS: MORPHINE SULF INJ 2 MG/ML SYRINGE 1ML IV PRN ×5 (01:28→22:12)
[2016-11-26] MEDS: LABETALOL HCL 200 MG TAB PO SCH ×3 (03:44→19:36)
[2016-11-26] MEDS: GABAPENTIN 300 MG CAP PO SCH ×3 (06:02→22:11)
[2016-11-26] MEDS: cloNIDine HCL 0.1 MG TAB PO SCH ×3 (06:03→22:11)
[2016-11-26] MEDS: ACCU-CHEK COMFORT CURVE STRIP VI SCH ×4 (06:36→21:57)
[2016-11-26] MEDS: InsuLIN REG 1unit/0.01ml Soln (100units/ml) SC SCH ×4 (06:37→21:57)
[2016-11-26 08:05] LABS: Basophils # (auto) 0 uL; Basophils % (auto) 0.2 % (0.0-2.0); CONDITION Y; Eosinophils # (auto) 0.3 uL; Eosinophils % (auto) 3.2 % (0.0-7.0); Hematocrit 33.6 % (41.0-53.0); Hemoglobin 11.6 g/dL (13.5-17.5); Lymphocytes # (auto) 1.5 uL; Lymphocytes % (auto) 16.5 % (10.0-50.0); Mean Corpuscular Hemoglobin 31.1 pg (28.0-32.0); Mean Corpuscular Hgb Conc. 34.5 g/dL (32.0-36.0); Mean Corpuscular Volume 90.2 fL (80.0-100.0); Mean Platelet Volume 8.1 fL (7.4-10.4); Monocytes # (auto) 0.6 uL; Monocytes % (auto) 6.7 % (0.0-12.0); Neutrophils # (auto) 6.6 uL; Neutrophils % (auto) 73.4 % (37.0-80.0); Platelet Count (auto) 247 10^3/uL (140-450); Red Cell Distribution Width 15.7 % (11.6-16.0); White Blood Cell 9.1 10^3/uL (4.4-10.8)
[2016-11-26 08:19] LABS: INR 1.03 (0.9-1.15); Partial Thromboplastin Time 29.9 sec (22.64-33.71); Prothrombin Time 11.2 sec (9.37-12.3)
[2016-11-26 08:38] LABS: Albumin 2.8 g/dL (3.4-5.0); BUN/Creatinine Ratio 10.2; Bilirubin, Total 0.3 mg/dL (0.2-1.0); Potassium 3.9 mmol/L (3.5-5.1); Total Protein 6.1 g/dL (6.4-8.2)
[2016-11-26] MEDS: ASPirin 81 mg TAB PO SCH (09:41)
[2016-11-26] MEDS: BENAZEPRIL HCL 10 MG TAB PO SCH ×2 (09:42→22:10)
[2016-11-26] MEDS: ENOXAPARIN SOD 40 MG/0.4 ML SYRINGE SC SCH (09:43)
[2016-11-26] MEDS ORDERED: LEVOFLOXACIN 500MG 100 ML IV SCH (10:00)
[2016-11-26] MEDS ORDERED: VANCOMYCIN PER PHARMACY 0 MG IV SCH (13:30)
[2016-11-26] MEDS ORDERED: SODIUM CHLORIDE 0.9% 1,000 ML IV SCH (15:15)
[2016-11-26] MEDS: SODIUM CHLORIDE 0.9% 1,000 ML IV SCH (15:17)
[2016-11-26] MEDS: VANCOMYCIN 1,250 MG in D5W 5% 250 ML IV SCH (15:17)
[2016-11-26] MEDS: HYDROcodone-ACET 5/325MG TAB PO PRN (19:37)
[2016-11-26] MEDS: ATORVASTATIN 20 MG TAB PO SCH (22:10)
[2016-11-27] VITALS (7 sets, daily range): BP systolic 121–127; BP diastolic 73–81
[2016-11-27] MEDS: HYDROcodone-ACET 5/325MG TAB PO PRN ×3 (02:03→10:31)
[2016-11-27] MEDS: LABETALOL HCL 200 MG TAB PO SCH ×3 (03:46→20:20)
[2016-11-27] MEDS: MORPHINE SULF INJ 2 MG/ML SYRINGE 1ML IV PRN ×5 (03:47→23:19)
[2016-11-27] MEDS: cloNIDine HCL 0.1 MG TAB PO SCH ×3 (06:01→21:36)
[2016-11-27] MEDS: GABAPENTIN 300 MG CAP PO SCH ×3 (06:01→21:36)
[2016-11-27] MEDS: ACCU-CHEK COMFORT CURVE STRIP VI SCH ×4 (07:05→22:02)
[2016-11-27] MEDS: InsuLIN REG 1unit/0.01ml Soln (100units/ml) SC SCH ×4 (07:06→22:03)
[2016-11-27 07:36] LABS: Albumin 2.6 g/dL (3.4-5.0); BUN/Creatinine Ratio 12.3; Bilirubin, Total 0.3 mg/dL (0.2-1.0); Total Protein 6.2 g/dL (6.4-8.2)
[2016-11-27] MEDS: MUPIROCIN 2% OINT 22GM EACHNOSTRI SCH ×2 (10:29→21:35)
[2016-11-27] MEDS: ENOXAPARIN SOD 40 MG/0.4 ML SYRINGE SC SCH (10:29)
[2016-11-27] MEDS: BENAZEPRIL HCL 10 MG TAB PO SCH ×2 (10:30→21:36)
[2016-11-27] MEDS: ASPirin 81 mg TAB PO SCH (10:30)
[2016-11-27] MEDS: SODIUM CHLORIDE 0.9% 1,000 ML IV SCH (11:15)
[2016-11-27] MEDS: VANCOMYCIN 1,250 MG in D5W 5% 250 ML IV SCH (16:33)
[2016-11-27] MEDS: ATORVASTATIN 20 MG TAB PO SCH (21:37)
[2016-11-28] VITALS (7 sets, daily range): BP systolic 118–140; BP diastolic 75–87
[2016-11-28] MEDS: MORPHINE SULF INJ 2 MG/ML SYRINGE 1ML IV PRN ×4 (03:32→19:53)
[2016-11-28] MEDS: LABETALOL HCL 200 MG TAB PO SCH ×3 (03:38→19:54)
[2016-11-28] MEDS: GABAPENTIN 300 MG CAP PO SCH ×3 (07:37→22:08)
[2016-11-28] MEDS: cloNIDine HCL 0.1 MG TAB PO SCH ×3 (07:37→22:08)
[2016-11-28] MEDS: MUPIROCIN 2% OINT 22GM EACHNOSTRI SCH ×2 (07:38→22:32)
[2016-11-28] MEDS: SODIUM CHLORIDE 0.9% 1,000 ML IV SCH (07:38)
[2016-11-28] MEDS: ACCU-CHEK COMFORT CURVE STRIP VI SCH ×4 (07:38→22:08)
[2016-11-28] MEDS: InsuLIN REG 1unit/0.01ml Soln (100units/ml) SC SCH ×4 (07:38→22:09)
[2016-11-28] MEDS: ENOXAPARIN SOD 40 MG/0.4 ML SYRINGE SC SCH (07:39)
[2016-11-28] MEDS: ASPirin 81 mg TAB PO SCH (07:39)
[2016-11-28] MEDS: BENAZEPRIL HCL 10 MG TAB PO SCH ×2 (07:39→22:08)
[2016-11-28 07:40] LABS: Basophils # (auto) 0 uL; Basophils % (auto) 0.3 % (0.0-2.0); CONDITION Y; Eosinophils # (auto) 0.4 uL; Eosinophils % (auto) 3.7 % (0.0-7.0); Hematocrit 31.8 % (41.0-53.0); Lymphocytes # (auto) 1.5 uL; Mean Corpuscular Hemoglobin 31.5 pg (28.0-32.0); Mean Corpuscular Hgb Conc. 34.6 g/dL (32.0-36.0); Mean Platelet Volume 8.7 fL (7.4-10.4); Monocytes # (auto) 0.7 uL; Monocytes % (auto) 6.9 % (0.0-12.0); Neutrophils # (auto) 7.6 uL; Neutrophils % (auto) 74.1 % (37.0-80.0); Platelet Count (auto) 228 10^3/uL (140-450); Red Cell Distribution Width 15.5 % (11.6-16.0); White Blood Cell 10.3 10^3/uL (4.4-10.8)
[2016-11-28 07:55] LABS: Potassium 4.4 mmol/L (3.5-5.1)
[2016-11-28 08:00] LABS: Albumin 2.9 g/dL (3.4-5.0); BUN/Creatinine Ratio 13.7; Bilirubin, Total 0.3 mg/dL (0.2-1.0); Total Protein 6.6 g/dL (6.4-8.2)
[2016-11-28] MEDS: HYDROcodone-ACET 5/325MG TAB PO PRN ×2 (10:32→17:09)
[2016-11-28] MEDS: VANCOMYCIN 1,250 MG in D5W 5% 250 ML IV SCH (15:57)
[2016-11-28] MEDS: ATORVASTATIN 20 MG TAB PO SCH (22:07)
[2016-11-29] VITALS (7 sets, daily range): BP systolic 133–146; BP diastolic 73–89
[2016-11-29] MEDS: MORPHINE SULF INJ 2 MG/ML SYRINGE 1ML IV PRN ×4 (01:39→19:36)
[2016-11-29] MEDS: SODIUM CHLORIDE 0.9% 1,000 ML IV SCH ×2 (02:41→22:06)
[2016-11-29] MEDS: LABETALOL HCL 200 MG TAB PO SCH ×3 (03:10→19:36)
[2016-11-29] MEDS: HYDROcodone-ACET 5/325MG TAB PO PRN ×2 (03:10→22:06)
[2016-11-29] MEDS: GABAPENTIN 300 MG CAP PO SCH ×3 (05:30→22:06)
[2016-11-29] MEDS: cloNIDine HCL 0.1 MG TAB PO SCH ×3 (05:30→22:05)
[2016-11-29 06:13] LABS: BUN/Creatinine Ratio 12.6; Bilirubin, Total 0.2 mg/dL (0.2-1.0); Calcium 8.4 mg/dL (8.5-10.1); Potassium 4.2 mmol/L (3.5-5.1)
[2016-11-29] MEDS: InsuLIN REG 1unit/0.01ml Soln (100units/ml) SC SCH ×4 (06:53→21:53)
[2016-11-29] MEDS: ACCU-CHEK COMFORT CURVE STRIP VI SCH ×4 (06:54→22:06)
[2016-11-29] MEDS: MUPIROCIN 2% OINT 22GM EACHNOSTRI SCH ×2 (10:47→22:06)
[2016-11-29] MEDS: ASPirin 81 mg TAB PO SCH (10:48)
[2016-11-29] MEDS: BENAZEPRIL HCL 10 MG TAB PO SCH ×2 (10:48→22:05)
[2016-11-29] MEDS: ENOXAPARIN SOD 40 MG/0.4 ML SYRINGE SC SCH (10:49)
[2016-11-29] MEDS: VANCOMYCIN 1,250 MG in D5W 5% 250 ML IV SCH (15:00)
[2016-11-29] MEDS: ATORVASTATIN 20 MG TAB PO SCH (22:06)
[2016-11-30] MEDS: LABETALOL HCL 200 MG TAB PO SCH ×2 (03:42→11:30)
[2016-11-30] MEDS: cloNIDine HCL 0.1 MG TAB PO SCH (05:21)
[2016-11-30] MEDS: GABAPENTIN 300 MG CAP PO SCH (05:21)
[2016-11-30] MEDS: HYDROcodone-ACET 5/325MG TAB PO PRN (05:21)
[2016-11-30 05:53] VITALS: BP 135/74
[2016-11-30] MEDS: ACCU-CHEK COMFORT CURVE STRIP VI SCH ×2 (06:35→11:30)
[2016-11-30] MEDS: InsuLIN REG 1unit/0.01ml Soln (100units/ml) SC SCH ×2 (06:35→11:30)
[2016-11-30 08:59] VITALS: BP 166/92
[2016-11-30] MEDS ORDERED: VANCOMYCIN 1GM/250ML D5W 250 ML IV SCH (10:00)
[2016-11-30] MEDS: MUPIROCIN 2% OINT 22GM EACHNOSTRI SCH (10:41)
[2016-11-30] MEDS: ASPirin 81 mg TAB PO SCH (10:41)
[2016-11-30] MEDS: ENOXAPARIN SOD 40 MG/0.4 ML SYRINGE SC SCH (10:41)
[2016-11-30] MEDS: BENAZEPRIL HCL 10 MG TAB PO SCH (10:42)
[2016-11-30] MEDS: MORPHINE SULF INJ 2 MG/ML SYRINGE 1ML IV PRN (10:47)
== END 2016-11-30 12:35 | disposition home or self-care (01) | DRG 720 ==
LOC: EDBD 05:12 → ER 05:12 → TELE 05:13 → EDUNIT# 05:13 → TELE-E-ADS 14:27 → TELE-EAST 16:22 → EAST 11-28 18:40
PROVIDERS: ADMIT Nurse Practitioner Family; ATTEND Nurse Practitioner Acute Care
DX: A41.9 Sepsis, unspecified organism (principal); I21.4 Non-ST elevation (NSTEMI) myocardial infarction; J18.9 Pneumonia, unspecified organism; I13.0 Hypertensive heart and chronic kidney disease with heart failure and stage 1 through stage 4 chronic kidney disease, or unspecified chronic kidney disease; I42.9 Cardiomyopathy, unspecified; E44.0 Moderate protein-calorie malnutrition; N17.9 Acute kidney failure, unspecified; E66.01 Morbid (severe) obesity due to excess calories; I50.20 Unspecified systolic (congestive) heart failure; N18.3 Chronic kidney disease, stage 3 (moderate); E11.21 Type 2 diabetes mellitus with diabetic nephropathy; E78.5 Hyperlipidemia, unspecified; F17.210 Nicotine dependence, cigarettes, uncomplicated; I16.9 Hypertensive crisis, unspecified; E11.22 Type 2 diabetes mellitus with diabetic chronic kidney disease; Z68.35 Body mass index [BMI] 35.0-35.9, adult; F12.10 Cannabis abuse, uncomplicated; F15.10 Other stimulant abuse, uncomplicated; I16.0 Hypertensive urgency; I25.119 Atherosclerotic heart disease of native coronary artery with unspecified angina pectoris; Z59.0 Homelessness; Z82.49 Family history of ischemic heart disease and other diseases of the circulatory system; Z83.3 Family history of diabetes mellitus; Z71.89 Other specified counseling; Z80.9 Family history of malignant neoplasm, unspecified; Z82.3 Family history of stroke; F19.10 Other psychoactive substance abuse, uncomplicated; B95.62 Methicillin resistant Staphylococcus aureus infection as the cause of diseases classified elsewhere
CPT/HCPCS: 36415; 71020; 80053; 80202; 80307; 81001; 82550; 82565; 82962; 83036; 83735; 83880; 84484; 85025; 85379; 85610; 85652; 85730; 87040; 87077; 87081; 87086; 87186; 94761; 96365; 96375; J0696; J1815; J1956; J2405; J3490; J7060

== ENCOUNTER 2016-12-23 06:03 | Inpatient (IN) | payer MEDICAID ==
[~2016-12-23] VITALS: Ht 177.8 cm; Wt 104.0 kg
[2016-12-23 07:25] LABS: Basophils # (auto) 0.1 uL; Basophils % (auto) 0.5 % (0.0-2.0); CONDITION Y; Eosinophils # (auto) 0.3 uL; Eosinophils % (auto) 2.9 % (0.0-7.0); Hematocrit 38.3 % (41.0-53.0); Lymphocytes # (auto) 1.5 uL; Lymphocytes % (auto) 13.9 % (10.0-50.0); Mean Corpuscular Hemoglobin 30.3 pg (28.0-32.0); Mean Corpuscular Hgb Conc. 33.9 g/dL (32.0-36.0); Mean Corpuscular Volume 89.3 fL (80.0-100.0); Mean Platelet Volume 9.1 fL (7.4-10.4); Monocytes # (auto) 0.6 uL; Monocytes % (auto) 5.1 % (0.0-12.0); Neutrophils # (auto) 8.5 uL; Neutrophils % (auto) 77.6 % (37.0-80.0); Platelet Count (auto) 260 10^3/uL (140-450); Red Cell Distribution Width 15.2 % (11.6-16.0)
[2016-12-23 07:47] LABS: Albumin 3.2 g/dL (3.4-5.0); B-Type Natriuretic Peptide 1622.52 pg/mL (0-100); BUN/Creatinine Ratio 7.8; Bilirubin, Total 0.9 mg/dL (0.2-1.0); Calcium 8.3 mg/dL (8.5-10.1); Total Protein 7.2 g/dL (6.4-8.2)
[2016-12-23 07:56] LABS: Temperature: 23.1 C (20.0-25.0)
[2016-12-23] MEDS ORDERED: SODIUM CHLORIDE 0.9% 1,000 ML IV ONE (08:12)
[2016-12-23] MEDS ORDERED: DILTIAZEM HCL 25 MG/5 ML VIAL IV ONE (08:15)
[2016-12-23 08:38] LABS: Urine Bilirubin Negative (Negative); Urine Color Yellow (Yellow); Urine Glucose Normal (Normal); Urine Ketone Negative (Negative); Urine Nitrite Negative (Negative); Urine RBC 1 /hpf (0 - 3); Urine Squamous Epithelial Cell FEW /hpf (<5); Urine Urobilinogen Normal (Negative); Urine pH 6.5 (5.0-8.0)
[2016-12-23 08:39] LABS: Urine Blood 1+ /uL (Negative)
[2016-12-23] MEDS ORDERED: POTASSIUM CHL 10% (20 MEQ/15ML) ORAL SOLN PO ONE (12:15)
[2016-12-23] MEDS ORDERED: FUROSEMIDE 40 MG/4 ML VIAL IV ONE (12:15)
[2016-12-23] MEDS ORDERED: NITROGLYCERIN 0.4 MG SL TAB SL PRN (12:30)
[2016-12-23] MEDS ORDERED: MORPHINE SULF INJ 2 MG/ML SYRINGE 1ML IV PRN (12:30)
[2016-12-23] MEDS ORDERED: HYDROcodone-ACET 5/325MG TAB PO PRN (12:30)
[2016-12-23] MEDS ORDERED: LORazepam 0.5 MG TAB PO PRN (12:30)
[2016-12-23] MEDS ORDERED: ALBUTEROL SULF 2.5 MG/0.5ML(0.5%) NEB SOLN NEB PRN (12:30)
[2016-12-23] MEDS ORDERED: TEMAZEPAM 15 MG CAP PO PRN (12:30)
[2016-12-23] MEDS ORDERED: DEXTROSE (50%) 50ML SYRG IV PRN (12:30)
[2016-12-23] MEDS ORDERED: PROMETHAZINE HCL 25 MG/ML 1ML IV PRN (12:30)
[2016-12-23] MEDS ORDERED: ACETAMINOPHEN 500 MG TAB PO PRN (12:30)
[2016-12-23] MEDS ORDERED: LACTULOSE 20Gm/30ML SOLN PO PRN (12:30)
[2016-12-23] MEDS: NITROGLYCERIN 0.2MG/HR TOPICAL PATCH TD SCH (13:21)
[2016-12-23] MEDS: ENOXAPARIN SOD 40 MG/0.4 ML SYRINGE SC SCH (14:17)
[2016-12-23] MEDS: MORPHINE SULFATE 4 MG/ML SYRG IV PRN ×3 (14:17→22:08)
[2016-12-23] MEDS: GABAPENTIN 300 MG CAP PO SCH ×2 (14:17→22:06)
[2016-12-23 16:00] VITALS: BP 164/94
[2016-12-23] MEDS: ACCU-CHEK COMFORT CURVE STRIP VI SCH ×2 (16:58→23:13)
[2016-12-23 17:00] VITALS: BP 164/94
[2016-12-23] MEDS: InsuLIN REG 1unit/0.01ml Soln (100units/ml) SC SCH ×2 (17:14→23:14)
[2016-12-23] MEDS: ALBUTEROL SULF 2.5 MG/0.5ML(0.5%) NEB SOLN NEB SCH (18:16)
[2016-12-23 20:00] VITALS: BP 150/80
[2016-12-23 21:30] VITALS: BP 150/80
[2016-12-23] MEDS: LISINOPRIL 20 MG TAB PO SCH (22:05)
[2016-12-23] MEDS: PRAVASTATIN SODIUM 20 MG TAB PO SCH (22:06)
[2016-12-23] MEDS: CARVEDILOL 3.125 MG TAB PO SCH (22:07)
[2016-12-24 04:18] VITALS: BP 150/80
[2016-12-24] MEDS: MORPHINE SULFATE 4 MG/ML SYRG IV PRN ×5 (04:57→21:02)
[2016-12-24 05:00] VITALS: BP 154/83
[2016-12-24] MEDS: ACCU-CHEK COMFORT CURVE STRIP VI SCH ×4 (06:44→22:17)
[2016-12-24] MEDS: InsuLIN REG 1unit/0.01ml Soln (100units/ml) SC SCH ×4 (06:44→22:17)
[2016-12-24] MEDS: GABAPENTIN 300 MG CAP PO SCH ×3 (06:44→22:17)
[2016-12-24] MEDS: ALBUTEROL SULF 2.5 MG/0.5ML(0.5%) NEB SOLN NEB SCH ×4 (06:46→18:00)
[2016-12-24 09:21] VITALS: BP 138/89
[2016-12-24 09:36] LABS: B-Type Natriuretic Peptide 1846.25 pg/mL (0-100)
[2016-12-24] MEDS ORDERED: ENOXAPARIN SOD 40 MG/0.4 ML SYRINGE SC SCH (10:00)
[2016-12-24] MEDS: NITROGLYCERIN 0.2MG/HR TOPICAL PATCH TD SCH (10:24)
[2016-12-24] MEDS: ENOXAPARIN SOD 40 MG/0.4 ML SYRINGE SC SCH (10:24)
[2016-12-24] MEDS: POTASSIUM CHL 20 Meq TABLET PO SCH (10:25)
[2016-12-24] MEDS: FUROSEMIDE 40 MG/4 ML VIAL IV SCH (10:25)
[2016-12-24] MEDS: CARVEDILOL 3.125 MG TAB PO SCH ×2 (10:26→22:16)
[2016-12-24] MEDS: ASPirin 81 mg TAB PO SCH (10:26)
[2016-12-24] MEDS: PANTOPRAZOLE 40 MG TAB PO SCH (10:26)
[2016-12-24] MEDS: LISINOPRIL 20 MG TAB PO SCH (10:26)
[2016-12-24 12:07] VITALS: BP 155/80
[2016-12-24 21:48] VITALS: BP 157/81
[2016-12-24 21:49] VITALS: BP 155/80
[2016-12-24] MEDS: PRAVASTATIN SODIUM 20 MG TAB PO SCH (22:15)
[2016-12-25] MEDS: ALBUTEROL SULF 2.5 MG/0.5ML(0.5%) NEB SOLN NEB SCH ×4 (00:23→19:41)
[2016-12-25] MEDS: MORPHINE SULFATE 4 MG/ML SYRG IV PRN ×4 (04:36→20:30)
[2016-12-25 05:21] VITALS: BP 159/104
[2016-12-25] MEDS: GABAPENTIN 300 MG CAP PO SCH ×3 (06:21→22:36)
[2016-12-25] MEDS: ACCU-CHEK COMFORT CURVE STRIP VI SCH ×4 (06:21→22:00)
[2016-12-25] MEDS: InsuLIN REG 1unit/0.01ml Soln (100units/ml) SC SCH ×4 (07:18→22:00)
[2016-12-25 09:00] VITALS: BP 147/81
[2016-12-25] MEDS: FUROSEMIDE 40 MG/4 ML VIAL IV SCH ×2 (09:57→22:34)
[2016-12-25] MEDS: ENOXAPARIN SOD 40 MG/0.4 ML SYRINGE SC SCH (09:57)
[2016-12-25] MEDS: NITROGLYCERIN 0.2MG/HR TOPICAL PATCH TD SCH (09:57)
[2016-12-25] MEDS: ASPirin 81 mg TAB PO SCH (09:57)
[2016-12-25] MEDS: PANTOPRAZOLE 40 MG TAB PO SCH (09:57)
[2016-12-25] MEDS: POTASSIUM CHL 20 Meq TABLET PO SCH ×2 (09:57→22:35)
[2016-12-25] MEDS: CARVEDILOL 3.125 MG TAB PO SCH ×2 (09:58→22:35)
[2016-12-25 13:00] VITALS: BP 138/90
[2016-12-25 17:06] VITALS: BP 144/82
[2016-12-25] MEDS ORDERED: THROAT LOZENGES(CEPASTAT) MT PRN (17:15)
[2016-12-25 22:00] VITALS: BP 140/86
[2016-12-25] MEDS: PRAVASTATIN SODIUM 20 MG TAB PO SCH (22:36)
[2016-12-26] MEDS: ALBUTEROL SULF 2.5 MG/0.5ML(0.5%) NEB SOLN NEB SCH ×3 (00:44→11:38)
[2016-12-26 05:30] VITALS: BP 131/76
[2016-12-26] MEDS: GABAPENTIN 300 MG CAP PO SCH (06:39)
[2016-12-26] MEDS: MORPHINE SULFATE 4 MG/ML SYRG IV PRN (06:40)
[2016-12-26] MEDS: InsuLIN REG 1unit/0.01ml Soln (100units/ml) SC SCH ×2 (07:00→12:08)
[2016-12-26] MEDS: ACCU-CHEK COMFORT CURVE STRIP VI SCH ×2 (07:00→11:30)
[2016-12-26 07:25] VITALS: BP 126/76
[2016-12-26 08:07] LABS: BUN/Creatinine Ratio 11.7; Calcium 8.2 mg/dL (8.5-10.1); Potassium 3.3 mmol/L (3.5-5.1)
[2016-12-26] MEDS: ASPirin 81 mg TAB PO SCH (09:23)
[2016-12-26] MEDS: NITROGLYCERIN 0.2MG/HR TOPICAL PATCH TD SCH (09:23)
[2016-12-26] MEDS: POTASSIUM CHL 20 Meq TABLET PO SCH (09:23)
[2016-12-26] MEDS: ENOXAPARIN SOD 40 MG/0.4 ML SYRINGE SC SCH (09:23)
[2016-12-26] MEDS: PANTOPRAZOLE 40 MG TAB PO SCH (09:23)
[2016-12-26] MEDS: FUROSEMIDE 40 MG/4 ML VIAL IV SCH (09:24)
[2016-12-26] MEDS: CARVEDILOL 3.125 MG TAB PO SCH (09:24)
[2016-12-26] MEDS ORDERED: POTASSIUM CHL 20 Meq TABLET PO ONE (11:00)
[2016-12-26 11:29] VITALS: BP 126/76
== END 2016-12-26 13:10 | disposition home or self-care (01) | DRG 194 ==
LOC: ER 06:06 → TELE 06:07 → TELE-CENTR 15:49
PROVIDERS: ADMIT Internal Medicine; ATTEND Internal Medicine Pulmonary Disease
DX: I13.0 Hypertensive heart and chronic kidney disease with heart failure and stage 1 through stage 4 chronic kidney disease, or unspecified chronic kidney disease (principal); E11.21 Type 2 diabetes mellitus with diabetic nephropathy; E44.0 Moderate protein-calorie malnutrition; I42.0 Dilated cardiomyopathy; E11.40 Type 2 diabetes mellitus with diabetic neuropathy, unspecified; N18.3 Chronic kidney disease, stage 3 (moderate); E87.6 Hypokalemia; E11.22 Type 2 diabetes mellitus with diabetic chronic kidney disease; E78.5 Hyperlipidemia, unspecified; F12.10 Cannabis abuse, uncomplicated; F15.10 Other stimulant abuse, uncomplicated; F17.210 Nicotine dependence, cigarettes, uncomplicated; I50.43 Acute on chronic combined systolic (congestive) and diastolic (congestive) heart failure; J44.9 Chronic obstructive pulmonary disease, unspecified; M94.0 Chondrocostal junction syndrome [Tietze]; Z82.49 Family history of ischemic heart disease and other diseases of the circulatory system; Z83.3 Family history of diabetes mellitus; Z59.0 Homelessness; Z91.19 Patient's noncompliance with other medical treatment and regimen; Z79.82 Long term (current) use of aspirin; Z79.899 Other long term (current) drug therapy
CPT/HCPCS: 36415; 71020; 80048; 80053; 80307; 81001; 82550; 82962; 83036; 83735; 83880; 84443; 84484; 85025; 85379; 85652; 86141; 87070; 87081; 87205; 93005; 94640; 94761; 96361; 96374; J1815

== ENCOUNTER 2017-01-01 09:18 | Emergency (ER) | payer MEDICAID ==
[~2017-01-01] VITALS: Ht 177.8 cm; Wt 99.8 kg
[~2017-01-01 09:18] MED LIST changes: -LISI40TA PO
[2017-01-01 09:46] LABS: Basophils # (auto) 0 uL; Basophils % (auto) 0.4 % (0.0-2.0); CONDITION Y; Eosinophils # (auto) 0.3 uL; Eosinophils % (auto) 3.3 % (0.0-7.0); Hemoglobin 11.7 g/dL (13.5-17.5); Lymphocytes # (auto) 1.6 uL; Lymphocytes % (auto) 17.5 % (10.0-50.0); Mean Corpuscular Hemoglobin 29.7 pg (28.0-32.0); Mean Corpuscular Hgb Conc. 33.5 g/dL (32.0-36.0); Mean Corpuscular Volume 88.6 fL (80.0-100.0); Mean Platelet Volume 8.5 fL (7.4-10.4); Monocytes # (auto) 0.5 uL; Monocytes % (auto) 5.6 % (0.0-12.0); Neutrophils # (auto) 6.7 uL; Neutrophils % (auto) 73.2 % (37.0-80.0); Platelet Count (auto) 326 10^3/uL (140-450); Red Cell Distribution Width 15.1 % (11.6-16.0); White Blood Cell 9.2 10^3/uL (4.4-10.8)
[2017-01-01] MEDS ORDERED: FUROSEMIDE 40 MG/4 ML VIAL IV ONE (10:00)
[2017-01-01 10:12] LABS: Albumin 3.1 g/dL (3.4-5.0); BUN/Creatinine Ratio 7.7; Bilirubin, Total 0.3 mg/dL (0.2-1.0); Calcium 8.1 mg/dL (8.5-10.1); Potassium 3.3 mmol/L (3.5-5.1)
[2017-01-01 10:40] LABS: B-Type Natriuretic Peptide 1667.17 pg/mL (0-100)
[2017-01-01 10:42] LABS: Temperature: 23.1 C (20.0-25.0)
[2017-01-01 10:47] VITALS: BP 158/97
== END 2017-01-01 11:30 | disposition home or self-care (01) ==
LOC: EDUNIT# 09:22 → ER 09:22
DX: F15.10 Other stimulant abuse, uncomplicated (principal); I13.0 Hypertensive heart and chronic kidney disease with heart failure and stage 1 through stage 4 chronic kidney disease, or unspecified chronic kidney disease; E11.22 Type 2 diabetes mellitus with diabetic chronic kidney disease; I50.9 Heart failure, unspecified; E78.00 Pure hypercholesterolemia, unspecified; N18.4 Chronic kidney disease, stage 4 (severe); F17.210 Nicotine dependence, cigarettes, uncomplicated
CPT/HCPCS: 36415; 71010; 80053; 83880; 84484; 85025; 93005; 94761; 96374; 99285; J1940

== ENCOUNTER 2017-01-24 03:13 | Emergency (ER) | payer MEDICAID ==
[~2017-01-24] VITALS: Ht 177.8 cm; Wt 99.8 kg
[2017-01-24 03:20] VITALS: BP 132/93
[2017-01-24 04:35] LABS: Albumin 3.1 g/dL (3.4-5.0); BUN/Creatinine Ratio 7.9; Potassium 3.5 mmol/L (3.5-5.1)
[2017-01-24 04:38] LABS: Bilirubin, Total 0.5 mg/dL (0.2-1.0)
[2017-01-24 06:20] LABS: Temperature: 21.8 C (20.0-25.0)
[2017-01-24 06:34] LABS: Basophils # (auto) 0 uL; Basophils % (auto) 0.4 % (0.0-2.0); CONDITION Y; Eosinophils # (auto) 0.2 uL; Eosinophils % (auto) 2.1 % (0.0-7.0); Hematocrit 38.7 % (41.0-53.0); Lymphocytes # (auto) 1.6 uL; Lymphocytes % (auto) 15.2 % (10.0-50.0); Mean Corpuscular Hemoglobin 29.7 pg (28.0-32.0); Mean Corpuscular Hgb Conc. 33.6 g/dL (32.0-36.0); Mean Corpuscular Volume 88.4 fL (80.0-100.0); Mean Platelet Volume 10.6 fL (7.4-10.4); Monocytes # (auto) 0.7 uL; Monocytes % (auto) 6.9 % (0.0-12.0); Neutrophils # (auto) 8.1 uL; Neutrophils % (auto) 75.4 % (37.0-80.0); Platelet Count (auto) 229 10^3/uL (140-450); Red Cell Distribution Width 16.7 % (11.6-16.0); White Blood Cell 10.7 10^3/uL (4.4-10.8)
[2017-01-24] MEDS ORDERED: KETOROLAC TROMETH 60MG/2ML VIAL IM ONE (07:45)
[2017-01-24 08:51] LABS: Urine Bilirubin Negative (Negative); Urine Blood 1+ /uL (Negative); Urine Color Yellow (Yellow); Urine Glucose Normal (Normal); Urine Ketone Negative (Negative); Urine Nitrite Negative (Negative); Urine RBC 1 /hpf (0 - 3); Urine Squamous Epithelial Cell FEW /hpf (<5); Urine Urobilinogen Normal (Negative)
[2017-01-28] MEDS ORDERED: QUET50TA PO ×2 (10:11)
[2017-01-28] MEDS ORDERED: LEVEMIR SC (12:41)
[2017-01-28] MEDS ORDERED: LISI40TA PO (12:42)
== END 2017-01-24 09:04 | disposition home or self-care (01) ==
LOC: EDUNIT# 03:18 → ER 03:18
DX: R10.31 Right lower quadrant pain (principal); I13.0 Hypertensive heart and chronic kidney disease with heart failure and stage 1 through stage 4 chronic kidney disease, or unspecified chronic kidney disease; I50.9 Heart failure, unspecified; N18.4 Chronic kidney disease, stage 4 (severe); E11.22 Type 2 diabetes mellitus with diabetic chronic kidney disease; E78.5 Hyperlipidemia, unspecified; F17.210 Nicotine dependence, cigarettes, uncomplicated; Z79.899 Other long term (current) drug therapy
CPT/HCPCS: 36415; 74176; 80053; 81001; 83880; 85025; 96372; 99285; J1885

== ENCOUNTER 2017-02-11 05:28 | Emergency (ER) | payer MEDICAID ==
[~2017-02-11] VITALS: Ht 177.8 cm; Wt 99.8 kg
[~2017-02-11 05:28] MED LIST changes: +ATOR20TA50 PO; +CAR3125T PO; +FUR20T PO; +LEVEMIR SC; +LISI40TA PO; -LOVA10TA54 PO; +POTA10TA34 PO; +QUET50TA PO
[2017-02-11 06:15] LABS: Basophils # (auto) 0.1 uL; Basophils % (auto) 1.1 % (0.0-2.0); Eosinophils # (auto) 0.3 uL; Hematocrit 40.4 % (41.0-53.0); Hemoglobin 13.2 g/dL (13.5-17.5); Lymphocytes % (auto) 22.8 % (10.0-50.0); Mean Corpuscular Hemoglobin 28.9 pg (28.0-32.0); Mean Corpuscular Hgb Conc. 32.7 g/dL (32.0-36.0); Mean Corpuscular Volume 88.2 fL (80.0-100.0); Mean Platelet Volume 9.2 fL (6.9-10.8); Monocytes # (auto) 0.7 uL; Monocytes % (auto) 7.5 % (0.0-12.0); Neutrophils # (auto) 5.8 uL; Neutrophils % (auto) 65.6 % (37.0-80.0); Platelet Count (auto) 274 10^3/uL (140-450); Red Cell Distribution Width 15.7 % (11.8-14.3); White Blood Cell 8.8 10^3/uL (4.4-10.8)
[2017-02-11 06:35] LABS: Albumin 3.1 g/dL (3.4-5.0); Bilirubin, Total 0.4 mg/dL (0.2-1.0); Calcium 8.2 mg/dL (8.5-10.1); Total Protein 6.8 g/dL (6.4-8.2)
[2017-02-11 06:51] LABS: B-Type Natriuretic Peptide 2538.56 pg/mL (0-100)
[2017-02-11 06:52] LABS: Temperature: 22.5 C (20.0-25.0)
[2017-02-11] MEDS ORDERED: cloNIDine HCL 0.1 MG TAB PO ONE (07:15)
[2017-02-11] MEDS ORDERED: FUROSEMIDE 40 MG/4 ML VIAL IV ONE (07:15)
[2017-02-11 08:17] LABS: Urine Bilirubin Negative (Negative); Urine Blood TRACE /uL (Negative); Urine Color Yellow (Yellow); Urine Glucose Normal (Normal); Urine Ketone Negative (Negative); Urine Mucus FEW (None Seen); Urine Nitrite Negative (Negative); Urine RBC 2 /hpf (0 - 3); Urine Squamous Epithelial Cell FEW /hpf (<5); Urine Urobilinogen Normal (Negative); Urine pH 6.5 (5.0-8.0)
[2017-02-11 08:58] VITALS: BP 152/95
== END 2017-02-11 16:40 | disposition home or self-care (01) ==
LOC: ER 05:29
DX: I50.9 Heart failure, unspecified (principal); I13.0 Hypertensive heart and chronic kidney disease with heart failure and stage 1 through stage 4 chronic kidney disease, or unspecified chronic kidney disease; N18.9 Chronic kidney disease, unspecified; E11.22 Type 2 diabetes mellitus with diabetic chronic kidney disease; F12.10 Cannabis abuse, uncomplicated; F15.10 Other stimulant abuse, uncomplicated; F17.210 Nicotine dependence, cigarettes, uncomplicated; F20.9 Schizophrenia, unspecified; E78.5 Hyperlipidemia, unspecified; Z79.4 Long term (current) use of insulin; Z79.82 Long term (current) use of aspirin; Z59.0 Homelessness
CPT/HCPCS: 36415; 71010; 80053; 80307; 81001; 83880; 84484; 85025; 93005; 96374; 99285; J1940

== ENCOUNTER 2017-02-19 12:45 | Observation (INO) | payer SELFPAY ==
[~2017-02-19] VITALS: Ht 177.8 cm; Wt 99.8 kg
[2017-02-19 20:21] LABS: Basophils # (auto) 0.1 uL; Basophils % (auto) 0.5 % (0.0-2.0); Eosinophils # (auto) 0.1 uL; Eosinophils % (auto) 0.4 % (0.0-7.0); Hematocrit 41.1 % (41.0-53.0); Hemoglobin 13.2 g/dL (13.5-17.5); Lymphocytes # (auto) 1.9 uL; Lymphocytes % (auto) 10.7 % (10.0-50.0); Mean Corpuscular Hemoglobin 28.3 pg (28.0-32.0); Mean Corpuscular Volume 88.4 fL (80.0-100.0); Mean Platelet Volume 9.2 fL (6.9-10.8); Monocytes # (auto) 1.5 uL; Monocytes % (auto) 8.4 % (0.0-12.0); Neutrophils # (auto) 14.5 uL; Nucleated Red Blood Cells % 0.1 %; Platelet Count (auto) 238 10^3/uL (140-450); Red Cell Distribution Width 15.9 % (11.8-14.3); White Blood Cell 18.1 10^3/uL (4.4-10.8)
[2017-02-19 20:27] LABS: Albumin 2.9 g/dL (3.4-5.0); BUN/Creatinine Ratio 9.7; Calcium 8.4 mg/dL (8.5-10.1); Potassium 3.6 mmol/L (3.5-5.1)
[2017-02-19 20:28] LABS: Bilirubin, Total 0.5 mg/dL (0.2-1.0); Total Protein 6.8 g/dL (6.4-8.2)
[2017-02-19 20:49] LABS: B-Type Natriuretic Peptide 2317.48 pg/mL (0-100)
[2017-02-19 21:03] LABS: Temperature: 21.6 C (20.0-25.0)
[2017-02-19] MEDS ORDERED: cefTRIAXone 1GM/50ML D5W 50 ML IV ONE (22:00)
[2017-02-19] MEDS ORDERED: PIPERACILLIN-TAZOB 3.375GM 100 ML IV ONE (22:00)
[2017-02-19 22:19] LABS: Urine Bilirubin Negative (Negative); Urine Blood TRACE /uL (Negative); Urine Color Yellow (Yellow); Urine Glucose Normal (Normal); Urine Ketone Negative (Negative); Urine Nitrite Negative (Negative); Urine RBC 1 /hpf (0 - 3); Urine Squamous Epithelial Cell FEW /hpf (<5); Urine Urobilinogen Normal (Negative)
[2017-02-20] MEDS ORDERED: FUROSEMIDE 40 MG/4 ML VIAL IV ONE
[2017-02-20] MEDS ORDERED: MORPHINE SULF INJ 2 MG/ML SYRINGE 1ML ONE (00:05)
[2017-02-20] MEDS ORDERED: cloNIDine HCL 0.1 MG TAB PO ONE ×2 (04:30→11:45)
[2017-02-20] MEDS ORDERED: MORPHINE SULF INJ 2 MG/ML SYRINGE 1ML IV ONE ×3 (04:30→20:30)
[2017-02-20] MEDS: PIPERACILLIN-TAZOB 3.375GM 100 ML IV SCH ×3 (05:40→18:11)
[2017-02-20] MEDS ORDERED: VANCOMYCIN 1GM/250ML D5W 250 ML IV ONE (07:30)
[2017-02-20] MEDS ORDERED: cefTRIAXone 1GM/50ML D5W 50 ML IV SCH (10:00)
[2017-02-20] MEDS ORDERED: NICOTINE 21MG/24 HR TOPICAL PATCH TD SCH (10:00)
[2017-02-20] MEDS ORDERED: HYDROcodone-ACET 5/325MG TAB PO ONE (11:15)
[2017-02-20] MEDS ORDERED: VANCOMYCIN PER PHARMACY 0 MG IV SCH (13:00)
[2017-02-20] MEDS ORDERED: ONDANSETRON HCL 4 MG/2 ML VIAL IV ONE ×2 (20:30)
[2017-02-20 23:31] VITALS: BP 127/79
[2017-02-21] MEDS ORDERED: VANCOMYCIN 1GM/250ML D5W 250 ML IV SCH (08:00)
== END 2017-02-20 23:49 | disposition short-term general hospital (02) | DRG 603 ==
LOC: ER 12:45 → OVERFLOW 12:46 → ER 02-20 23:49
PROVIDERS: ADMIT Emergency Medicine; ATTEND Emergency Medicine
DX: L03.114 Cellulitis of left upper limb (principal); E11.22 Type 2 diabetes mellitus with diabetic chronic kidney disease; E11.40 Type 2 diabetes mellitus with diabetic neuropathy, unspecified; I13.0 Hypertensive heart and chronic kidney disease with heart failure and stage 1 through stage 4 chronic kidney disease, or unspecified chronic kidney disease; F15.10 Other stimulant abuse, uncomplicated; R06.02 Shortness of breath; N18.9 Chronic kidney disease, unspecified; E78.5 Hyperlipidemia, unspecified; F17.210 Nicotine dependence, cigarettes, uncomplicated; F20.9 Schizophrenia, unspecified; J44.9 Chronic obstructive pulmonary disease, unspecified; L02.414 Cutaneous abscess of left upper limb; Z82.49 Family history of ischemic heart disease and other diseases of the circulatory system; Z83.3 Family history of diabetes mellitus
CPT/HCPCS: 36415; 71010; 72170; 73200; 80053; 80307; 81001; 82962; 83880; 85025; 85379; 87040; 93005; 93971; 96365; 96366; 96367; 96368; 96375; 96376; 99285; G0378; J0696; J1940; J2270; J2405; J2543; J3370; J7030

== ENCOUNTER 2017-03-19 07:39 | Emergency (ER) | payer MEDICAID ==
[~2017-03-19] VITALS: Ht 177.8 cm; Wt 95.3 kg
[~2017-03-19 07:39] MED LIST changes: -GLYB2.5T76 PO; +GLYB2.5T8 PO
[2017-03-19 08:25] VITALS: BP 139/94
== END 2017-03-19 08:32 | disposition left against medical advice (07) ==
LOC: ER 07:39 → EDUNIT# 07:39 → ER 08:32
DX: T82.118A Breakdown (mechanical) of other cardiac electronic device, initial encounter (principal); I13.0 Hypertensive heart and chronic kidney disease with heart failure and stage 1 through stage 4 chronic kidney disease, or unspecified chronic kidney disease; E11.22 Type 2 diabetes mellitus with diabetic chronic kidney disease; N18.9 Chronic kidney disease, unspecified; I50.9 Heart failure, unspecified; E78.5 Hyperlipidemia, unspecified; F17.210 Nicotine dependence, cigarettes, uncomplicated; F12.10 Cannabis abuse, uncomplicated; Z59.0 Homelessness; Y92.89 Other specified places as the place of occurrence of the external cause; Z53.29 Procedure and treatment not carried out because of patient's decision for other reasons
CPT/HCPCS: 93005

== ENCOUNTER 2017-05-24 21:25 | Emergency (ER) | payer MEDICAID ==
[~2017-05-24] VITALS: Ht 177.8 cm; Wt 96.2 kg
[~2017-05-24 21:25] MED LIST changes: +CLIN1CAP4 PO; +ESCI10TA PO; -GABA-497 PO; +GABA300C10 PO; +GABA300C11 PO; +GLY25T PO; +HYDR-4683 PO; +LISI-646 PO; +MET25T PO; +PANT40TA2 PO; +SACC250C PO
[2017-05-24 21:31] VITALS: BP 145/94
== END 2017-05-25 02:19 | disposition left against medical advice (07) ==
LOC: ER 21:25 → EDUNIT# 21:25 → ER 05-25 02:19
DX: R07.89 Other chest pain (principal); E11.22 Type 2 diabetes mellitus with diabetic chronic kidney disease; I13.0 Hypertensive heart and chronic kidney disease with heart failure and stage 1 through stage 4 chronic kidney disease, or unspecified chronic kidney disease; N18.9 Chronic kidney disease, unspecified; E78.5 Hyperlipidemia, unspecified; F17.210 Nicotine dependence, cigarettes, uncomplicated; F12.10 Cannabis abuse, uncomplicated; F15.10 Other stimulant abuse, uncomplicated; Z59.0 Homelessness
CPT/HCPCS: 71045; 93005

== ENCOUNTER 2017-06-04 05:37 | Emergency (ER) | payer MEDICAID ==
[~2017-06-04] VITALS: Ht 177.8 cm; Wt 96.2 kg
[2017-06-04 06:24] VITALS: BP 163/96
== END 2017-06-04 08:00 | disposition left against medical advice (07) ==
LOC: ER 05:37
DX: R07.89 Other chest pain (principal); I13.0 Hypertensive heart and chronic kidney disease with heart failure and stage 1 through stage 4 chronic kidney disease, or unspecified chronic kidney disease; E11.22 Type 2 diabetes mellitus with diabetic chronic kidney disease; N18.9 Chronic kidney disease, unspecified; I50.9 Heart failure, unspecified; F17.210 Nicotine dependence, cigarettes, uncomplicated; F12.10 Cannabis abuse, uncomplicated; F15.10 Other stimulant abuse, uncomplicated; Z53.29 Procedure and treatment not carried out because of patient's decision for other reasons; Z59.0 Homelessness

== ENCOUNTER 2017-06-10 18:34 | Emergency (ER) | payer MEDICAID ==
[~2017-06-10] VITALS: Ht 177.8 cm; Wt 96.2 kg
[2017-06-10 18:47] VITALS: BP 165/105
[2017-06-10 20:04] LABS: Basophils # (auto) 0.1 uL; Basophils % (auto) 0.4 % (0.0-2.0); Eosinophils # (auto) 0.3 uL; Eosinophils % (auto) 2.5 % (0.0-7.0); Hematocrit 39.3 % (41.0-53.0); Lymphocytes # (auto) 1.2 uL; Lymphocytes % (auto) 9.7 % (10.0-50.0); Mean Corpuscular Hemoglobin 29.3 pg (28.0-32.0); Mean Corpuscular Hgb Conc. 33.1 g/dL (32.0-36.0); Mean Corpuscular Volume 88.4 fL (80.0-100.0); Monocytes % (auto) 8.3 % (0.0-12.0); Neutrophils # (auto) 9.9 uL; Neutrophils % (auto) 79.1 % (37.0-80.0); Platelet Count (auto) 262 10^3/uL (140-450); Red Blood Cells 4.45 10^6/uL (4.5-5.90); Red Cell Distribution Width 15.4 % (11.8-14.3); White Blood Cell 12.5 10^3/uL (4.4-10.8)
[2017-06-10 20:19] LABS: Albumin 3.1 g/dL (3.4-5.0); BUN/Creatinine Ratio 7.6; Calcium 8.3 mg/dL (8.5-10.1); Potassium 3.8 mmol/L (3.5-5.1)
[2017-06-10 20:26] LABS: Bilirubin, Total 0.6 mg/dL (0.2-1.0); Total Protein 7.2 g/dL (6.4-8.2)
== END 2017-06-10 20:13 | disposition left against medical advice (07) ==
LOC: ER 18:34
DX: F12.288 Cannabis dependence with other cannabis-induced disorder (principal); F15.10 Other stimulant abuse, uncomplicated; F17.210 Nicotine dependence, cigarettes, uncomplicated; I13.0 Hypertensive heart and chronic kidney disease with heart failure and stage 1 through stage 4 chronic kidney disease, or unspecified chronic kidney disease; E11.22 Type 2 diabetes mellitus with diabetic chronic kidney disease; N18.9 Chronic kidney disease, unspecified; I50.9 Heart failure, unspecified; Z90.89 Acquired absence of other organs; Z59.0 Homelessness; Z79.2 Long term (current) use of antibiotics; Z79.4 Long term (current) use of insulin; Z79.82 Long term (current) use of aspirin; Z79.899 Other long term (current) drug therapy; Z53.29 Procedure and treatment not carried out because of patient's decision for other reasons
CPT/HCPCS: 36415; 71046; 80053; 85025; 93005

== ENCOUNTER 2017-06-15 04:13 | Emergency (ER) | payer MEDICAID ==
[~2017-06-15] VITALS: Ht 177.8 cm; Wt 96.2 kg
[2017-06-15 04:57] LABS: Basophils # (auto) 0 uL; Basophils % (auto) 0.3 % (0.0-2.0); Eosinophils # (auto) 0.3 uL; Eosinophils % (auto) 3.1 % (0.0-7.0); Hematocrit 34.7 % (41.0-53.0); Hemoglobin 11.8 g/dL (13.5-17.5); Lymphocytes # (auto) 1.2 uL; Lymphocytes % (auto) 11.5 % (10.0-50.0); Mean Corpuscular Hemoglobin 29.5 pg (28.0-32.0); Mean Corpuscular Hgb Conc. 34.1 g/dL (32.0-36.0); Mean Corpuscular Volume 86.6 fL (80.0-100.0); Monocytes % (auto) 9.2 % (0.0-12.0); Neutrophils # (auto) 8.2 uL; Neutrophils % (auto) 75.9 % (37.0-80.0); Platelet Count (auto) 223 10^3/uL (140-450); White Blood Cell 10.7 10^3/uL (4.4-10.8)
[2017-06-15] MEDS ORDERED: IPRATROPIUM BROM 0.5 MG/2.5ML INH SOL NEB ONE (05:00)
[2017-06-15] MEDS ORDERED: ALBUTEROL SULF 2.5 MG/0.5ML(0.5%) NEB SOLN NEB ONE (05:00)
[2017-06-15 05:19] LABS: Albumin 2.7 g/dL (3.4-5.0); BUN/Creatinine Ratio 9.9; Bilirubin, Total 0.5 mg/dL (0.2-1.0); Calcium 7.8 mg/dL (8.5-10.1); Potassium 3.6 mmol/L (3.5-5.1)
[2017-06-15] MEDS ORDERED: NALBUPHINE HCL 10 MG/1ml INJECTION IV ONE ×2 (07:00)
[2017-06-15] MEDS ORDERED: FUROSEMIDE 20 MG/2 ML VIAL IV ONE (07:00)
[2017-06-15 08:03] VITALS: BP 139/88
== END 2017-06-15 08:40 | disposition home or self-care (01) ==
LOC: ER 04:17
DX: I13.0 Hypertensive heart and chronic kidney disease with heart failure and stage 1 through stage 4 chronic kidney disease, or unspecified chronic kidney disease (principal); I50.9 Heart failure, unspecified; N18.9 Chronic kidney disease, unspecified; E11.22 Type 2 diabetes mellitus with diabetic chronic kidney disease; Z79.899 Other long term (current) drug therapy; E78.5 Hyperlipidemia, unspecified; F17.210 Nicotine dependence, cigarettes, uncomplicated; Z90.49 Acquired absence of other specified parts of digestive tract; Z59.0 Homelessness
CPT/HCPCS: 36415; 71045; 80053; 83735; 83880; 84484; 85025; 93005; 94640; 96374; 96375; 99285; J1940; J2300

== ENCOUNTER 2017-06-28 09:56 | Emergency (ER) | payer MEDICAID ==
[~2017-06-28] VITALS: Ht 177.8 cm; Wt 99.8 kg
[2017-06-28 10:11] VITALS: BP 160/98
== END 2017-06-28 12:31 | disposition left against medical advice (07) ==
LOC: ER 09:56
DX: R07.89 Other chest pain (principal); F15.10 Other stimulant abuse, uncomplicated; I11.0 Hypertensive heart disease with heart failure; I50.9 Heart failure, unspecified; F20.9 Schizophrenia, unspecified; E11.9 Type 2 diabetes mellitus without complications; E78.5 Hyperlipidemia, unspecified; F17.210 Nicotine dependence, cigarettes, uncomplicated; Z59.0 Homelessness; Z79.82 Long term (current) use of aspirin; Z79.4 Long term (current) use of insulin
CPT/HCPCS: 93005